=== PATIENT | female | born 1960 | race Caucasian/White ===

== ENCOUNTER → 2016-03-13 | Outpatient (CLI) | payer BC ==
--- NOTE | 2016-03-14 09:04 | MM ---
Reason for exam: screening (asymptomatic). Last mammogram was performed 1 year and 4 months ago. History: Patient is postmenopausal. Physical Findings: A clinical breast exam by your physician is recommended on an annual basis and results should be correlated with mammographic findings. MG Screening Mammo w CAD Bilateral CC and MLO view(s) were taken. Prior study comparison: November 19, 2014, bilateral MG screening mammo w CAD. There are scattered fibroglandular densities. No significant changes when compared with prior studies. ASSESSMENT: Negative, BI-RAD 1 RECOMMENDATION: Routine screening mammogram of both breasts in 1 year.
== END | disposition home or self-care (01) ==
LOC: RADMAMWWP 10:14
PROVIDERS: ATTEND Family Medicine
DX: Z12.31 Encounter for screening mammogram for malignant neoplasm of breast (principal)

== ENCOUNTER → 2016-09-05 | Outpatient (CLI) | payer BC ==
--- NOTE | 2016-09-05 15:21 | US ---
EXAMINATION TYPE: US thyroid st tissue head/neck DATE OF EXAM: 09/05/2016 COMPARISON: US CLINICAL HISTORY: Disorder of thyroid E07.9. Neck swelling GLAND SIZE: Right Lobe: 5.3 x 2.6 x 2.0 cm Overall Parenchyma: heterogenous Left Lobe: 5.5 x 2.0 x 1.9 cm Overall Parenchyma: heterogeneous Isthmus Thickness: 0.5 cm Previous right lobe thyroid measuring 5.5 x 2.7 x 2.0 cm. Previous left lobe thyroid measurement 5.0 x 2.2 x 1.7 cm. Bilateral neck scanned, no evidence of lymphadenopathy. Thyroid enlarged, heterogeneous with no defin ite nodules as seen on previous. IMPRESSION: Thyromegaly
== END | disposition home or self-care (01) ==
LOC: RADUSWWP 13:32
PROVIDERS: ATTEND Family Medicine
DX: E01.0 Iodine-deficiency related diffuse (endemic) goiter (principal)
CPT/HCPCS: 76536

== ENCOUNTER 2016-11-19 21:22 | Emergency (ER) | payer BC ==
[2016-11-19] MEDS ORDERED: IBUPROFEN 600 MG TAB PO STA (21:45)
--- NOTE | 2016-11-19 22:12 | XR ---
EXAMINATION TYPE: XR ankle complete RT DATE OF EXAM: 11/19/2016 CLINICAL HISTORY: Right ankle pain TECHNIQUE: Frontal, lateral and oblique images of the right ankle are obtained. COMPARISON: None. FINDINGS: There is no acute fracture/dislocation evident in the right ankle. The ankle mortise appe ars within normal limits. Soft tissue swelling is seen most pronounced over the lateral malleolus but surrounding the entirety of the ankle. Small inferior calcaneal heel spur is present. IMPRESSION: Mild ankle soft tissue swelling without acute fracture or dislocation in the right ankle.
--- NOTE | 2016-11-19 22:15 | ED ---
Lower Extremity Injury HPI - General Chief Complaint: Extremity Injury, Lower Stated Complaint: R foot injury Time Seen by Provider: 11/19/16 21:42 Source: patient Mode of arrival: ambulatory Limitations: no limitations - History of Present Illness Initial Comments: 56-year-old female patient presents to emergency department today for evaluation of right ankle pain. Patient states that she was up on a stool in curtains around noon today when the stool broke and she fell landing on her right foot, twisting her ankle. She states that since then she has had some swelling and pain to the area. States that she has a lot of pain with flexion of the foot. She states this makes an ambulation difficult. She denies any numbness or tingling to the foot. States that she has had ligament injury to the foot in the past. She denies falling when this happened, hitting her head, or losing consciousness. She denies any other injuries. Patient denies any headache, neck pain, back pain, chest pain, shortness of breath, dizziness, weakness, abdominal pain, nausea, vomiting, or difficulties with bowel movements or urination. - Related Data Home Medications Medication Instructions Recorded Confirmed Atorvastatin [Lipitor] 10 mg PO DAILY 11/19/16 11/19/16 Calcium Carbonate [Calcium] 600 mg PO DAILY 11/19/16 11/19/16 Cholecalciferol [Vitamin D3] 3,000 unit PO DAILY 11/19/16 11/19/16 Losartan [Cozaar] 50 mg PO DAILY 11/19/16 11/19/16 amLODIPine [Norvasc] 10 mg PO DAILY 11/19/16 11/19/16 metFORMIN HCL [Glucophage] 1,000 mg PO QAM 11/19/16 11/19/16 metFORMIN HCL [Glucophage] 500 mg PO HS 11/19/16 11/19/16 Previous Rx's Medication Instructions Recorded Ibuprofen [Motrin] 600 mg PO Q8HR PRN #30 tab 11/19/16 Allergies Allergy/AdvReac Type Severity Reaction Status Date / Time Penicillins Allergy Anaphylaxis Verified 11/19/16 21:42 Sulfa (Sulfonamide Allergy Anaphylaxis Verified 11/19/16 21:42 Antibiotics) Review of Systems ROS Statement: Those systems with pertinent positive or pertinent negative responses have been documented in the HPI. ROS Other: All systems not noted in ROS Statement are negative. Past Medical History Past Medical History: Hypertension History of Any Multi-Drug Resistant Organisms: None Reported Past Surgical History: Hysterectomy Past Psychological History: No Psychological Hx Reported Smoking Status: Current every day smoker Past Alcohol Use History: Rare Past Drug Use History: None Reported General Exam Limitations: no limitations General appearance: alert, in no apparent distress Head exam: Present: atraumatic, normocephalic, normal inspection Respiratory exam: Present: normal lung sounds bilaterally. Absent: respiratory distress, wheezes, rales, rhonchi, stridor Cardiovascular Exam: Present: regular rate, normal rhythm, normal heart sounds. Absent: systolic murmur, diastolic murmur, rubs, gallop, clicks Extremities exam: Present: tenderness (Tender in the medial and lateral aspects of the ankle.), normal capillary refill, joint swelling (Right ankle swelling, greatest over the right lateral malleolus.), other (Right ankle swelling noted. Skin is pink, warm, and dry. Cap refill less than 3 seconds.). Absent: full ROM (Increased pain with flexion, extension, eversion and inversion of the foot. ), pedal edema, calf tenderness Neurological exam: Present: alert, oriented X3, CN II-XII intact Psychiatric exam: Present: normal affect, normal mood Skin exam: Present: warm, dry, intact, normal color. Absent: rash Course Vital Signs 11/19/16 11/19/16 21:35 22:27 Temperature 98 F 97 F L Pulse Rate 104 H 90 Respiratory 20 18 Rate Blood Pressure 129/76 137/77 O2 Sat by Pulse 95 97 Oximetry Medical Decision Making - Medical Decision Making 56-year-old female patient presented for evaluation of right ankle injury after a fall around 12:00 this afternoon. X-ray was negative for any acute fracture or dislocation. Patient does exhibit soft tissue swelling and pain with range of motion of the ankle and foot. She will be placed in an ankle stirrup splint. Instructed her to perform activity as tolerated. She is instructed to rest, ice, and elevate the extremity. Instructed to take appropriate for pain control. Instructed to follow up for repeat x-ray in 7-10 days if her symptoms persist. She is instructed to return here immediately for any new, worsening, or concerning symptoms. She is to follow-up with her primary care physician one to 2 days for any other concerns. Patient verbalizes understanding and agrees with this plan. - Radiology Data Radiology results: report reviewed, image reviewed Frontal, lateral, and oblique images of the right ankle are obtained and showed no acute fracture or dislocation. The ankle mortise appears within normal limits. Soft tissue swelling is seen most pronounced over the lateral malleolus but surrounding the entirety of the ankle. Small inferior calcaneal heel spur is present. Impression by Dr. Andrews shows mild ankle soft tissue swelling without acute fracture or dislocation right ankle. Disposition Clinical Impression: Right ankle sprain Disposition: HOME SELF-CARE Condition: Good Instructions: Ankle Sprain (ED) Additional Instructions: Rest, elevate the extremity. Use splint for comfort. Pain persisting in 7-10 days to have repeat x-ray performed. Return here immediately for any new, worsening, or concerning symptoms. Prescriptions: Ibuprofen [Motrin] 600 mg PO Q8HR PRN #30 tab PRN Reason: Pain Referrals: Maco Reynolds DO [Primary Care Provider] - 1-2 days Time of Disposition: 22:15
[2016-11-19 22:28] VITALS: BP 137/77; PULSE 90; RESP 18; TEMP 97
== END 2016-11-19 22:28 | disposition home or self-care (01) ==
LOC: EC 21:22
DX: S93.401A Sprain of unspecified ligament of right ankle, initial encounter (principal); I10 Essential (primary) hypertension; F17.200 Nicotine dependence, unspecified, uncomplicated; Z79.84 Long term (current) use of oral hypoglycemic drugs; Z79.899 Other long term (current) drug therapy; Z88.0 Allergy status to penicillin; Z88.2 Allergy status to sulfonamides; W08.XXXA Fall from other furniture, initial encounter
CPT/HCPCS: 99283

== ENCOUNTER 2017-07-30 09:02 | Emergency (ER) | payer BC, OTHER ==
[2017-07-30 09:09] VITALS: BP 182/79; PULSE 104; RESP 20; TEMP 98.2
--- NOTE | 2017-07-30 10:20 | ED ---
General Adult HPI - General Chief complaint: ENT Stated complaint: Swollen Ear Time Seen by Provider: 07/30/17 10:04 Source: patient, RN notes reviewed Mode of arrival: ambulatory Limitations: no limitations - History of Present Illness Initial comments: Patient 57-year-old female presents to the emergency room today with a complaint of bilateral ear drainage at times on and off. She states she has chronic problems. She states she didn't at times notices is some drainage of years. She states specifically recent coming to the emergency room is that she' s noticed some swelling to the outer aspect of the right ear over the last few days. She states it is a little tender and painful. She states she notices it when she is eating because she feels the tugging pole of the skin. Patient denies any other complaints. Denies any injury. - Related Data Home Medications Medication Instructions Recorded Confirmed Atorvastatin [Lipitor] 10 mg PO DAILY 11/19/16 11/19/16 Calcium Carbonate [Calcium] 600 mg PO DAILY 11/19/16 11/19/16 Cholecalciferol [Vitamin D3] 3,000 unit PO DAILY 11/19/16 11/19/16 Losartan [Cozaar] 50 mg PO DAILY 11/19/16 11/19/16 amLODIPine [Norvasc] 10 mg PO DAILY 11/19/16 11/19/16 metFORMIN HCL [Glucophage] 1,000 mg PO QAM 11/19/16 11/19/16 metFORMIN HCL [Glucophage] 500 mg PO HS 11/19/16 11/19/16 Previous Rx's Medication Instructions Recorded Ibuprofen [Motrin] 600 mg PO Q8HR PRN #30 tab 11/19/16 Clindamycin HCl [Cleocin] 300 mg PO Q6HR #40 cap 07/30/17 Ofloxacin 0.3% Otic Soln [Floxin 10 drops BOTH EARS BID 7 Days ml 07/30/17 0.3% Otic Soln] Allergies Allergy/AdvReac Type Severity Reaction Status Date / Time Penicillins Allergy Anaphylaxis Verified 07/30/17 09:09 Sulfa (Sulfonamide Allergy Anaphylaxis Verified 07/30/17 09:09 Antibiotics) Review of Systems ROS Statement: Those systems with pertinent positive or pertinent negative responses have been documented in the HPI. ROS Other: All systems not noted in ROS Statement are negative. Past Medical History Past Medical History: Hypertension History of Any Multi-Drug Resistant Organisms: None Reported Past Surgical History: Hysterectomy Past Psychological History: No Psychological Hx Reported Smoking Status: Current every day smoker Past Alcohol Use History: Rare Past Drug Use History: None Reported General Exam - General Exam Comments Initial Comments: General: The patient is awake and alert, in no distress, and does not appear acutely ill. Eye: Pupils are equal, round and reactive to light, extra-ocular movements are intact. No nystagmus. There is normal conjunctiva bilaterally. No signs of icterus. Ears, nose, mouth and throat: There are moist mucous membranes and no oral lesions. Patient does have some mild drainage in the ear canal bilaterally that is white in nature. Patient does have swelling to the right ear on the outside that is red and tender on exam. Mild swelling to the base of the ear. Neck: The neck is supple, there is no tenderness or JVD. Musculoskeletal: Normal ROM, no tenderness. Strength 5/5. Sensation intact. Pulses equal bilaterally 2+. Neurological: A&O x 3. CN II-XII intact, There are no obvious motor or sensory deficits. Coordination appears grossly intact. Speech is normal. Skin: Skin is warm and dry and no rashes or lesions are noted. Psychiatric: Cooperative, appropriate mood & affect, normal judgment. Limitations: no limitations Course Vital Signs 07/30/17 09:07 Temperature 98.2 F Pulse Rate 104 H Respiratory 20 Rate Blood Pressure 182/79 O2 Sat by Pulse 96 Oximetry Medical Decision Making - Medical Decision Making Patient does admit to some chronic symptoms as drainage from the ears. She'll be placed on eardrops to cover for a otitis externa. Patient also has increased redness and inflammation to the outer aspect of the right year consistent with a cellulitis of the ear. Will be placed on oral antibiotics. She is advised follow-up with ENT over the next 2 days return if symptoms increase or worsen. Disposition Clinical Impression: Otitis externa of both ears, Cellulitis of external ear Disposition: HOME SELF-CARE Condition: Good Instructions: Cellulitis (ED) Additional Instructions: Please use medication as discussed. Please follow-up with ENT/family doctor in the next 2 days of symptoms have not improved. Please return to emergency room if the symptoms increase or worsen or for any other concerns. Prescriptions: Clindamycin HCl [Cleocin] 300 mg PO Q6HR #40 cap Ofloxacin 0.3% Otic Soln [Floxin 0.3% Otic Soln] 10 drops BOTH EARS BID 7 Days ml Is patient prescribed a controlled substance at d/c from ED?: No Referrals: Maco Reynolds DO [Primary Care Provider] - 1-2 days Waldo Guzmán MD [STAFF PHYSICIAN] - 1-2 days
== END 2017-07-30 10:26 | disposition home or self-care (01) ==
LOC: EC 09:02
DX: H60.93 Unspecified otitis externa, bilateral (principal); H60.11 Cellulitis of right external ear; I10 Essential (primary) hypertension; F17.200 Nicotine dependence, unspecified, uncomplicated; Z79.84 Long term (current) use of oral hypoglycemic drugs; Z79.899 Other long term (current) drug therapy; Z88.0 Allergy status to penicillin; Z88.2 Allergy status to sulfonamides
CPT/HCPCS: 99283

== ENCOUNTER 2019-03-09 23:41 | Emergency (ER) | payer BC ==
[2019-03-10 00:23] VITALS: BP 149/77; RESP 20; TEMP 98.1
[2019-03-10] MEDS ORDERED: cefTRIAXone 250 MG VIAL IM STA (01:06)
[2019-03-10] MEDS ORDERED: AZITHROMYCIN 500 MG TAB PO STA (01:06)
[2019-03-10] MEDS ORDERED: IPRATROPIUM-ALBUTEROL 3 ML NEB INHALATION STA (01:06)
[2019-03-10] MEDS ORDERED: BENZONATATE 100 MG CAP PO STA (01:06)
--- NOTE | 2019-03-10 01:07 | ED ---
URI HPI - General Chief Complaint: Upper Respiratory Infection Stated Complaint: URI Time Seen by Provider: 03/10/19 01:00 Source: patient, family, RN notes reviewed, old records reviewed Mode of arrival: ambulatory Limitations: no limitations - History of Present Illness Initial Comments: This is a 58-year-old female to the ED for evaluation. Patient presents today for evaluation of a cough congestion persisting cough and congestion states she has a smoker month admits to decreased appetite that she has been sick sick for about 2 months. Patient was is increased mainly increased cough and congestion. She has metastases immunizations being up-to-date but no recent travel history no country travel history and denies any pain. Patient did miss work today he work note for missing work today. Patient again has not smoked for the past month has no history of heart disease no significant medical history takes no medications for her heart she has are some mild diabetes. She has not any fevers MD Complaint: cough, sore throat, nasal congestion -: month(s) Severity: mild Severity scale (1-10): 3 Consistency: intermittent Improves With: nothing Worsens With: nothing Context: new medications (Patient just taking [id number] medications) Associated Symptoms: cough, weight loss Treatments Prior to Arrival: none - Related Data Home Medications Medication Instructions Recorded Confirmed Atorvastatin [Lipitor] 10 mg PO DAILY 11/19/16 07/30/17 Calcium Carbonate [Calcium] 600 mg PO DAILY 11/19/16 07/30/17 Cholecalciferol [Vitamin D3] 3,000 unit PO DAILY 11/19/16 07/30/17 Losartan [Cozaar] 50 mg PO DAILY 11/19/16 07/30/17 amLODIPine [Norvasc] 10 mg PO DAILY 11/19/16 07/30/17 metFORMIN HCL [Glucophage] 1,000 mg PO QAM 11/19/16 07/30/17 metFORMIN HCL [Glucophage] 500 mg PO HS 11/19/16 07/30/17 Loratadine [Claritin] 10 mg PO DAILY 07/30/17 07/30/17 Previous Rx's Medication Instructions Recorded Clindamycin HCl [Cleocin] 300 mg PO Q6HR #40 cap 07/30/17 Ofloxacin 0.3% Otic Soln [Floxin 10 drops BOTH EARS BID 7 Days ml 07/30/17 0.3% Otic Soln] Azithromycin [Zithromax Z-pack] 0 mg PO DIRECTED #1 pack 03/10/19 Benzonatate [Tessalon Perles] 100 mg PO TID #20 cap 03/10/19 Allergies Allergy/AdvReac Type Severity Reaction Status Date / Time Penicillins Allergy Anaphylaxis Verified 03/10/19 00:24 Sulfa (Sulfonamide Allergy Anaphylaxis Verified 03/10/19 00:24 Antibiotics) Review of Systems ROS Statement: Those systems with pertinent positive or pertinent negative responses have been documented in the HPI. ROS Other: All systems not noted in ROS Statement are negative. Past Medical History Past Medical History: Diabetes Mellitus, Hypertension History of Any Multi-Drug Resistant Organisms: None Reported Past Surgical History: Hysterectomy Past Psychological History: No Psychological Hx Reported Smoking Status: Former smoker Past Alcohol Use History: Rare Past Drug Use History: None Reported General Exam Limitations: no limitations General appearance: alert, in no apparent distress Head exam: Present: atraumatic, normocephalic, normal inspection Eye exam: Present: normal appearance, PERRL, EOMI. Absent: scleral icterus, conjunctival injection, periorbital swelling ENT exam: Present: normal exam, mucous membranes moist Neck exam: Present: normal inspection. Absent: tenderness, meningismus, lymphadenopathy Respiratory exam: Present: normal lung sounds bilaterally. Absent: respiratory distress, wheezes, rales, rhonchi, stridor Cardiovascular Exam: Present: regular rate, normal rhythm, normal heart sounds. Absent: systolic murmur, diastolic murmur, rubs, gallop, clicks GI/Abdominal exam: Present: soft, normal bowel sounds. Absent: distended, tenderness, guarding, rebound, rigid Extremities exam: Present: normal inspection, full ROM, normal capillary refill. Absent: tenderness, pedal edema, joint swelling, calf tenderness Back exam: Present: normal inspection Neurological exam: Present: alert, oriented X3, CN II-XII intact Psychiatric exam: Present: normal affect, normal mood Skin exam: Present: warm, dry, intact, normal color. Absent: rash Course Vital Signs 03/10/19 03/10/19 00:20 01:25 Temperature 98.1 F Pulse Rate 99 88 Respiratory 20 Rate Blood Pressure 149/77 O2 Sat by Pulse 97 Oximetry - Reevaluation(s) Reevaluation #1: 03/10/19 01:18 Medical records reviewed Reevaluation #2: 03/10/19 01:18 Patient is in no acute distress feeling improved Medical Decision Making - Medical Decision Making 58 female with nonspecific' of respiratory infectious type symptoms including cough and congestion. Patient be given antibiotics and cough medication can be discharged home - Radiology Data Radiology results: report reviewed (Chest x-ray is negative for acute disease), image reviewed Disposition Clinical Impression: Acute upper respiratory infection, Community acquired pneumonia Disposition: HOME SELF-CARE Condition: Good Instructions (If sedation given, give patient instructions): Upper Respiratory Infection (ED), Community Acquired Pneumonia (ED) Prescriptions: Benzonatate [Tessalon Perles] 100 mg PO TID #20 cap Azithromycin [Zithromax Z-pack] 0 mg PO DIRECTED #1 pack Is patient prescribed a controlled substance at d/c from ED?: No Referrals: None,Stated [Primary Care Provider] - 1-2 days
--- NOTE | 2019-03-10 01:22 | XR ---
EXAMINATION TYPE: XR chest 2V DATE OF EXAM: 03/10/2019 COMPARISON: 12/24/2015 HISTORY: Cough and congestion TECHNIQUE: 2 views FINDINGS: There is a mild poorly marginated infiltrate right lung base. The other lung means are clifford ar. Heart and mediastinum are normal. There is no pleural effusion. Bony thorax is intact. IMPRESSION: There is a new minimal right lower lobe pneumonia compared to old exam.
[2019-03-10 01:36] VITALS: PULSE 85
== END 2019-03-10 07:15 | disposition home or self-care (01) ==
LOC: EC 23:41
DX: J18.9 Pneumonia, unspecified organism (principal); J06.9 Acute upper respiratory infection, unspecified; E11.9 Type 2 diabetes mellitus without complications; I10 Essential (primary) hypertension; Z79.84 Long term (current) use of oral hypoglycemic drugs; Z79.899 Other long term (current) drug therapy; Z88.0 Allergy status to penicillin; Z88.2 Allergy status to sulfonamides; Z87.891 Personal history of nicotine dependence
CPT/HCPCS: 94640; 71046; 99284; 96372; J0696

== ENCOUNTER 2020-11-03 05:24 | Emergency (ER) | payer BC ==
[2020-11-03 05:31] VITALS: BP 152/67; PULSE 95; RESP 18; TEMP 97.9
--- NOTE | 2020-11-03 05:38 | ED ---
Trauma HPI - General Chief Complaint: Recheck/Abnormal Lab/Rx Stated Complaint: Rib Pain Time Seen by Provider: 11/03/20 05:29 Source: patient, RN notes reviewed, old records reviewed Mode of arrival: ambulatory Limitations: no limitations - History of Present Illness Initial Comments: This is a 60-year-old female to the emergency department tonight for evaluation of pain severe pain left-sided rib pain after fall. Fall was about a week ago she is a smoker with shortness of breath especially with deep breathing. Patient denies any specific chest pain no difficulty breathing able to amply without difficulty and exercise, patient states she has have severe pain to her left rib cage especially with palpation. No other injury from fall and no other complaints MD Complaint: fall, injury -: week(s) Loss of Consciousness: yes Location: chest Severity scale (1-10): 7 Consistency: intermittent Context: mechanical fall Associated Symptoms: chest pain Treatments Prior to Arrival: other (none) - Related Data Home Medications Medication Instructions Recorded Confirmed Atorvastatin [Lipitor] 10 mg PO DAILY 11/19/16 07/30/17 Calcium Carbonate [Calcium] 600 mg PO DAILY 11/19/16 07/30/17 Cholecalciferol [Vitamin D3] 3,000 unit PO DAILY 11/19/16 07/30/17 Losartan [Cozaar] 50 mg PO DAILY 11/19/16 07/30/17 amLODIPine [Norvasc] 10 mg PO DAILY 11/19/16 07/30/17 metFORMIN HCL [Glucophage] 1,000 mg PO QAM 11/19/16 07/30/17 metFORMIN HCL [Glucophage] 500 mg PO HS 11/19/16 07/30/17 Loratadine [Claritin] 10 mg PO DAILY 07/30/17 07/30/17 Previous Rx's Medication Instructions Recorded Ofloxacin 0.3% Otic Soln [Floxin 10 drops BOTH EARS BID 7 Days ml 07/30/17 0.3% Otic Soln] clindamycin HCL [Cleocin] 300 mg PO Q6HR #40 cap 07/30/17 Azithromycin [Zithromax Z-pack (6 0 mg PO DIRECTED #1 pack 03/10/19 tabs)] Benzonatate [Tessalon Perles] 100 mg PO TID #20 cap 03/10/19 Allergies Allergy/AdvReac Type Severity Reaction Status Date / Time Penicillins Allergy Anaphylaxis Verified 11/03/20 05:30 Sulfa (Sulfonamide Allergy Anaphylaxis Verified 11/03/20 05:30 Antibiotics) Review of Systems ROS Statement: Those systems with pertinent positive or pertinent negative responses have been documented in the HPI. ROS Other: All systems not noted in ROS Statement are negative. Past Medical History Past Medical History: Diabetes Mellitus, Hypertension History of Any Multi-Drug Resistant Organisms: None Reported Past Surgical History: Hysterectomy Past Psychological History: No Psychological Hx Reported Smoking Status: Current every day smoker Past Alcohol Use History: Rare Past Drug Use History: None Reported General Exam Limitations: no limitations General appearance: alert, in no apparent distress Head exam: Present: atraumatic, normocephalic, normal inspection Eye exam: Present: normal appearance, PERRL, EOMI. Absent: scleral icterus, conjunctival injection, periorbital swelling ENT exam: Present: normal exam, mucous membranes moist Neck exam: Present: normal inspection. Absent: tenderness, meningismus, lymphadenopathy Respiratory exam: Present: normal lung sounds bilaterally. Absent: respiratory distress, wheezes, rales, rhonchi, stridor Cardiovascular Exam: Present: regular rate, normal rhythm, normal heart sounds, other (Severe left-sided rib tenderness with). Absent: systolic murmur, d iastolic murmur, rubs, gallop, clicks GI/Abdominal exam: Present: soft, normal bowel sounds. Absent: distended, tenderness, guarding, rebound, rigid Extremities exam: Present: normal inspection, full ROM, normal capillary refill. Absent: tenderness, pedal edema, joint swelling, calf tenderness Back exam: Present: normal inspection Neurological exam: Present: alert, oriented X3, CN II-XII intact Psychiatric exam: Present: normal affect, normal mood Skin exam: Present: warm, dry, intact, normal color. Absent: rash Course Vital Signs 11/03/20 05:28 Temperature 97.9 F Pulse Rate 95 Respiratory 18 Rate Blood Pressure 152/67 O2 Sat by Pulse 98 Oximetry - Reevaluation(s) Reevaluation #1: 11/03/20 Medical record is reviewed Patient has adequate pain control Patient feels comfortable with discharge home Medical Decision Making - Medical Decision Making 60 female with chronic rib pain secondary to a fall. No fractures noted no pneumothorax a she is in no distress and pain control and can be discharged - Radiology Data Radiology results: report reviewed (Chest x-ray rib studies negative for acute disease), image reviewed Disposition Clinical Impression: Rib pain on left side Disposition: HOME SELF-CARE Condition: Good Instructions (If sedation given, give patient instructions): Rib Contusion (ED) Is patient prescribed a controlled substance at d/c from ED?: No Referrals: Tracy Mayer DO [Primary Care Provider] - 1-2 days
--- NOTE | 2020-11-03 06:12 | XR ---
EXAMINATION TYPE: XR ribs LT w pa chest xray DATE OF EXAM: 11/03/2020 COMPARISON: Chest x-ray 03/10/2019 HISTORY: Chest pain TECHNIQUE: 5 views FINDINGS: Heart is normal. Lungs are clear of infiltrate. There is no pleural effusion or pneumothora x. Left shoulder is intact. There is no evidence of rib fracture. IMPRESSION: No active cardiopulmonary disease. Normal left ribs. No change.
[2020-11-03] MEDS ORDERED: IBUPROFEN 600 MG TAB PO STA (06:17)
[2020-11-03] MEDS ORDERED: Acetaminophen-Codeine 300-30mg TAB PO STA (06:17)
[2020-11-03] MEDS ORDERED: ACET/COD 300 MG/30 MG STARTER PACK 6 TAB BTL PO STA (06:17)
[2020-11-03] MEDS ORDERED: IBUPROFEN 600 MG STARTER PACK 4 TAB BTL PO STA (06:17)
== END 2020-11-03 06:40 | disposition home or self-care (01) ==
LOC: EC 05:24
DX: R07.81 Pleurodynia (principal); E11.9 Type 2 diabetes mellitus without complications; I10 Essential (primary) hypertension; F17.200 Nicotine dependence, unspecified, uncomplicated; Z79.84 Long term (current) use of oral hypoglycemic drugs; Z88.0 Allergy status to penicillin; Z88.2 Allergy status to sulfonamides; Z90.710 Acquired absence of both cervix and uterus
CPT/HCPCS: 99284

== ENCOUNTER 2022-02-28 03:24 | Inpatient (IN) | payer BC ==
[2022-02-28 04:28] LABS: Basophils % (A) 0 %; Eosinophils % (A) 0 %; HCT 38.6 % (34.0-46.0); HGB 13.2 gm/dL (11.4-16.0); Lymphocytes # (A) 2.1 k/uL (1.0-4.8); Lymphocytes % (A) 13 %; MCH 31.6 pg (25.0-35.0); MCHC 34.2 g/dL (31.0-37.0); MCV 92.4 fL (80.0-100.0); Mean Platelet Volume 8.5; Monocytes # (A) 0.8 k/uL (0-1.0); Monocytes % (A) 5 %; Neutrophils # (A) 13.4 k/uL (1.3-7.7); Neutrophils % (A) 80 %; Platelet Count 189 k/uL (150-450); RBC 4.18 m/uL (3.80-5.40); RDW 11.7 % (11.5-15.5); WBC 16.7 k/uL (3.8-10.6)
[2022-02-28 04:43] LABS: ALT 16 U/L (4-34); AST 21 U/L (14-36); African American GFR (CKD) >90 (>60 ml/min/1.73 sqM); Alkaline Phosphatase 85 U/L (38-126); Anion Gap 7 mmol/L; Blood Urea Nitrogen 37 mg/dL (7-17); Calcium 8.5 mg/dL (8.4-10.2); Carbon Dioxide 24 mmol/L (22-30); Chloride 102 mmol/L (98-107); Glucose 151 mg/dL (74-99); Non-African American GFR(CKD) 87 (>60 ml/min/1.73 sqM); Potassium 4.1 mmol/L (3.5-5.1); Sodium 133 mmol/L (137-145); Total Bilirubin 0.5 mg/dL (0.2-1.3); Total Protein 6.6 g/dL (6.3-8.2)
--- NOTE | 2022-02-28 04:52 | XR ---
EXAMINATION TYPE: XR chest 2V DATE OF EXAM: 02/28/2022 COMPARISON: 11/03/2020 HISTORY: Short of breath TECHNIQUE: FINDINGS: Heart is normal. Lungs are clear of consolidation. There is some coarsening of the intersti tial markings. No pleural effusion. Bony thorax is intact. IMPRESSION: There is slight coarsening of interstitial markings consistent with mild fibrosis which i s new compared to old exam. Normal heart.
[2022-02-28] MEDS ORDERED: DEXAMETHASONE SOD PHOSPHATE 10 MG/ML 1 ML VIAL IVP STA (06:13)
[2022-02-28] MEDS ORDERED: IPRATROPIUM-ALBUTEROL 3 ML NEB INHALATION STA (06:17)
--- NOTE | 2022-02-28 06:30 | ED ---
SOB HPI - General Chief Complaint: Upper Respiratory Infection Stated Complaint: COLD,COUGH Time Seen by Provider: 02/28/22 05:57 Source: patient, RN notes reviewed Mode of arrival: ambulatory - History of Present Illness Initial Comments: This is a 61-year-old female who presents to the emergency department for coughing, congestion, and difficulty breathing. Symptoms started 6 days ago. She is a daily smoker. Denies any history of COPD or asthma. She is not on oxygen at home. Denies any sick contacts. Denies any fevers, chills, sore throat, chest pain, palpitations, abdominal pain, nausea, vomiting, diarrhea, back pain, or headaches. MD Complaint: shortness of breath, cough Onset/Timin -: days(s) - Related Data Home Oxygen Therapy: No Home Medications Medication Instructions Recorded Confirmed Atorvastatin [Lipitor] 20 mg PO DAILY 02/28/22 02/28/22 Insulin Degludec [Tresiba 12 units SQ DAILY 02/28/22 02/28/22 Flextouch U-200 Pen] lisinopriL [Prinivil] 10 mg PO DAILY 02/28/22 02/28/22 Previous Rx's Medication Instructions Recorded Oseltamivir [Tamiflu] 75 mg PO Q12HR #8 cap 03/02/22 predniSONE 0 mg PO DIRECTED #30 tab 03/02/22 Allergies Allergy/AdvReac Type Severity Reaction Status Date / Time Penicillins Allergy Anaphylaxis Verified 02/28/22 10:25 & Hives Sulfa (Sulfonamide Allergy Anaphylaxis Verified 02/28/22 10:25 Antibiotics) & Hives Review of Systems ROS Statement: Those systems with pertinent positive or pertinent negative responses have been documented in the HPI. ROS Other: All systems not noted in ROS Statement are negative. Past Medical History Past Medical History: Diabetes Mellitus, Hyperlipidemia, Hypertension History of Any Multi-Drug Resistant Organisms: None Reported Past Surgical History: Hysterectomy Past Psychological History: No Psychological Hx Reported Smoking Status: Current every day smoker Past Alcohol Use History: Rare Past Drug Use History: None Reported General Exam General appearance: alert, in no apparent distress Head exam: Present: atraumatic, normocephalic, normal inspection Respiratory exam: Present: normal lung sounds bilaterally. Absent: respiratory distress, wheezes, rales, rhonchi, stridor Cardiovascular Exam: Present: regular rate, normal rhythm, normal heart sounds. Absent: systolic murmur, diastolic murmur, rubs, gallop, clicks Neurological exam: Present: alert, oriented X3, CN II-XII intact Psychiatric exam: Present: normal affect, normal mood Skin exam: Present: warm, dry, intact, normal color. Absent: rash Course Vital Signs 02/28/22 02/28/22 02/28/22 03:30 04:14 05:00 Temperature 98.2 F Pulse Rate 117 H 86 Pulse Rate [ Tree Faller ] Respiratory 16 26 H 18 Rate Blood Pressure 106/70 108/57 Blood Pressure [Left Arm] O2 Sat by Pulse 90 L 96 Oximetry 02/28/22 02/28/22 02/28/22 06:00 06:47 07:32 Temperature Pulse Rate 84 72 Pulse Rate [ Tree Faller ] Respiratory 20 Rate Blood Pressure 100/60 Blood Pressure [Left Arm] O2 Sat by Pulse 95 86 L Oximetry 02/28/22 02/28/22 02/28/22 07:47 09:59 10:18 Temperature 97.9 F Pulse Rate 76 71 Pulse Rate [ 82 Tree Faller ] Respiratory 18 20 Rate Blood Pressure 99/56 Blood Pressure 93/60 [Left Arm] O2 Sat by Pulse 93 L 93 L Oximetry 02/28/22 11:22 Temperature 97.9 F Pulse Rate 71 Pulse Rate [ Tree Faller ] Respiratory 20 Rate Blood Pressure 99/56 Blood Pressure [Left Arm] O2 Sat by Pulse 93 L Oximetry Medical Decision Making - Medical Decision Making This is a 61-year-old female who presents to the emergency department for coughing, congestion, and difficulty breathing. Was pt. sent in by a medical professional or institution? @ -No Did you speak to anyone other than the patient for history? @ -No Did you review nursing and triage notes? @ -Agree, accurate with regards to the patient's symptoms. Were old charts reviewed? @ -No Differential Diagnosis? @ -Differential Dyspnea: Coronary syndrome, arrhythmia, tamponade, asthma, COPD, pulmonary embolism, pneumonia, pneumothorax, pulmonary effusion, anaphylaxis, diabetic ketoacidosis, flailed chest, pulmonary contusion, diaphragmatic rupture, anemia, neuromuscular, this is not meant to be an all-inclusive list. X-rays interpreted by me (1pt min.)? @ -Chest x-ray obtained, my interpretation identifies no localized consolidations or infiltrates. What testing was considered but not performed? (CT, X-rays, U/S, labs)? Why? @ None What meds were considered but not given? Why? @ -None Did you discuss the management of the patient with other professionals? @ -Dr. Shen, who accepts the patient for admission. He requests she be started on IV steroids and Tamiflu. Will proceed with IV steroids, patient is out of the timeframe where Tamiflu can be administered. Did you reconcile home meds? @ -Yes Was smoking cessation discussed for >3mins.? @ -I discussed smoking cessation for greater than 3 minutes. The risk of smoking were discussed with the patient including but not limited to risks of cancer, stroke, coronary artery disease and COPD. Also discussed with patient were multiple methods of quitting smoking. Lastly we discussed the financial cost of smoking. Was critical care preformed (if so, how long)? @ -No Were there social determinants of health that impacted care today? How? (Homelessness, low income, unemployed, alcoholism, drug addiction, transportation, low edu. Level, literacy, decrease access to med. care, long term, rehab)? @ -No Was there de-escalation of care discussed even if they declined? (Discuss DNR or withdrawal of care, Hospice)? @ -No What co-morbidities impacted this encounter? (DM, HTN, Smoking, COPD, CAD, Cancer, CVA, Hep., AIDS, mental health diagnosis, sleep apnea, morbid obesity)? @ -DM, HTN, smoking Was patient admitted / discharged? @ -When I went to evaluate the patient, she was on 3 L of oxygen via nasal cannula. We took off the nasal cannula to see how she would tolerate it. She subsequently dropped to 86 L/m. She was then restarted on the nasal cannula. DuoNeb breathing treatment and Decadron were both administered. After the DuoNeb breathing treatment, she was satting at approximately 90% on room air. Lab work reveals leukocytosis and the patient is positive for influenza A. Adrianna romeront admitted to medicine for hypoxemia secondary to influenza A. She is out of the timeframe for Tamiflu, as symptoms have been present for 6 days. Scheduled Solu-Medrol at 60 mg every 6 hours was initiated. Drug Therapy requiring intensive monitoring for toxicity (Heparin, Nitro, Insulin, Cardizem)? @ -None Were any procedures done? @ -No Diagnosis/symptom? @ -Influenza A Acute, or Chronic, or Acute on Chronic? @ -Acute Uncomplicated (without systemic symptoms) or Complicated (systemic symptoms)? @ -Complicated Side effects of treatment? @ -Adverse reactions to provided medications. Exacerbation, Progression, or Severe Exacerbation] @ -Not applicable Poses a threat to life or bodily function? @ -Yes, may pose a threat to her life if her oxygen saturation continues to decrease. Diagnosis/symptom? @ -Hypoxemia Acute, or Chronic, or Acute on Chronic? @ -Acute Uncomplicated (without systemic symptoms) or Complicated (systemic symptoms)? @ -Complicated Side effects of treatment? @ -Adverse reactions to provided medications. Exacerbation, Progression, or Severe Exacerbation] @ -Not applicable Poses a threat to life or bodily function? @ -This can become a life-threatening issue if it continues to persist or worsens. This case was discussed in detail with the attending ED physician. Presentation, findings, and treatment plan discussed in detail as well. - Lab Data Result diagrams: 02/28/22 04:14 02/28/22 04:14 Lab Results 02/28/22 02/28/22 02/28/22 Range/Units 04:14 04:14 04:14 WBC 16.7 H (3.8-10.6) k/uL RBC 4.18 (3.80-5.40) m/uL Hgb 13.2 (11.4-16.0) gm/dL Hct 38.6 (34.0-46.0) % MCV 92.4 (80.0-100.0) fL MCH 31.6 (25.0-35.0) pg MCHC 34.2 (31.0-37.0) g/dL RDW 11.7 (11.5-15.5) % Plt Count 189 (150-450) k/uL MPV 8.5 Neutrophils % 80 % Lymphocytes % 13 % Monocytes % 5 % Eosinophils % 0 % Basophils % 0 % Neutrophils # 13.4 H (1.3-7.7) k/uL Lymphocytes # 2.1 (1.0-4.8) k/uL Monocytes # 0.8 (0-1.0) k/uL Eosinophils # 0.0 (0-0.7) k/uL Basophils # 0.0 (0-0.2) k/uL Sodium 133 L (137-145) mmol/L Potassium 4.1 (3.5-5.1) mmol/L Chloride 102 (98-107) mmol/L Carbon Dioxide 24 (22-30) mmol/L Anion Gap 7 mmol/L BUN 37 H (7-17) mg/dL Creatinine 0.76 (0.52-1.04) mg/dL Est GFR (CKD-EPI)AfAm >90 (>60 ml/min/1.73 sqM) Est GFR (CKD-EPI)NonAf 87 (>60 ml/min/1.73 sqM) Glucose 151 H (74-99) mg/dL Plasma Lactic Acid Cheo 1.0 (0.7-2.0) mmol/L Calcium 8.5 (8.4-10.2) mg/dL Total Bilirubin 0.5 (0.2-1.3) mg/dL AST 21 (14-36) U/L ALT 16 (4-34) U/L Alkaline Phosphatase 85 (38-126) U/L Troponin I (0.000-0.034) ng/mL Total Protein 6.6 (6.3-8.2) g/dL Albumin 4.0 (3.5-5.0) g/dL Procalcitonin (0.02-0.09) ng/mL Influenza Type A (PCR) (Not Detectd) Influenza Type B (PCR) (Not Detectd) RSV (PCR) (Not Detectd) SARS-CoV-2 (PCR) (Not Detectd) 02/28/22 02/28/22 02/28/22 Range/Units 04:14 04:14 04:30 WBC (3.8-10.6) k/uL RBC (3.80-5.40) m/uL Hgb (11.4-16.0) gm/dL Hct (34.0-46.0) % MCV (80.0-100.0) fL MCH (25.0-35.0) pg MCHC (31.0-37.0) g/dL RDW (11.5-15.5) % Plt Count (150-450) k/uL MPV Neutrophils % % Lymphocytes % % Monocytes % % Eosinophils % % Basophils % % Neutrophils # (1.3-7.7) k/uL Lymphocytes # (1.0-4.8) k/uL Monocytes # (0-1.0) k/uL Eosinophils # (0-0.7) k/uL Basophils # (0-0.2) k/uL Sodium (137-145) mmol/L Potassium (3.5-5.1) mmol/L Chloride (98-107) mmol/L Carbon Dioxide (22-30) mmol/L Anion Gap mmol/L BUN (7-17) mg/dL Creatinine (0.52-1.04) mg/dL Est GFR (CKD-EPI)AfAm (>60 ml/min/1.73 sqM) Est GFR (CKD-EPI)NonAf (>60 ml/min/1.73 sqM) Glucose (74-99) mg/dL Plasma Lactic Acid Cheo (0.7-2.0) mmol/L Calcium (8.4-10.2) mg/dL Total Bilirubin (0.2-1.3) mg/dL AST (14-36) U/L ALT (4-34) U/L Alkaline Phosphatase (38-126) U/L Troponin I <0.012 (0.000-0.034) ng/mL Total Protein (6.3-8.2) g/dL Albumin (3.5-5.0) g/dL Procalcitonin 0.14 H (0.02-0.09) ng/mL Influenza Type A (PCR) Detected A (Not Detectd) Influenza Type B (PCR) Not Detected (Not Detectd) RSV (PCR) Not Detected (Not Detectd) SARS-CoV-2 (PCR) Not Detected (Not Detectd) - Radiology Data Radiology results: report reviewed, image reviewed Disposition Clinical Impression: Influenza A, Hypoxemia Disposition: ADMITTED IP TO THIS HOSP Condition: Stable
[2022-02-28] MEDS ORDERED: ONDANSETRON 4 MG/2 ML VIAL IVP PRN (08:48)
[2022-02-28] MEDS ORDERED: NALOXONE 0.4 MG/ML 1 ML VIAL IV PRN (08:48)
[2022-02-28] MEDS ORDERED: HYDROcodone/APAP 5-325MG 1 EACH TAB PO PRN (08:58)
[2022-02-28] MEDS ORDERED: IBUPROFEN 400 MG TAB PO PRN (08:58)
[2022-02-28] MEDS ORDERED: ACETAMINOPHEN TAB 325 MG TAB PO PRN (08:58)
[2022-02-28] MEDS: methylPREDNISolone SOD SUCCI 125 MG/2 ML VIAL IV SCH ×2 (10:04→17:57)
[2022-02-28] MEDS: PANTOPRAZOLE 40 MG/10 ML VIAL IV SCH (10:04)
[2022-02-28 17:16] LABS: Glucose,Whole Blood 401 mg/dL (70-110)
[2022-02-28] MEDS: INSULIN ASPART (NovoLOG) 100 UNIT/ML VIAL SQ SCH ×2 (17:58→20:56)
[2022-02-28 20:18] LABS: Glucose,Whole Blood 549 mg/dL (70-110)
[2022-02-28 20:18] LABS: Glucose,Whole Blood 532 mg/dL (70-110)
[2022-02-28] MEDS: INSULIN DETEMIR (LEVEMIR) 100 UNIT/ML SYR SQ SCH (22:25)
[2022-02-28 23:52] LABS: Glucose,Whole Blood 223 mg/dL (70-110)
[2022-03-01] MEDS: methylPREDNISolone SOD SUCCI 125 MG/2 ML VIAL IV SCH ×5 (00:32→23:54)
[2022-03-01 07:36] LABS: Glucose,Whole Blood 155 mg/dL (70-110)
[2022-03-01] MEDS: INSULIN ASPART (NovoLOG) 100 UNIT/ML VIAL SQ SCH ×4 (08:32→20:41)
[2022-03-01] MEDS: PANTOPRAZOLE 40 MG/10 ML VIAL IV SCH (08:33)
[2022-03-01] MEDS: lisinopriL 10 MG TAB PO SCH (08:33)
[2022-03-01] MEDS: ATORVASTATIN 20 MG TAB PO SCH (08:33)
[2022-03-01 12:40] LABS: Glucose,Whole Blood 353 mg/dL (70-110)
[2022-03-01 17:09] LABS: Glucose,Whole Blood 231 mg/dL (70-110)
[2022-03-01 19:52] VITALS: RESP 15
[2022-03-01 20:10] LABS: Glucose,Whole Blood 144 mg/dL (70-110)
[2022-03-01] MEDS: INSULIN DETEMIR (LEVEMIR) 100 UNIT/ML SYR SQ SCH (20:47)
--- NOTE | 2022-03-01 22:21 | P.HPIM ---
History of Present Illness H&P Date: 03/01/22 Chief Complaint: shortness of breath Marisol Woo is a 61 yo F with PMH of T2DM, HTN, HLD who presented to the ED with 3 day history of increasing shortness of breath, malaise. She states that over the weekend she began to feel sick and developed a productive cough, this p rogressed and she began to feel short of breath so came to the hospital. On presentation pt tachycardic and hypoxic, WBC 16.7k, procalcitonin 0.16, flu A positive. CXR with prominent interstitial markings. Review of Systems All systems: negative Constitutional: Reports fever, Reports malaise, Reports weakness, Denies chills Eyes: denies blurred vision, denies pain Ears, nose, mouth and throat: Denies headache, Denies sore throat Cardiovascular: Denies chest pain, Denies shortness of breath Respiratory: Reports cough, Reports dyspnea Gastrointestinal: Denies abdominal pain, Denies diarrhea, Denies nausea, Denies vomiting Genitourinary: Denies dysuria, Denies hematuria Musculoskeletal: Denies myalgias Integumentary: Denies pruritus, Denies rash Neurological: Denies numbness, Denies weakness Psychiatric: Denies anxiety, Denies depression Endocrine: Denies fatigue, Denies weight change Past Medical History Past Medical History: Diabetes Mellitus, Hyperlipidemia, Hypertension History of Any Multi-Drug Resistant Organisms: None Reported Past Surgical History: Hysterectomy Past Anesthesia/Blood Transfusion Reactions: No Reported Reaction Past Psychological History: No Psychological Hx Reported Smoking Status: Current every day smoker Past Alcohol Use History: Rare Past Drug Use History: None Reported Medications and Allergies Home Medications Medication Instructions Recorded Confirmed Type Atorvastatin [Lipitor] 20 mg PO DAILY 02/28/22 02/28/22 History Insulin Degludec [Tresiba 12 units SQ DAILY 02/28/22 02/28/22 History Flextouch U-200 Pen] lisinopriL [Prinivil] 10 mg PO DAILY 02/28/22 02/28/22 History Allergies Allergy/AdvReac Type Severity Reaction Status Date / Time Penicillins Allergy Anaphylaxis Verified 02/28/22 10:25 & Hives Sulfa (Sulfonamide Allergy Anaphylaxis Verified 02/28/22 10:25 Antibiotics) & Hives Physical Exam Vitals: Vital Signs Temp Pulse Pulse Pulse Pulse Pulse Resp 03/01/22 18:58 97.8 F 77 15 03/01/22 12:45 97.8 F 65 65 68 65 76 18 03/01/22 08:20 03/01/22 07:35 97.5 F L 64 18 03/01/22 01:34 98.0 F 81 14 BP Pulse Ox Pulse Ox Pulse Ox Pulse Ox Pulse Ox 03/01/22 18:58 112/56 91 L 03/01/22 12:45 93/47 91 L 92 L 91 L 86 L 85 L 03/01/22 08:20 90 L 03/01/22 07:35 100/60 90 L 03/01/22 01:34 105/59 94 L Intake and Output 03/01/22 03/01/22 03/01/22 06:59 14:59 22:59 Intake Total 1440 Balance 1440 Intake: Oral 1440 Other: Voiding Method Toilet # Voids 1 3 General: well nourished, well developed, NAD. Vitals reviewed Eyes: PERRL, EOMI, conjunctiva normal HENT: normocephalic, mucus membranes moist Neck: supple, no JVD Lungs: normal respiratory effort, no wheezes or rales CV: Regular rate and rhythm, no murmur. Peripheral pulses 2+ Abdomen: soft, nondistended, no organomegaly Lymph: no cervical or axillary LAD Skin: warm and dry. Neuro: A&Ox3, normal mood and affect Results CBC & Chem 7: 02/28/22 04:14 02/28/22 04:14 Labs: Abnormal Lab Results - Last 24 Hours (Table) 02/28/22 02/28/22 03/01/22 Range/Units 04:14 23:49 07:35 POC Glucose (mg/dL) 223 H 155 H (70-110) mg/dL Procalcitonin 0.14 H (0.02-0.09) ng/mL 03/01/22 03/01/22 03/01/22 Range/Units 12:38 17:08 20:08 POC Glucose (mg/dL) 353 H 231 H 144 H (70-110) mg/dL Procalcitonin (0.02-0.09) ng/mL Thrombosis Risk Factor Assmnt - Choose All That Apply Any of the Below Risk Factors Present?: Yes Each Factor Represents 1 point: Age 41-60 years Other Risk Factors: No Other congenital or acquired thrombophilia - If yes, enter type in comment: No Thrombosis Risk Factor Assessment Total Risk Factor Score: 1 Thrombosis Risk Factor Assessment Level: Low Risk Assessment and Plan Plan: Acute hypoxic respiratory failure. Admit, supplemental O2 as required. Start IV steroids, duonebs Influenza A. Start tamiflu T2DM. Accucheck and sliding scale HTN. Continue lisinopril
[2022-03-01] MEDS: OSELTAMIVIR 75 MG CAP PO SCH (23:54)
[2022-03-02] MEDS: methylPREDNISolone SOD SUCCI 125 MG/2 ML VIAL IV SCH ×2 (06:05→13:11)
[2022-03-02 07:32] LABS: Glucose,Whole Blood 116 mg/dL (70-110)
[2022-03-02 07:50] VITALS: BP 117/62; TEMP 97.5
--- NOTE | 2022-03-02 09:04 | P.DS ---
Providers Date of admission: 02/28/22 10:20 Expected date of discharge: 03/02/22 Attending physician: King Shen MD Primary care physician: Tracy Mayer [facility] Course: Marisol Woo is a 61 yo F with PMH of T2DM, HTN, HLD who presented to the ED with 3 day history of increasing shortness of breath, malaise. She states that over the weekend she began to feel sick and developed a productive cough, this progressed and she began to feel short of breath so came to the hospital. On presentation pt tachycardic and hypoxic, WBC 16.7k, procalcitonin 0.16, flu A positive. CXR with prominent interstitial markings. Pt admitted to medicine, started on tamiflu and IV steroids. She was given supplemental O2 for her hypoxia. Pt with good response to treatment and denies further chest tightness, shortness of breath, fever, chills. She is discharged in stable condition with a guarded prognosis and recommended to complete tamiflu and prednisone taper and follow up with her PCP in 1 week. Patient Condition at Discharge: Stable Plan - Discharge Summary Discharge Rx Participant: No New Discharge Prescriptions: New predniSONE 0 mg PO DIRECTED #30 tab Oseltamivir [Tamiflu] 75 mg PO Q12HR #8 cap Continue lisinopriL [Prinivil] 10 mg PO DAILY Insulin Degludec [Tresiba Flextouch U-200 Pen] 12 units SQ DAILY Atorvastatin [Lipitor] 20 mg PO DAILY Discharge Medication List Atorvastatin [Lipitor] 20 mg PO DAILY 02/28/22 [History] Insulin Degludec [Tresiba Flextouch U-200 Pen] 12 units SQ DAILY 02/28/22 [History] lisinopriL [Prinivil] 10 mg PO DAILY 02/28/22 [History] Oseltamivir [Tamiflu] 75 mg PO Q12HR #8 cap 03/02/22 [Rx] predniSONE 0 mg PO DIRECTED #30 tab 03/02/22 [Rx] Follow up Appointment(s)/Referral(s): Tracy Mayer DO [Primary Care Provider] - 1-2 days Discharge Disposition: HOME SELF-CARE
[2022-03-02] MEDS: INSULIN ASPART (NovoLOG) 100 UNIT/ML VIAL SQ SCH ×2 (09:32→13:10)
[2022-03-02] MEDS: OSELTAMIVIR 75 MG CAP PO SCH (09:37)
[2022-03-02] MEDS: PANTOPRAZOLE 40 MG/10 ML VIAL IV SCH (09:37)
[2022-03-02] MEDS: ATORVASTATIN 20 MG TAB PO SCH (09:37)
[2022-03-02] MEDS: lisinopriL 10 MG TAB PO SCH (09:37)
[2022-03-02 10:20] VITALS: PULSE 90
[2022-03-02 11:16] LABS: Glucose,Whole Blood 335 mg/dL (70-110)
[2022-03-03] MEDS ORDERED: PANTOPRAZOLE 40 MG TABLET PO SCH (07:30)
== END 2022-03-02 15:08 | disposition home or self-care (01) | DRG 193 ==
LOC: EC 03:24 → 5NMEDONC 10:20
PROVIDERS: ADMIT Family Medicine; ATTEND Family Medicine
DX: J10.00 Influenza due to other identified influenza virus with unspecified type of pneumonia (principal); J96.01 Acute respiratory failure with hypoxia; I10 Essential (primary) hypertension; E11.9 Type 2 diabetes mellitus without complications; F17.210 Nicotine dependence, cigarettes, uncomplicated; E78.5 Hyperlipidemia, unspecified; Z20.822 Contact with and (suspected) exposure to COVID-19; Z79.899 Other long term (current) drug therapy; Z79.4 Long term (current) use of insulin; Z88.0 Allergy status to penicillin; Z88.2 Allergy status to sulfonamides; Z28.310 Unvaccinated for COVID-19
CPT/HCPCS: 36415; 71046; 80053; 83605; 84145; 84484; 85025; 87636; 93005; 94640; 94760; 96374; 96375; 99285

== ENCOUNTER 2022-07-22 10:37 | Emergency (ER) | payer BC ==
[2022-07-22 10:50] VITALS: BP 103/62; PULSE 103; RESP 18; TEMP 98.4
[2022-07-22] MEDS ORDERED: AZITHROMYCIN 500 MG TAB PO STA (11:18)
--- NOTE | 2022-07-22 11:19 | ED ---
ENT HPI - General Chief complaint: ENT Stated complaint: R ear pain/swelling Time Seen by Provider: 07/22/22 10:58 Source: patient, RN notes reviewed Mode of arrival: ambulatory Limitations: no limitations - History of Present Illness Initial comments: 62-year-old female presents emergency Department chief complaint of right ear infection. Patient states she's been having pain last couple days. Patient states that she has recurrent issue years and she's been having infection. Patient states it just started but states has progressive cellulitis of bouts her urine the past she denies any drainage no reported fever. - Related Data Home Medications Medication Instructions Recorded Confirmed Atorvastatin [Lipitor] 20 mg PO DAILY 02/28/22 02/28/22 Insulin Degludec [Tresiba 12 units SQ DAILY 02/28/22 02/28/22 Flextouch U-200 Pen] lisinopriL [Prinivil] 10 mg PO DAILY 02/28/22 02/28/22 Previous Rx's Medication Instructions Recorded Oseltamivir [Tamiflu] 75 mg PO Q12HR #8 cap 03/02/22 predniSONE 0 mg PO DIRECTED #30 tab 03/02/22 Azithromycin [Zithromax Z Pack] 0 tab PO DIRECTED #6 tab 07/22/22 Allergies Allergy/AdvReac Type Severity Reaction Status Date / Time Penicillins Allergy Anaphylaxis Verified 07/22/22 10:49 & Hives Sulfa (Sulfonamide Allergy Anaphylaxis Verified 07/22/22 10:49 Antibiotics) & Hives Review of Systems ROS Statement: Those systems with pertinent positive or pertinent negative responses have been documented in the HPI. ROS Other: All systems not noted in ROS Statement are negative. Past Medical History Past Medical History: Diabetes Mellitus, Hyperlipidemia, Hypertension History of Any Multi-Drug Resistant Organisms: None Reported Past Surgical History: Hysterectomy Past Anesthesia/Blood Transfusion Reactions: No Reported Reaction Past Psychological History: No Psychological Hx Reported Smoking Status: Current every day smoker Past Alcohol Use History: Rare Past Drug Use History: None Reported General Exam Limitations: no limitations General appearance: alert, in no apparent distress Head exam: Present: atraumatic, normocephalic, normal inspection Eye exam: Present: normal appearance, PERRL, EOMI. Absent: scleral icterus, conjunctival injection, periorbital swelling ENT exam: Present: normal oropharynx, mucous membranes moist, normal external ear exam. Absent: TM's normal bilaterally (Right TM erythematous, mild fluid noted no canal changes or mastoid tenderness) Respiratory exam: Present: normal lung sounds bilaterally. Absent: respiratory distress, wheezes, rales, rhonchi, stridor Cardiovascular Exam: Present: regular rate, normal rhythm, normal heart sounds. Absent: systolic murmur, diastolic murmur, rubs, gallop, clicks Course Vital Signs 07/22/22 10:46 Temperature 98.4 F Pulse Rate 103 H Respiratory 18 Rate Blood Pressure 103/62 O2 Sat by Pulse 96 Oximetry Medical Decision Making - Medical Decision Making Was pt. sent in by a medical professional or institution ([facility], [facility], urgent care, hospital, or prison...) When possible be specific @ -No Did you speak to anyone other than the patient for history (EMS, parent, family, police, friend...)? What history was obtained from this source @ -No Did you review nursing and triage notes (agree or disagree)? Why? @ -I reviewed and agree with nursing and triage notes Were old charts reviewed (outside hosp., previous admission, EMS record, old EKG, old radiological studies, urgent care reports/EKG's, prison records)? Report findings @ -No old charts were reviewed Differential Diagnosis (chest pain, altered mental status, abdominal pain women, abdominal pain men, vaginal bleeding, weakness, fever, dyspnea, syncope, headac he, dizziness, GI bleed, back pain, seizure, CVA, palpatations, mental health, musculoskeletal)? @ -Otitis media, otitis externa, eustachian tube dysfunction, mastoiditis EKG interpreted by me (3pts min.). @ -None X-rays interpreted by me (1pt min.). @ -None done CT interpreted by me (1pt min.). @ -None done U/S interpreted by me (1pt. min.). @ -None done What testing was considered but not performed or refused? (CT, X-rays, U/S, labs)? Why? @ -None What meds were considered but not given or refused? Why? @ -None Did you discuss the management of the patient with other professionals (professionals i.e. [facility], [facility], lab, RT, psych nurse, social media community manager, drapery operator, teacher, data officer, hospice case manager)? Give summary @ -No Was smoking cessation discussed for >3mins.? @ -No Was critical care preformed (if so, how long)? @ -No Were there social determinants of health that impacted care today? How? (Homelessness, low income, unemployed, alcoholism, drug addiction, transportation, low edu. Level, literacy, decrease access to med. care, detention, rehab)? @ -No Was there de-escalation of care discussed even if they declined (Discuss DNR or withdrawal of care, Hospice)? DNR status @ -No What co-morbidities impacted this encounter? (DM, HTN, Smoking, COPD, CAD, Cancer, CVA, ARF, Chemo, Hep., AIDS, mental health diagnosis, sleep apnea, morb id obesity)? @ -None Was patient admitted / discharged? Hospital course, mention meds given and route, prescriptions, significant lab abnormalities, going to OR and other pertinent info. @ -Discharge patient has noted otitis media patient was started on azithromycin as she has penicillin ALLERGY. Patient discharged in stable condition with close follow-up return parameters were discussed. Undiagnosed new problem with uncertain prognosis? @ -No Drug Therapy requiring intensive monitoring for toxicity (Heparin, Nitro, Insulin, Cardizem)? @ -No Were any procedures done? @ -No Diagnosis/symptom? @ -Otitis media Acute, or Chronic, or Acute on Chronic? @ -Acute Uncomplicated (without systemic symptoms) or Complicated (systemic symptoms)? @ -Uncomplicated Side effects of treatment? @ -No Exacerbation, Progression, or Severe Exacerbation? @ -No Poses a threat to life or bodily function? How? (Chest pain, [place], [place], pneumonia, PE, COPD, DKA, ARF, appy, cholecystitis, CVA, Diverticulitis, Homicidal, Suicidal, threat to staff... and all critical care pts) @ -No Disposition Clinical Impression: Otitis media Disposition: HOME SELF-CARE Condition: Stable Instructions (If sedation given, give patient instructions): Earache (ED) Additional Instructions: Please return to the Emergency Department if symptoms worsen or any other concerns. Prescriptions: Azithromycin [Zithromax Z Pack] 0 tab PO DIRECTED #6 tab Is patient prescribed a controlled substance at d/c from ED?: No Referrals: King Shen MD [Primary Care Provider] - 1-2 days Time of Disposition: 11:19
== END 2022-07-22 11:29 | disposition home or self-care (01) ==
LOC: EC 10:37
DX: H66.91 Otitis media, unspecified, right ear (principal); E11.9 Type 2 diabetes mellitus without complications; I10 Essential (primary) hypertension; E78.5 Hyperlipidemia, unspecified; F17.200 Nicotine dependence, unspecified, uncomplicated; Z79.4 Long term (current) use of insulin; Z79.899 Other long term (current) drug therapy; Z88.0 Allergy status to penicillin; Z88.2 Allergy status to sulfonamides
CPT/HCPCS: 99282

== ENCOUNTER 2023-02-02 03:36 | Emergency (ER) | payer BC ==
[2023-02-02 04:57] VITALS: BP 135/71; PULSE 99; RESP 20; TEMP 97.9
--- NOTE | 2023-02-02 05:00 | ED ---
General Adult HPI - General Chief complaint: Recheck/Abnormal Lab/Rx Stated complaint: Constipation Time Seen by Provider: 02/02/23 04:26 Source: patient Mode of arrival: ambulatory Limitations: no limitations - History of Present Illness Initial comments: Dictation was produced using [employer] dictation software. please excuse any grammatical, word or spelling errors. Chief Complaint: 62-year-old female with anal pain History of Present Illness: Patient is a 62-year-old female she has past medical history diabetes dyslipidemia and hypertension. She's been battling a hemorrhoid for the last 10 days. States that she is having persistent pain when usually her hemorrhoid pain is resolved after only a few days. Patient had some constipation last week took some laxatives and all of a sudden developed a hemorrhoid. She's been doing [id number] measures and states that her symptoms are improving. She is here because her symptoms usually last this long. The ROS documented in this emergency department record has been reviewed and confirmed by me. Those systems with pertinent positive or negative responses have been documented in the HPI. All other systems are other negative and/or noncontributory. - Related Data Home Medications Medication Instructions Recorded Confirmed Atorvastatin [Lipitor] 20 mg PO DAILY 02/28/22 02/28/22 Insulin Degludec [Tresiba 12 units SQ DAILY 02/28/22 02/28/22 Flextouch U-200 Pen] lisinopriL [Prinivil] 10 mg PO DAILY 02/28/22 02/28/22 Previous Rx's Medication Instructions Recorded Oseltamivir [Tamiflu] 75 mg PO Q12HR #8 cap 03/02/22 predniSONE 0 mg PO DIRECTED #30 tab 03/02/22 Azithromycin [Zithromax Z Pack] 0 tab PO DIRECTED #6 tab 07/22/22 Lidocaine [Lidocaine Rectal Cream 1 applic TOPICAL BID PRN #30 gram 02/02/23 5%] Allergies Allergy/AdvReac Type Severity Reaction Status Date / Time Penicillins Allergy Anaphylaxis Verified 02/02/23 04:12 & Hives Sulfa (Sulfonamide Allergy Anaphylaxis Verified 02/02/23 04:12 Antibiotics) & Hives steroids Allergy Diarrhea Uncoded 02/02/23 04:12 Review of Systems ROS Statement: Those systems with pertinent positive or pertinent negative responses have been documented in the HPI. ROS Other: All systems not noted in ROS Statement are negative. Past Medical History Past Medical History: Diabetes Mellitus, Hyperlipidemia, Hypertension History of Any Multi-Drug Resistant Organisms: None Reported Past Surgical History: Hysterectomy Past Anesthesia/Blood Transfusion Reactions: No Reported Reaction Past Psychological History: No Psychological Hx Reported Smoking Status: Current every day smoker Past Alcohol Use History: Rare Past Drug Use History: None Reported General Exam - General Exam Comments Initial Comments: PHYSICAL EXAM: General Impression: Alert and oriented x3, not in acute distress HEENT: Normocephalic atraumatic, extra-ocular movements intact, pupils equal and reactive to light bilaterally, mucous membranes moist. Cardiovascular: Heart regular rate and rhythm Chest: Able to complete full sentences, no retractions, no tachypnea Abdomen: abdomen soft, non-tender, non-distended, no organomegaly Musculoskeletal: Pulses present and equal in all extremities, no peripheral edema Motor: no focal deficits noted Neurological: CN II-XII grossly intact, no focal motor or sensory deficits noted Skin: Intact with no visualized rashes Psych: Normal affect and mood Rectal exam: Hemorrhoid at the 4 o'clock position nonthrombosed Limitations: no limitations Course Vital Signs 02/02/23 04:09 Temperature 97.9 F Pulse Rate 99 Respiratory 20 Rate Blood Pressure 135/71 O2 Sat by Pulse 97 Oximetry Medical Decision Making - Medical Decision Making Was pt. sent in by a medical professional or institution (JEFF Cruz, FOOD SERVICE KITCHEN SUPERVISOR, urgent care, hospital, or [facility]...) When possible be specific @ -No Did you speak to anyone other than the patient for history (EMS, parent, family, police, friend...)? What history was obtained from this source @ -No Did you review nursing and triage notes (agree or disagree)? Why? @ -I reviewed and agree with nursing and triage notes Were old charts reviewed (outside hosp., previous admission, EMS record, old EKG, old radiological studies, urgent care reports/EKG's, [facility] records)? Report findings @ -No old charts were reviewed Differential Diagnosis (chest pain, altered mental status, abdominal pain women, abdominal pain men, vaginal bleeding, musculoskeletal, weakness, fever, dyspnea, syncope, headache, dizziness, GI bleed, back pain, seizure, CVA, palpatations, mental health)? @ -not applicable EKG interpreted by me (3pts min.). @ -None done X-rays interpreted by me (1pt min.). @ -None done CT interpreted by me (1pt min.). @ -None done U/S interpreted by me (1pt. min.). @ -None done What testing was considered but not performed or refused? (CT, X-rays, U/S, labs)? Why? @ -None What meds were considered but not given or refused? Why? @ -None Did you discuss the management of the patient with other professionals (professionals i.e. , PA, FOOD SERVICE KITCHEN SUPERVISOR, lab, RT, psych nurse, social work program coordinator, channel development manager, teacher, surveillance sensor officer, director of casework services)? Give summary @ -No Was smoking cessation discussed for >3mins.? @ -No Was critical care preformed (if so, how long)? @ -No Were there social determinants of health that impacted care today? How? (Homelessness, low income, unemployed, alcoholism, drug addiction, transportation, low edu. Level, literacy, decrease access to med. care, [facility], rehab)? @ -No Was there de-escalation of care discussed even if they declined (Discuss DNR or withdrawal of care, Hospice)? DNR status @ -No What co-morbidities impacted this encounter? (DM, HTN, Smoking, COPD, CAD, Cancer, CVA, ARF, Chemo, Hep., AIDS, mental health diagnosis, sleep apnea, morbid obesity)? @ -None Was patient admitted / discharged? Hospital course, mention meds given and route, prescriptions, significant lab abnormalities, going to OR and other pertinent info. @ -62-year-old female presents emergency Department with persistent anal pain. Patient has a nonthrombosed hemorrhoid. Patient counseled on qkzv-ihw-dhnrchs measures for hemorrhoid treatment. She is not a candidate for MRI iridectomy. Patient given prescription for Anusol for symptom control. Undiagnosed new problem with uncertain prognosis? @ -No Drug Therapy requiring intensive monitoring for toxicity (Heparin, Nitro, Insulin, Cardizem)? @ -No Were any procedures done? @ -No Diagnosis/symptom? Acute, or Chronic, or Acute on Chronic? Uncomplicated (without systemic symptoms) or Complicated (systemic symptoms)? @ -hemorrhoid Side effects of treatment? @ -No Exacerbation, Progression, or Severe Exacerbation? @ -No Poses a threat to life or bodily function? How? (Chest pain, USA, [place], pneumonia, PE, COPD, DKA, ARF, appy, cholecystitis, CVA, Diverticulitis, Homicidal, Suicidal, threat to staff... and all critical care pts) @ -No Disposition Clinical Impression: Hemorrhoid Disposition: HOME SELF-CARE Condition: Good Instructions (If sedation given, give patient instructions): Hemorrhoids (ED) Prescriptions: Lidocaine [Lidocaine Rectal Cream 5%] 1 applic TOPICAL BID PRN #30 gram PRN Reason: hemorrhoid pain Is patient prescribed a controlled substance at d/c from ED?: No Referrals: King Shen MD [Primary Care Provider] - 1-2 days Time of Disposition: 04:58
== END 2023-02-02 05:22 | disposition home or self-care (01) ==
LOC: EC 03:36
DX: K64.9 Unspecified hemorrhoids (principal); E11.9 Type 2 diabetes mellitus without complications; E78.5 Hyperlipidemia, unspecified; I10 Essential (primary) hypertension; F17.200 Nicotine dependence, unspecified, uncomplicated; Z79.84 Long term (current) use of oral hypoglycemic drugs; Z79.899 Other long term (current) drug therapy; Z79.4 Long term (current) use of insulin; Z88.0 Allergy status to penicillin; Z88.2 Allergy status to sulfonamides; Z88.8 Allergy status to other drugs, medicaments and biological substances
CPT/HCPCS: 99283

== ENCOUNTER 2023-02-06 11:50 | Inpatient (IN) | payer BC ==
[2023-02-06] MEDS ORDERED: SODIUM CHLORIDE 0.9% 1,000 ML IV STA (13:04)
[2023-02-06] MEDS ORDERED: ONDANSETRON 4 MG/2 ML VIAL IVP STA (13:04)
--- NOTE | 2023-02-06 13:07 | ED ---
General Adult HPI - General Chief complaint: Abdominal Pain Stated complaint: Hemorrhoids Time Seen by Provider: 02/06/23 12:15 Source: patient Mode of arrival: ambulatory Limitations: no limitations - History of Present Illness Initial comments: Dictation was produced using [employer] dictation software. please excuse any grammatical, word or spelling errors. Chief Complaint: 62-year-old female seen in the emergency department 4 days ago presents to the ER for persistent symptoms History of Present Illness: She is a 62-year-old female presents emergency department for persistent abdominal and rectal symptoms. Was seen in the [facility] 4 days ago for chief complaint of symptomatic hemorrhoid. She was evaluated by myself. States that she's been doing the symptomatic treatment at home but does not feel like she is getting any better. States that she feels like the pain is now moving into her upper abdomen. She states she feels really weak and having difficulties perform her activities of daily living. Denies any fevers. He said her bowel movements have been slimy and yellow. The ROS documented in this emergency department record has been reviewed and confirmed by me. Those systems with pertinent positive or negative responses have been documented in the HPI. All other systems are other negative and/or noncontributory. - Related Data Home Medications Medication Instructions Recorded Confirmed Atorvastatin [Lipitor] 20 mg PO DAILY 02/28/22 02/06/23 Insulin Degludec [Tresiba 12 units SQ DAILY 02/28/22 02/06/23 Flextouch U-200 Pen] lisinopriL [Prinivil] 10 mg PO DAILY 02/28/22 02/06/23 Albuterol Sulfate [Albuterol 1 - 2 puff PO RT-Q6H PRN 02/06/23 02/06/23 Sulfate Hfa] Previous Rx's Medication Instructions Recorded HYDROcodone/APAP 7.5-325MG [[place] 1 each PO Q6HR PRN 3 Days #12 tab 02/10/23 7.5-325] fentaNYL 25MCG/HR PATCH [Duragesic 1 patch TRANSDERM Q72H 3 Days #1 02/10/23 25MCG/HR] patch Allergies Allergy/AdvReac Type Severity Reaction Status Date / Time Penicillins Allergy Anaphylaxis Verified 02/06/23 14:20 & Hives Sulfa (Sulfonamide Allergy Anaphylaxis Verified 02/06/23 14:20 Antibiotics) & Hives steroids Allergy Diarrhea Uncoded 02/06/23 14:20 Review of Systems ROS Statement: Those systems with pertinent positive or pertinent negative responses have been documented in the HPI. ROS Other: All systems not noted in ROS Statement are negative. Past Medical History Past Medical History: Diabetes Mellitus, Hyperlipidemia, Hypertension History of Any Multi-Drug Resistant Organisms: None Reported Past Surgical History: Hysterectomy Past Anesthesia/Blood Transfusion Reactions: No Reported Reaction Past Psychological History: No Psychological Hx Reported Smoking Status: Current every day smoker Past Alcohol Use History: None Reported Past Drug Use History: None Reported - Past Family History Mother Family Medical History: CVA/TIA Father Family Medical History: Cancer General Exam - General Exam Comments Initial Comments: PHYSICAL EXAM: General Impression: Alert and oriented x3, not in acute distress HEENT: Normocephalic atraumatic, extra-ocular movements intact, pupils equal and reactive to light bilaterally, dry mucous membranes Cardiovascular: Heart regular rate and rhythm Chest: Able to complete full sentences, no retractions, no tachypnea Abdomen: abdomen soft, non-tender, non-distended, no organomegaly Musculoskeletal: Pulses present and equal in all extremities, no peripheral edema Motor: no focal deficits noted Neurological: CN II-XII grossly intact, no focal motor or sensory deficits noted Skin: Intact with no visualized rashes Psych: Normal affect and mood Limitations: no limitations Course Vital Signs 02/06/23 02/06/23 02/06/23 11:59 13:00 13:30 Temperature 98.1 F Pulse Rate 113 H 94 81 Respiratory 18 22 16 Rate Blood Pressure 119/74 128/72 114/65 O2 Sat by Pulse 98 95 95 Oximetry 02/06/23 02/06/23 02/06/23 14:00 14:30 15:00 Temperature Pulse Rate 79 78 71 Respiratory 20 20 16 Rate Blood Pressure 134/67 127/85 117/66 O2 Sat by Pulse 96 96 96 Oximetry 02/06/23 02/06/23 02/06/23 15:30 16:00 16:30 Temperature Pulse Rate 70 72 70 Respiratory 20 22 16 Rate Blood Pressure 113/60 102/50 126/64 O2 Sat by Pulse 99 96 96 Oximetry EKG Findings - EKG Comments: EKG Findings:: My EKG interpretation: Ventricular rate 89, sinus rhythm,. 157, QRS 90, QTC 387. No NV prolongation, no QTC prolongation, no ST or T-wave changes noted. . Overall, this EKG is unremarkable Medical Decision Making - Medical Decision Making Was pt. sent in by a medical professional or institution (JEFF Cruz, COM WRITER, urgent care, hospital, or jail...) When possible be specific @ -No Did you speak to anyone other than the patient for history (EMS, parent, family, police, friend...)? What history was obtained from this source @ -No Did you review nursing and triage notes (agree or disagree)? Why? @ -I reviewed and agree with nursing and triage notes Were old charts reviewed (outside hosp., previous admission, EMS record, old EKG, old radiological studies, urgent care reports/EKG's, jail records)? Report findings @ -No old charts were reviewed Differential Diagnosis (chest pain, altered mental status, abdominal pain women, abdominal pain men, vaginal bleeding, musculoskeletal, weakness, fever, dyspnea, syncope, headache, dizziness, GI bleed, back pain, seizure, CVA, palpatations, mental health)? @ -Differential Abdominal Pain Women: Appendicitis, Cholecystitis, diverticulosis, ischemic bowel, pancreatitis, hepatitis, UTI, gastroenteritis, AAA, incarcerated hernia, bowel obstruction, constipation, inflammatory bowel, hepatitis, peptic ulcer disease, splenic i nfarction, perforated viscus, vulvitis, ovarian torsion, PID, kidney stone, placenta abruption, this is not meant to be an all-inclusive list EKG interpreted by me (3pts min.). @ -See above X-rays interpreted by me (1pt min.). @ -None done CT interpreted by me (1pt min.). @ -CT Scan of the abdomen and pelvis shows multiple lesions to the liver U/S interpreted by me (1pt. min.). @ -None done What testing was considered but not performed or refused? (CT, X-rays, U/S, labs)? Why? @ -None What meds were considered but not given or refused? Why? @ -None Did you discuss the management of the patient with other professionals (professionals i.e. JEFF Cruz, COM WRITER, lab, RT, psych nurse, drug abuse social worker, senior medical director, teacher, ammunition officer, showcase maker)? Give summary @ -Case discussed with hospitalist for admission Was smoking cessation discussed for >3mins.? @ -No Was critical care preformed (if so, how long)? @ -No Were there social determinants of health that impacted care today? How? (Homelessness, low income, unemployed, alcoholism, drug addiction, transportation, low edu. Level, literacy, decrease access to med. care, half-way, rehab)? @ -No Was there de-escalation of care discussed even if they declined (Discuss DNR or withdrawal of care, Hospice)? DNR status @ -No What co-morbidities impacted this encounter? (DM, HTN, Smoking, COPD, CAD, Cancer, CVA, ARF, Chemo, Hep., AIDS, mental health diagnosis, sleep apnea, morbid obesity)? @ -None Was patient admitted / discharged? Hospital course, mention meds given and route, prescriptions, significant lab abnormalities, going to OR and other pertinent info. @ -62 Year-old female presents emergency department for persistent rectal pain. Vital signs upon arrival are within acceptable limits. Laboratory evaluation obtained. Leukocytosis of 13.5. Metabolic panel within acceptable limits. Patient does have elevated liver enzymes. CT imaging study shows multiple lesions to the liver. Final radiology read shows liver metastatic disease with abnormal thickening at the rectum. Patient be admitted for new suspicious neoplastic process Undiagnosed new problem with uncertain prognosis? @ -No Drug Therapy requiring intensive monitoring for toxicity (Heparin, Nitro, Insulin, Cardizem)? @ -No Were any procedures done? @ -No Diagnosis/symptom? Acute, or Chronic, or Acute on Chronic? Uncomplicated (without systemic symptoms) or Complicated (systemic symptoms)? @ -Rectal pain, failed outpatient treatment Side effects of treatment? @ -No Exacerbation, Progression, or Severe Exacerbation? @ -No Poses a threat to life or bodily function? How? (Chest pain, [place], [place], pneumonia, PE, COPD, DKA, ARF, appy, cholecystitis, CVA, Diverticulitis, Homicidal, Suicidal, threat to staff... and all critical care pts) @ -yes - Lab Data Result diagrams: 02/07/23 11:56 02/07/23 11:56 Lab Results 02/06/23 02/06/23 02/06/23 Range/Units 12:37 12:37 13:44 WBC 17.5 H (3.8-10.6) k/uL RBC 4.93 (3.80-5.40) m/uL Hgb 15.7 (11.4-16.0) gm/dL Hct 46.5 H (34.0-46.0) % MCV 94.4 (80.0-100.0) fL MCH 31.8 (25.0-35.0) pg MCHC 33.7 (31.0-37.0) g/dL RDW 12.4 (11.5-15.5) % Plt Count 219 (150-450) k/uL MPV 9.1 Absolute Nucleated RBC % Neutrophils % 81 % Lymphocytes % 12 % Monocytes % 5 % Eosinophils % 1 % Basophils % 0 % Neutrophils # 14.2 H (1.3-7.7) k/uL Lymphocytes # 2.1 (1.0-4.8) k/uL Monocytes # 0.8 (0-1.0) k/uL Eosinophils # 0.1 (0-0.7) k/uL Basophils # 0.1 (0-0.2) k/uL NRBC/100 WBC Diff (0.00-0.01) X 10*3/uL Sodium 136 L (137-145) mmol/L Potassium 4.6 (3.5-5.1) mmol/L Chloride 102 (98-107) mmol/L Carbon Dioxide 26 (22-30) mmol/L Anion Gap 8 mmol/L BUN 19 H (7-17) mg/dL Creatinine 0.59 (0.52-1.04) mg/dL Est GFR (CKD-EPI) (>=60) Est GFR (CKD-EPI)AfAm >90 (>60 ml/min/1.73 sqM) Est GFR (CKD-EPI)NonAf >90 (>60 ml/min/1.73 sqM) BUN/Creatinine Ratio (12.00-20.00) Ratio Glucose 135 H (74-99) mg/dL POC Glucose (mg/dL) (70-110) mg/dL POC Glu Gas Line Servicer ID Estimated Ave Glu mg/dL 163 mg/dL Hemoglobin A1c 7.3 H (<=6.0) % Calcium 8.9 (8.4-10.2) mg/dL Total Bilirubin 0.7 (0.2-1.3) mg/dL AST 88 H (14-36) U/L ALT 103 H (4-34) U/L Alkaline Phosphatase 289 H (38-126) U/L Total Protein 6.2 L (6.3-8.2) g/dL Albumin 3.7 (3.5-5.0) g/dL Globulin (1.6-3.3) g/dL Albumin/Globulin Ratio (1.60-3.17) Ratio Lipase 68 (23-300) U/L Tumor Marker AFP (0.00-7.90) ng/mL Carcinoembryonic Ag (0.0-4.9) ng/mL Hepatitis A IgM Ab Hep Bs Antigen Hep B Core IgM Ab Hep C IgG Ab 02/06/23 02/07/23 02/07/23 Range/Units 20:46 07:12 11:36 WBC (3.8-10.6) k/uL RBC (3.80-5.40) m/uL Hgb (11.4-16.0) gm/dL Hct (34.0-46.0) % MCV (80.0-100.0) fL MCH (25.0-35.0) pg MCHC (31.0-37.0) g/dL RDW (11.5-15.5) % Plt Count (150-450) k/uL MPV Absolute Nucleated RBC % Neutrophils % % Lymphocytes % % Monocytes % % Eosinophils % % Basophils % % Neutrophils # (1.3-7.7) k/uL Lymphocytes # (1.0-4.8) k/uL Monocytes # (0-1.0) k/uL Eosinophils # (0-0.7) k/uL Basophils # (0-0.2) k/uL NRBC/100 WBC Diff (0.00-0.01) X 10*3/uL Sodium (137-145) mmol/L Potassium (3.5-5.1) mmol/L Chloride (98-107) mmol/L Carbon Dioxide (22-30) mmol/L Anion Gap mmol/L BUN (7-17) mg/dL Creatinine (0.52-1.04) mg/dL Est GFR (CKD-EPI) (>=60) Est GFR (CKD-EPI)AfAm (>60 ml/min/1.73 sqM) Est GFR (CKD-EPI)NonAf (>60 ml/min/1.73 sqM) BUN/Creatinine Ratio (12.00-20.00) Ratio Glucose (74-99) mg/dL POC Glucose (mg/dL) 192 H 117 H (70-110) mg/dL POC Glu Gas Line Servicer Darlin Cedillo [address] Glu mg/dL mg/dL Hemoglobin A1c (<=6.0) % Calcium (8.4-10.2) mg/dL Total Bilirubin (0.2-1.3) mg/dL AST (14-36) U/L ALT (4-34) U/L Alkaline Phosphatase (38-126) U/L Total Protein (6.3-8.2) g/dL Albumin (3.5-5.0) g/dL Globulin (1.6-3.3) g/dL Albumin/Globulin Ratio (1.60-3.17) Ratio Lipase (23-300) U/L Tumor Marker AFP (0.00-7.90) ng/mL Carcinoembryonic Ag 8.8 H (0.0-4.9) ng/mL Hepatitis A IgM Ab Hep Bs Antigen Hep B Core IgM Ab Hep C IgG Ab 02/07/23 02/07/23 02/07/23 Range/Units 11:44 11:56 11:56 WBC 14.47 H (3.8-10.6) k/uL RBC 3.92 L (3.80-5.40) m/uL Hgb 12.0 (11.4-16.0) gm/dL Hct 37.4 (34.0-46.0) % MCV 95.4 (80.0-100.0) fL MCH 30.6 (25.0-35.0) pg MCHC 32.1 (31.0-37.0) g/dL RDW 12.7 (11.5-15.5) % Plt Count 233 (150-450) k/uL MPV 10.8 Absolute Nucleated RBC 0 % Neutrophils % % Lymphocytes % % Monocytes % % Eosinophils % % Basophils % % Neutrophils # (1.3-7.7) k/uL Lymphocytes # (1.0-4.8) k/uL Monocytes # (0-1.0) k/uL Eosinophils # (0-0.7) k/uL Basophils # (0-0.2) k/uL NRBC/100 WBC Diff 0 (0.00-0.01) X 10*3/uL Sodium 137 (137-145) mmol/L Potassium 4.5 (3.5-5.1) mmol/L Chloride 101 (98-107) mmol/L Carbon Dioxide 25.1 (22-30) mmol/L Anion Gap 10.90 mmol/L BUN 19.5 (7-17) mg/dL Creatinine 0.7 (0.52-1.04) mg/dL Est GFR (CKD-EPI) 99 (>=60) Est GFR (CKD-EPI)AfAm (>60 ml/min/1.73 sqM) Est GFR (CKD-EPI)NonAf (>60 ml/min/1.73 sqM) BUN/Creatinine Ratio 27.86 H (12.00-20.00) Ratio Glucose 143 H (74-99) mg/dL POC Glucose (mg/dL) 142 H (70-110) mg/dL POC Glu Gas Line Servicer ID Emmanuelle Santamaria [address] Glu mg/dL mg/dL Hemoglobin A1c (<=6.0) % Calcium 9.3 (8.4-10.2) mg/dL Total Bilirubin 0.4 (0.2-1.3) mg/dL AST 67 H (14-36) U/L ALT 87 H (4-34) U/L Alkaline Phosphatase 318 H (38-126) U/L Total Protein 5.8 L (6.3-8.2) g/dL Albumin 3.8 (3.5-5.0) g/dL Globulin 2.0 (1.6-3.3) g/dL Albumin/Globulin Ratio 1.90 (1.60-3.17) Ratio Lipase (23-300) U/L Tumor Marker AFP (0.00-7.90) ng/mL Carcinoembryonic Ag (0.0-4.9) ng/mL Hepatitis A IgM Ab Hep Bs Antigen Hep B Core IgM Ab Hep C IgG Ab 02/07/23 02/07/23 02/07/23 Range/Units 11:56 17:16 20:45 WBC (3.8-10.6) k/uL RBC (3.80-5.40) m/uL Hgb (11.4-16.0) gm/dL Hct (34.0-46.0) % MCV (80.0-100.0) fL MCH (25.0-35.0) pg MCHC (31.0-37.0) g/dL RDW (11.5-15.5) % Plt Count (150-450) k/uL MPV Absolute Nucleated RBC % Neutrophils % % Lymphocytes % % Monocytes % % Eosinophils % % Basophils % % Neutrophils # (1.3-7.7) k/uL Lymphocytes # (1.0-4.8) k/uL Monocytes # (0-1.0) k/uL Eosinophils # (0-0.7) k/uL Basophils # (0-0.2) k/uL NRBC/100 WBC Diff (0.00-0.01) X 10*3/uL Sodium (137-145) mmol/L Potassium (3.5-5.1) mmol/L Chloride (98-107) mmol/L Carbon Dioxide (22-30) mmol/L Anion Gap mmol/L BUN (7-17) mg/dL Creatinine (0.52-1.04) mg/dL Est GFR (CKD-EPI) (>=60) Est GFR (CKD-EPI)AfAm (>60 ml/min/1.73 sqM) Est GFR (CKD-EPI)NonAf (>60 ml/min/1.73 sqM) BUN/Creatinine Ratio (12.00-20.00) Ratio Glucose (74-99) mg/dL POC Glucose (mg/dL) 116 H 125 H (70-110) mg/dL POC Glu Gas Line Servicer ID Emmanuelle Santamaria Bonnie [address] Glu mg/dL mg/dL Hemoglobin A1c (<=6.0) % Calcium (8.4-10.2) mg/dL Total Bilirubin (0.2-1.3) mg/dL AST (14-36) U/L ALT (4-34) U/L Alkaline Phosphatase (38-126) U/L Total Protein (6.3-8.2) g/dL Albumin (3.5-5.0) g/dL Globulin (1.6-3.3) g/dL Albumin/Globulin Ratio (1.60-3.17) Ratio Lipase (23-300) U/L Tumor Marker AFP <3.00 (0.00-7.90) ng/mL Carcinoembryonic Ag 9.2 H (0.0-4.9) ng/mL Hepatitis A IgM Ab Nonreactive Hep Bs Antigen Nonreactive Hep B Core IgM Ab Nonreactive Hep C IgG Ab Nonreactive 02/08/23 02/08/23 02/08/23 Range/Units 00:17 05:51 11:51 WBC (3.8-10.6) k/uL RBC (3.80-5.40) m/uL Hgb (11.4-16.0) gm/dL Hct (34.0-46.0) % MCV (80.0-100.0) fL MCH (25.0-35.0) pg MCHC (31.0-37.0) g/dL RDW (11.5-15.5) % Plt Count (150-450) k/uL MPV Absolute Nucleated RBC % Neutrophils % % Lymphocytes % % Monocytes % % Eosinophils % % Basophils % % Neutrophils # (1.3-7.7) k/uL Lymphocytes # (1.0-4.8) k/uL Monocytes # (0-1.0) k/uL Eosinophils # (0-0.7) k/uL Basophils # (0-0.2) k/uL NRBC/100 WBC Diff (0.00-0.01) X 10*3/uL Sodium (137-145) mmol/L Potassium (3.5-5.1) mmol/L Chloride (98-107) mmol/L Carbon Dioxide (22-30) mmol/L Anion Gap mmol/L BUN (7-17) mg/dL Creatinine (0.52-1.04) mg/dL Est GFR (CKD-EPI) (>=60) Est GFR (CKD-EPI)AfAm (>60 ml/min/1.73 sqM) Est GFR (CKD-EPI)NonAf (>60 ml/min/1.73 sqM) BUN/Creatinine Ratio (12.00-20.00) Ratio Glucose (74-99) mg/dL POC Glucose (mg/dL) 125 H 129 H 102 (70-110) mg/dL POC Glu Gas Line Servicer Layne Mcneal Bonnie [place], [address] Glu mg/dL mg/dL Hemoglobin A1c (<=6.0) % Calcium (8.4-10.2) mg/dL Total Bilirubin (0.2-1.3) mg/dL AST (14-36) U/L ALT (4-34) U/L Alkaline Phosphatase (38-126) U/L Total Protein (6.3-8.2) g/dL Albumin (3.5-5.0) g/dL Globulin (1.6-3.3) g/dL Albumin/Globulin Ratio (1.60-3.17) Ratio Lipase (23-300) U/L Tumor Marker AFP (0.00-7.90) ng/mL Carcinoembryonic Ag (0.0-4.9) ng/mL Hepatitis A IgM Ab Hep Bs Antigen Hep B Core IgM Ab Hep C IgG Ab Disposition Clinical Impression: Rectal pain Disposition: ADMITTED IP TO THIS HOSP Condition: Fair Decision Time: 14:58
[2023-02-06 13:09] LABS: Basophils # (A) 0.1 k/uL (0-0.2); Basophils % (A) 0 %; Eosinophils # (A) 0.1 k/uL (0-0.7); Eosinophils % (A) 1 %; HCT 46.5 % (34.0-46.0); HGB 15.7 gm/dL (11.4-16.0); Lymphocytes # (A) 2.1 k/uL (1.0-4.8); Lymphocytes % (A) 12 %; MCH 31.8 pg (25.0-35.0); MCHC 33.7 g/dL (31.0-37.0); MCV 94.4 fL (80.0-100.0); Mean Platelet Volume 9.1; Monocytes # (A) 0.8 k/uL (0-1.0); Monocytes % (A) 5 %; Neutrophils # (A) 14.2 k/uL (1.3-7.7); Neutrophils % (A) 81 %; Platelet Count 219 k/uL (150-450); RBC 4.93 m/uL (3.80-5.40); RDW 12.4 % (11.5-15.5); WBC 17.5 k/uL (3.8-10.6)
[2023-02-06] MEDS ORDERED: KETOROLAC 15 MG/ML 1 ML VIAL IVP STA (13:12)
[2023-02-06 14:27] LABS: ALT 103 U/L (4-34); AST 88 U/L (14-36); African American GFR (CKD) >90 (>60 ml/min/1.73 sqM); Albumin 3.7 g/dL (3.5-5.0); Alkaline Phosphatase 289 U/L (38-126); Anion Gap 8 mmol/L; Blood Urea Nitrogen 19 mg/dL (7-17); Calcium 8.9 mg/dL (8.4-10.2); Carbon Dioxide 26 mmol/L (22-30); Chloride 102 mmol/L (98-107); Glucose 135 mg/dL (74-99); Lipase 68 U/L (23-300); Non-African American GFR(CKD) >90 (>60 ml/min/1.73 sqM); Potassium 4.6 mmol/L (3.5-5.1); Sodium 136 mmol/L (137-145); Total Bilirubin 0.7 mg/dL (0.2-1.3); Total Protein 6.2 g/dL (6.3-8.2)
[2023-02-06] MEDS ORDERED: NALOXONE 0.4 MG/ML 1 ML VIAL IV PRN (14:58)
--- NOTE | 2023-02-06 15:19 | CT ---
EXAMINATION TYPE: CT abdomen pelvis w con DATE OF EXAM: 02/06/2023 HISTORY: persistent epigastric pain CT DLP: 609.3mGycm Automated Exposure Control for Dose Reduction was Utilized. CONTRAST: CT scan of the abdomen and pelvis is performed with IV Contrast, patient injected with 100 mL of Isov ue 300. COMPARISON: None. FINDINGS: LUNG BASES: No significant abnormality is appreciated. LIVER/GB: Multiple round heterogeneous hypodense masses throughout the liver consistent with metastat ic disease. PANCREAS: No significant abnormality is seen. SPLEEN: No significant abnormality is seen. ADRENALS: Nonspecific 8 mm mass in the left adrenal gland posteriorly and image 24.. KIDNEYS: No significant abnormality is seen. BOWEL: [id number] diffuse colonic fecal prominence. Suggestion of right eccentric wall thickeni ng or possible mass in the rectum axial image 78. No significant small or large bowel dilatation. UTERUS/ADNEXA: Retroflexed uterus. LYMPH NODES: No greater than 1cm abdominal or pelvic lymph nodes are appreciated. OSSEOUS STRUCTURES: Osseous structures somewhat demineralized.. OTHER: Mild/moderate calcified plaque of the aorta extends into branch vessels. IMPRESSION: Suspicious eccentric right rectal mass worrisome for neoplasm especially given hepatic me tastatic disease identified. There is moderate diffuse colonic fecal stasis or constipation. There is no bowel obstruction.
[2023-02-06] MEDS: SODIUM CHLORIDE 0.9% 1,000 ML IV SCH (17:02)
[2023-02-06] MEDS: MORPHINE SULFATE 4 MG/ML SYRINGE IV PRN (19:03)
[2023-02-06 20:51] LABS: Glucose,Whole Blood 192 mg/dL (70-110)
[2023-02-07] MEDS: MORPHINE SULFATE 4 MG/ML SYRINGE IV PRN ×5 (03:26→22:58)
[2023-02-07 07:14] LABS: Glucose,Whole Blood 117 mg/dL (70-110)
[2023-02-07 08:37] VITALS: BMI 24.8
[2023-02-07] MEDS ORDERED: DEXTROSE 50% SYRINGE 50 ML IVP PRN ×2 (08:54)
[2023-02-07] MEDS: INSULIN ASPART (NovoLOG) 100 UNIT/ML VIAL SQ SCH ×3 (09:05→17:39)
[2023-02-07] MEDS: PANTOPRAZOLE 40 MG/10 ML VIAL IVP SCH (09:07)
[2023-02-07] MEDS ORDERED: ALBUTEROL NEBULIZED 2.5 MG/3 ML INHALATION PRN (10:26)
--- NOTE | 2023-02-07 10:46 | P.CONS ---
History of Present Illness - Reason for Consult Consult date: 02/07/23 Liver lesions Requesting physician: King Shen - Chief Complaint Rectal pressure, abdominal pain - History of Present Illness This is a pleasant 62-year-old female with a history of diabetes mellitus, hyperlipidemia and hypertension that is a 3 day smoker since the age of 20 who presented to the emergency department for complaints of rectal pain, pressure and abdominal pain. Patient was seen here last Saturday for which she thought was hemorrhoidal pain. She was sent home with instructions for sitz bath, hemorrhoidal cream and instructed not to strain. She states that she had felt constipated last week Owen she took laxative and had a large bowel movement. Since that time then she started having rectal pain and pressure. She came back to the emergency department yesterday as that pain and pressure continued she is only able to have small hard bowel movements. Denies any rectal bleeding. States that she's been having some cramping and pressure in the lower abdomen and also has had some nausea and vomiting. She states that about 2 years ago she had a significant weight loss and went from 200 pounds to 130 pounds but she states that this related to her diabetes. She states though she has not noticed any significant weight loss recently however she states her has made comments. She has had no previous colonoscopy or EGD. No history of liver disease alcoholism or hepatitis. She had a CT of the abdomen and pelvis that showed hepatic lesion and rectal mass concerning for metastatic liver disease. Gastroenterology was consulted for liver lesions. Admitting Labs WBC 17.5 hemoglobin 15.7 hematocrit 46 platelet count 219,000 sodium 136 potassium 4.6 BUN 19 creatinine 0.59 glucose 135 total bilirubin 0.7 AST 88 ALT 103 alkaline phosphatase 289 lipase 68 Review of Systems REVIEW OF SYSTEMS: CARDIOPULMONARY: No chest pain or shortness of breath. Gastrointestinal: Lower abdominal pain, rectal pressure and pain. Nausea with vomiting. No hematemesis, coffee-ground emesis. No rectal bleeding, or melena. GENITOURINARY: No dysuria or hematuria. MUSCULOSKELETAL: Reports normal range of motion. SKIN: No rashes. No jaundice. ENDOCRINE: No chills, fevers. No excessive weight gain or loss. No polydipsia or polyuria. PSYCHIATRIC: Unremarkable. NEUROLOGY: No change in mental status. Denies dizziness, headache. ENT: Vision unremarkable. CONSTITUTIONAL: Patient states that she does not believe she had recent weight loss. No fever, chills, night sweats. Past Medical History Past Medical History: Diabetes Mellitus, Hyperlipidemia, Hypertension History of Any Multi-Drug Resistant Organisms: None Reported Past Surgical History: Hysterectomy Past Anesthesia/Blood Transfusion Reactions: No Reported Reaction Past Psychological History: No Psychological Hx Reported Smoking Status: Current every day smoker Past Alcohol Use History: None Reported Additional Past Alcohol Use History / Comment(s): has not had any alcohol since 2011 Past Drug Use History: None Reported - Past Family History Mother Family Medical History: CVA/TIA Father Family Medical History: Cancer Medications and Allergies Home Medications Medication Instructions Recorded Confirmed Type Atorvastatin [Lipitor] 20 mg PO DAILY 02/28/22 02/06/23 History Insulin Degludec [Tresiba 12 units SQ DAILY 02/28/22 02/06/23 History Flextouch U-200 Pen] lisinopriL [Prinivil] 10 mg PO DAILY 02/28/22 02/06/23 History Albuterol Sulfate [Albuterol 1 - 2 puff PO RT-Q6H PRN 02/06/23 02/06/23 History Sulfate Hfa] Allergies Allergy/AdvReac Type Severity Reaction Status Date / Time Penicillins Allergy Anaphylaxis Verified 02/06/23 14:20 & Hives Sulfa (Sulfonamide Allergy Anaphylaxis Verified 02/06/23 14:20 Antibiotics) & Hives steroids Allergy Diarrhea Uncoded 02/06/23 14:20 Physical Exam Vitals: Vital Signs Temp Pulse Pulse Resp BP BP Pulse Ox 02/07/23 07:10 98.1 F 70 16 99/66 93 L 02/07/23 02:48 98.5 F 73 17 111/58 93 L 02/06/23 20:00 78 16 02/06/23 19:32 98.2 F 78 16 95/59 95 02/06/23 19:09 99.9 F H 02/06/23 17:20 98.4 F 76 16 144/72 97 02/06/23 16:30 70 16 126/64 96 02/06/23 16:00 72 22 102/50 96 02/06/23 15:30 70 20 113/60 99 02/06/23 15:00 71 16 117/66 96 02/06/23 14:30 78 20 127/85 96 02/06/23 14:00 79 20 134/67 96 02/06/23 13:30 81 16 114/65 95 02/06/23 13:00 94 22 128/72 95 02/06/23 11:59 98.1 F 113 H 18 119/74 98 Intake and Output 02/06/23 02/07/23 02/07/23 22:59 06:59 14:59 Other: Voiding Method Toilet # Voids 1 2 Weight 61.689 kg 61.689 kg General appearance: The patient is alert, oriented, appears in no acute distress. HET: Head is normocephalic and atraumatic. Conjunctiva pink. Sclera anicteric. Neck: Supple without lymphadenopathy. Trachea midline. Heart: Regular. Lungs: Equal expansion, normal respiratory effort. Abdomen: Soft, diffuse tenderness, nondistended. No guarding or rigidity. Skin: No rashes. No jaundice. Extremities: Normal skin color and turgor. No pedal edema. Neurological: No focal deficits. Alert and oriented x3. Results CBC & Chem 7: 02/06/23 12:37 02/06/23 13:44 Labs: Abnormal Lab Results - Last 24 Hours (Table) 02/06/23 02/06/23 02/06/23 Range/Units 12:37 13:44 20:46 WBC 17.5 H (3.8-10.6) k/uL Hct 46.5 H (34.0-46.0) % Neutrophils # 14.2 H (1.3-7.7) k/uL Sodium 136 L (137-145) mmol/L BUN 19 H (7-17) mg/dL Glucose 135 H (74-99) mg/dL POC Glucose (mg/dL) 192 H (70-110) mg/dL AST 88 H (14-36) U/L ALT 103 H (4-34) U/L Alkaline Phosphatase 289 H (38-126) U/L Total Protein 6.2 L (6.3-8.2) g/dL 02/07/23 Range/Units 07:12 WBC (3.8-10.6) k/uL Hct (34.0-46.0) % Neutrophils # (1.3-7.7) k/uL Sodium (137-145) mmol/L BUN (7-17) mg/dL Glucose (74-99) mg/dL POC Glucose (mg/dL) 117 H (70-110) mg/dL AST (14-36) U/L ALT (4-34) U/L Alkaline Phosphatase (38-126) U/L Total Protein (6.3-8.2) g/dL Comments: CT abdomen and pelvis with contrast reports multiple round heterogeneous hypodense masses throughout the liver consistent with metastatic disease. Mild to moderate diffuse colonic fecal prominence. A suggestion of right eccentric wall thickening or possible mass in the rectum. No significant small or large bowel dilation. Specialist eccentric right rectal mass worrisome for neoplasm especially given hepatic metastatic disease identified. There is moderate diffuse colonic fecal stasis or constipation. There is no bowel obstruction. Assessment and Plan (1) Abdominal pain Narrative/Plan: 62-year-old female presented for abdominal pain and rectal pressure with difficulty having bowel movements. No previous history of colonoscopy and no cold guard completed as of. She was noted to have elevated liver enzymes. CT abdomen and pelvis concerning for multiple liver lesions as well as rectal mass concerning for metastatic disease. Tentatively plan for colonoscopy tomorrow. Labs ordered and oncology on consult. Await their further recommendations. Current Visit: Yes Status: Acute Code(s): R10.9 - UNSPECIFIED ABDOMINAL PAIN SNOMED Code(s): 58598686 (2) Hepatic lesion Current Visit: Yes Status: Acute Code(s): K76.9 - LIVER DISEASE, UNSPECIFIED SNOMED Code(s): 309928543 (3) Rectal mass Current Visit: Yes Status: Acute Code(s): K62.89 - OTHER SPECIFIED DISEASES OF ANUS AND RECTUM SNOMED Code(s): 581971477 Plan: 1. Continue symptomatic and supportive care 2. Clear liquid diet 3. Nothing by mouth after midnight 4. Bowel prep this evening 5. Tentative plan to schedule for colonoscopy tomorrow 6. CEA, AFP, INR, hepatitis panel ordered 7. Await further recommendations from oncology Thank you for this consultation, we will continue to follow. Dr. Roxy Lomeli I agree with the dictator's note, documented as a scribe by Luisa Rios.
[2023-02-07] MEDS ORDERED: RX INFO: IV CONTRAST WAS GIVEN 1 EACH MISC MISCELLANE PRN (11:31)
[2023-02-07 11:45] LABS: Glucose,Whole Blood 142 mg/dL (70-110)
--- NOTE | 2023-02-07 14:06 | P.HPIM ---
History of Present Illness H&P Date: 02/07/23 Chief Complaint: Dyspnea This is a 62-year-old female past medical history significant for T2DM, HTN, HLD, nicotine dependence- who presented to the ED with persistent rectal pain that progressed into her upper abdomen. Patient had presented to the ER 4 days prior with rectal pain and discharged home. [place] constipated at work, went home, took some laxatives, and had a near syncopal spell. Developed increased pressure with a couple tiny BMs, pressure resolved. Developed nausea and vomiting. Pain further progressing from mid epigastric/bilateral upper abdomen into her right shoulder. Patient has now had a prior colonoscopy. She picked up her Corgard kit last week, but was unable to proceed with that as she reports rectal bleeding. Denies alcohol use .Reports she has cutback her cigarette smoking to 5 cigarettes per day. Denies weight loss. WBC 17.5, hemoglobin 15.7, platelet count 219, sodium 136, potassium 4.6 BUN 19 creatinine 0.59, glucose 135, total bili 0.7 AST 88 ALT 103 alkaline phosphatase 289, lipase 68. CT abdomen and pelvis with contrast reported multiple round heterogeneous hypodense masses throughout the liver consistent with metastatic disease. Mild to moderate diffuse colonic fecal prominence. Suggestion of right eccentric wall thickening or possible mass in the rectum. No significant small or large bowel dilation. Suspicious eccentric right rectal mass worrisome for neoplasm especially given hepatic metastatic disease identified. There is moderate diffuse colonic fecal stasis or constipation. There is no bowel obstruction. Review of Systems ROS Statement: Those systems with pertinent positive or pertinent negative responses have been documented in the HPI. ROS Other: All systems not noted in ROS Statement are negative. Past Medical History Past Medical History: Diabetes Mellitus, Hyperlipidemia, Hypertension History of Any Multi-Drug Resistant Organisms: None Reported Past Surgical History: Hysterectomy Past Anesthesia/Blood Transfusion Reactions: No Reported Reaction Past Psychological History: No Psychological Hx Reported Smoking Status: Current every day smoker Past Alcohol Use History: None Reported Additional Past Alcohol Use History / Comment(s): has not had any alcohol since 2011 Past Drug Use History: None Reported - Past Family History Mother Family Medical History: CVA/TIA Father Family Medical History: Cancer Medications and Allergies Home Medications Medication Instructions Recorded Confirmed Type Atorvastatin [Lipitor] 20 mg PO DAILY 02/28/22 02/06/23 History Insulin Degludec [Tresiba 12 units SQ DAILY 02/28/22 02/06/23 History Flextouch U-200 Pen] lisinopriL [Prinivil] 10 mg PO DAILY 02/28/22 02/06/23 History Albuterol Sulfate [Albuterol 1 - 2 puff PO RT-Q6H PRN 02/06/23 02/06/23 History Sulfate Hfa] Allergies Allergy/AdvReac Type Severity Reaction Status Date / Time Penicillins Allergy Anaphylaxis Verified 02/06/23 14:20 & Hives Sulfa (Sulfonamide Allergy Anaphylaxis Verified 02/06/23 14:20 Antibiotics) & Hives steroids Allergy Diarrhea Uncoded 02/06/23 14:20 Physical Exam Vitals: Vital Signs Temp Pulse Pulse Resp BP BP Pulse Ox 02/07/23 07:10 98.1 F 70 16 99/66 93 L 02/07/23 02:48 98.5 F 73 17 111/58 93 L 02/06/23 20:00 78 16 02/06/23 19:32 98.2 F 78 16 95/59 95 02/06/23 19:09 99.9 F H 02/06/23 17:20 98.4 F 76 16 144/72 97 02/06/23 16:30 70 16 126/64 96 02/06/23 16:00 72 22 102/50 96 02/06/23 15:30 70 20 113/60 99 02/06/23 15:00 71 16 117/66 96 02/06/23 14:30 78 20 127/85 96 02/06/23 14:00 79 20 134/67 96 02/06/23 13:30 81 16 114/65 95 02/06/23 13:00 94 22 128/72 95 02/06/23 11:59 98.1 F 113 H 18 119/74 98 Intake and Output 02/06/23 02/07/23 02/07/23 22:59 06:59 14:59 Other: Voiding Method Toilet # Voids 1 2 Weight 61.689 kg 61.689 kg General: well nourished, well developed, NAD. Vitals reviewed Eyes: PERRL, EOMI, conjunctiva normal HENT: normocephalic Neck: supple, no JVD Lungs: normal respiratory effort, no wheezes or rales CV: Regular rate and rhythm, no murmur. Peripheral pulses 2+ Abdomen: soft, nondistended, diffuse tenderness , no guarding, no rigidity positive bowel sounds Skin: warm and dry. Neuro: A&Ox3, normal mood and affect Results CBC & Chem 7: 02/06/23 12:37 02/06/23 13:44 Labs: Abnormal Lab Results - Last 24 Hours (Table) 02/06/23 02/06/23 02/06/23 Range/Units 12:37 13:44 20:46 WBC 17.5 H (3.8-10.6) k/uL Hct 46.5 H (34.0-46.0) % Neutrophils # 14.2 H (1.3-7.7) k/uL Sodium 136 L (137-145) mmol/L BUN 19 H (7-17) mg/dL Glucose 135 H (74-99) mg/dL POC Glucose (mg/dL) 192 H (70-110) mg/dL AST 88 H (14-36) U/L ALT 103 H (4-34) U/L Alkaline Phosphatase 289 H (38-126) U/L Total Protein 6.2 L (6.3-8.2) g/dL 02/07/23 Range/Units 07:12 WBC (3.8-10.6) k/uL Hct (34.0-46.0) % Neutrophils # (1.3-7.7) k/uL Sodium (137-145) mmol/L BUN (7-17) mg/dL Glucose (74-99) mg/dL POC Glucose (mg/dL) 117 H (70-110) mg/dL AST (14-36) U/L ALT (4-34) U/L Alkaline Phosphatase (38-126) U/L Total Protein (6.3-8.2) g/dL Thrombosis Risk Factor Assmnt - Choose All That Apply Any of the Below Risk Factors Present?: Yes Each Factor Represents 1 point: Age 41-60 years Other Risk Factors: No Other congenital or acquired thrombophilia - If yes, enter type in comment: No Thrombosis Risk Factor Assessment Total Risk Factor Score: 1 Thrombosis Risk Factor Assessment Level: Low Risk Assessment and Plan Assessment: Rectal and abdominal pain, CT reporting liver masses, consistent for metastatic disease, rectal mass suspicious for malignancy Moderate constipation T2DM HTN Plan: Continue on current medication regime ,monitoring and symptomatic treatment. Gentle IV fluid hydration. Close monitoring of coags, LFTs with rep eat labs ordered for a.m. Evaluated by GI, scheduled for colonoscopy tomorrow. Oncology consult in place, tumor markers ordered. Prognosis guarded given multiple complex medical issues. The impression and plan of care has been dictated as directed. : I performed a history and examination of this patient, discussed the same with the dictator. I agree with the dictator's note ,documented as a scribe. Any additional findings or plans will be noted.
[2023-02-07 15:43] LABS: HCT 37.4 % (37.2-46.3); MCH 30.6 pg (27.0-32.0); MCHC 32.1 g/dL (32.0-37.0); MCV 95.4 FL (80.0-97.0); Mean Platelet Volume 10.8 FL (9.5-12.2); NRBC Per 100 WBC 0 X 10*3/uL (0.00-0.01); Platelet Count 233 X 10*3/uL (140-440); RBC 3.92 X 10*6/uL (4.10-5.20); RDW 12.7 % (11.5-14.5); WBC 14.47 X 10*3/uL (4.50-10.00)
[2023-02-07] MEDS ORDERED: PEG 3350 (236 GM/BTL) + LYTES 4,000 ML BOTTLE PO ONE (16:00)
[2023-02-07 16:15] LABS: Carcinoembryonic Antigen 9.2 ng/mL (0.0-4.9)
[2023-02-07 16:37] LABS: Hepatitis A Antibody IgM Nonreactive; Hepatitis B Core IgM Nonreactive; Hepatitis B Surface Antigen Nonreactive; Hepatitis C IgG Antibody Nonreactive
[2023-02-07 16:42] LABS: ALT 87 U/L (8-44); AST 67 U/L (13-35); Albumin 3.8 g/dL (3.8-4.9); Alkaline Phosphatase 318 U/L (41-126); BUN/Creat Ratio 27.86 Ratio (12.00-20.00); Blood Urea Nitrogen 19.5 mg/dL (9.0-27.0); Calcium 9.3 mg/dL (8.7-10.3); Carbon Dioxide 25.1 mmol/L (21.6-31.8); Chloride 101 mmol/L (96-109); Glucose 143 mg/dL (70-110); Potassium 4.5 mmol/L (3.5-5.5); Sodium 137 mmol/L (135-145); Total Bilirubin 0.4 mg/dL (0.3-1.2); Total Protein 5.8 g/dL (6.2-8.2)
[2023-02-07 16:44] LABS: Alpha Fetoprotein, Tumor Mkr <3.00 ng/mL (0.00-7.90)
[2023-02-07 17:17] LABS: Glucose,Whole Blood 116 mg/dL (70-110)
[2023-02-07] MEDS: SODIUM CHLORIDE 0.9% 1,000 ML IV SCH (17:39)
--- NOTE | 2023-02-07 20:17 | P.CONS ---
History of Present Illness - Reason for Consult Consult date: 02/07/23 liver lesions Requesting physician: Lacho Carreon - Chief Complaint abominal pain - History of Present Illness Patient is a 62-year-old female with a history of type 2 diabetes. Consult was placed for CT scan revealing liver lesions. Patient reports symptoms began 5 days ago after she began experiencing constipation and took a laxative which she reports exacerbated her hemorrhoids which caused her to present to the ER for further evaluation. Patient was treated for constipation and was discharged. Patient reports since discharge she has been experiencing increasing abdominal pressure with associated nausea vomiting and lightheadedness. Patient also reports pain in the upper abdomen and right lower chest began worsening. Patient states her appetite has overall been unchanged prior to admission but has had an approximate 70 pound unintentional weight loss over the last 2 years, but attributed this to her diabetes. She also reports recent increasing fatigue. Denies abdominal bloating. Patient states she has declined previous colonoscopy by her PCP but a Cologuard was ordered but has not yet been sent in. Upon admission CT abdomen and pelvis revealed suspicious eccentric right rectal mass with multiple round heterogeneous hypodense masses throughout the liver consistent with metastatic disease. No evidence of bowel obstruction. Upon review of labs, transaminitis noted. Bilirubin normal. CEA elevated at 9.2. Acute hepatitis panel negative. Review of Systems 10 point ROS is negative except as stated in the HPI Past Medical History Past Medical History: Diabetes Mellitus, Hyperlipidemia, Hypertension History of Any Multi-Drug Resistant Organisms: None Reported Past Surgical History: Hysterectomy Past Anesthesia/Blood Transfusion Reactions: No Reported Reaction Past Psychological History: No Psychological Hx Reported Smoking Status: Current every day smoker Past Alcohol Use History: None Reported Additional Past Alcohol Use History / Comment(s): has not had any alcohol since 2011 Past Drug Use History: None Reported - Past Family History Mother Family Medical History: CVA/TIA Father Family Medical History: Cancer Medications and Allergies Home Medications Medication Instructions Recorded Confirmed Type Atorvastatin [Lipitor] 20 mg PO DAILY 02/28/22 02/06/23 History Insulin Degludec [Tresiba 12 units SQ DAILY 02/28/22 02/06/23 History Flextouch U-200 Pen] lisinopriL [Prinivil] 10 mg PO DAILY 02/28/22 02/06/23 History Albuterol Sulfate [Albuterol 1 - 2 puff PO RT-Q6H PRN 02/06/23 02/06/23 History Sulfate Hfa] Allergies Allergy/AdvReac Type Severity Reaction Status Date / Time Penicillins Allergy Anaphylaxis Verified 02/06/23 14:20 & Hives Sulfa (Sulfonamide Allergy Anaphylaxis Verified 02/06/23 14:20 Antibiotics) & Hives steroids Allergy Diarrhea Uncoded 02/06/23 14:20 Physical Exam Vitals: Vital Signs Temp Pulse Resp BP Pulse Ox 02/07/23 19:22 98.1 F 68 16 106/52 94 L 02/07/23 14:26 98.7 F 77 16 122/69 95 02/07/23 07:10 98.1 F 70 16 99/66 93 L 02/07/23 02:48 98.5 F 73 17 111/58 93 L 02/06/23 20:00 78 16 Intake and Output 02/07/23 02/07/23 02/07/23 06:59 14:59 22:59 Other: Voiding Method Toilet # Voids 2 Weight 61.689 kg - Constitutional General appearance: average body habitus, no acute distress - EENT Eyes: anicteric sclerae, EOMI ENT: hearing grossly normal - Neck Neck: no lymphadenopathy - Respiratory Respiratory: bilateral: CTA - Cardiovascular Rhythm: regular Heart sounds: normal: S1, S2 - Gastrointestinal General gastrointestinal: hepatomegaly, tenderness Localized gastrointestinal: tender: RUQ, epigastric periumbilical - Integumentary Integumentary: no cyanotic, no jaundiced - Neurologic grossly intact - Musculoskeletal tenderness to inferior medial right chest wall Musculoskeletal: strength equal bilaterally - Psychiatric Psychiatric: A&O x's 3 Results CBC & Chem 7: 02/07/23 11:56 02/07/23 11:56 Labs: Abnormal Lab Results - Last 24 Hours (Table) 02/06/23 02/07/23 02/07/23 Range/Units 20:46 07:12 11:36 WBC (4.50-10.00) X 10*3/uL RBC (4.10-5.20) X 10*6/uL BUN/Creatinine Ratio (12.00-20.00) Ratio Glucose (70-110) mg/dL POC Glucose (mg/dL) 192 H 117 H (70-110) mg/dL AST (13-35) U/L ALT (8-44) U/L Alkaline Phosphatase (41-126) U/L Total Protein (6.2-8.2) g/dL Carcinoembryonic Ag 8.8 H (0.0-4.9) ng/mL 02/07/23 02/07/23 02/07/23 Range/Units 11:44 11:56 11:56 WBC 14.47 H (4.50-10.00) X 10*3/uL RBC 3.92 L (4.10-5.20) X 10*6/uL BUN/Creatinine Ratio 27.86 H (12.00-20.00) Ratio Glucose 143 H (70-110) mg/dL POC Glucose (mg/dL) 142 H (70-110) mg/dL AST 67 H (13-35) U/L ALT 87 H (8-44) U/L Alkaline Phosphatase 318 H (41-126) U/L Total Protein 5.8 L (6.2-8.2) g/dL Carcinoembryonic Ag (0.0-4.9) ng/mL 02/07/23 02/07/23 Range/Units 11:56 17:16 WBC (4.50-10.00) X 10*3/uL RBC (4.10-5.20) X 10*6/uL BUN/Creatinine Ratio (12.00-20.00) Ratio Glucose (70-110) mg/dL POC Glucose (mg/dL) 116 H (70-110) mg/dL AST (13-35) U/L ALT (8-44) U/L Alkaline Phosphatase (41-126) U/L Total Protein (6.2-8.2) g/dL Carcinoembryonic Ag 9.2 H (0.0-4.9) ng/mL CT scan - abdomen: report reviewed CT scan - pelvis: report reviewed Assessment and Plan (1) Hepatic lesion Current Visit: Yes Status: Acute Priority: High Code(s): K76.9 - LIVER DISEASE, UNSPECIFIED SNOMED Code(s): 277506650 (2) Rectal mass Current Visit: Yes Status: Acute Priority: High Code(s): K62.89 - OTHER SPECIFIED DISEASES OF ANUS AND RECTUM SNOMED Code(s): 990285543 Plan: Rectal mass, liver lesions: -Presented with progressing abdominal pressure/pain with associated nausea vomiting and lightheadedness over the last 5 days. Reports approximate 70 pound unintentional weight loss over the last 2 years, but attributed this to her diabetes. Denies night sweats. Has declined previous colonoscopy by her PCP but a Cologuard was ordered but has not yet been sent in. -Upon admission CT abdomen and pelvis revealed suspicious eccentric right rectal mass with multiple round heterogeneous hypodense masses throughout the liver consistent with metastatic disease. No evidence of bowel obstruction. -Transaminitis noted. Bilirubin normal. CEA elevated at 9.2. Acute hepatitis panel negative -Findings and concerns for malignancy were discussed with patient in detail -Will obtain CT chest for staging -GI consulted, plan for colonoscopy with biopsy tomorrow. -Will plan to send NGS and PDL 1 on specimen -Will establish care outpt upon discharge to further discuss pathology, treatment options and goals of care attests: I seen and examined patient, Performed H&P, developed impression and plan of care. Discussed with dictator. Agree with documentation, dictated as a scribe
[2023-02-07 20:47] LABS: Glucose,Whole Blood 125 mg/dL (70-110)
[2023-02-08 00:19] LABS: Glucose,Whole Blood 125 mg/dL (70-110)
[2023-02-08] MEDS: INSULIN ASPART (NovoLOG) 100 UNIT/ML VIAL SQ SCH ×4 (00:27→18:05)
[2023-02-08] MEDS: MORPHINE SULFATE 4 MG/ML SYRINGE IV PRN ×4 (03:15→23:34)
[2023-02-08 05:53] LABS: Glucose,Whole Blood 129 mg/dL (70-110)
[2023-02-08] MEDS: PANTOPRAZOLE 40 MG/10 ML VIAL IVP SCH (07:57)
--- NOTE | 2023-02-08 10:37 | CT ---
EXAMINATION TYPE: CT chest w con CT DLP: 181.6 mGycm, Automated exposure control for dose reduction was used. DATE OF EXAM: 02/07/2023 10:36 PM COMPARISON: CT abdomen and pelvis 02/06/2023 CLINICAL INDICATION:Female, 62 years old with history of rectal mass, liver mets, staging; PHH, Liver and rectal mets, staging Ca. TECHNIQUE: Multiple axial images were obtained through the chest. Sagittal and coronal reformats were created for review. Contrast used:100 cc mL of Isovue 300 with IV Contrast (None if empty) Oral contrast used: (None if empty) FINDINGS: LUNGS/ PLEURA: Mild/moderate emphysematous changes bilaterally. No mass or consolidation. Mild bibasi lar atelectasis. Subpleural nodular density posteriorly in the right lower lobe image 41 series 5 jaelyn sures 5 mm. Additional 3 mm nodule posteriorly image 46. AIRWAY: Central airways are patent. There is a small amount of mucus secretion noted along the right mid to distal trachea. HEART: Size within normal limits. Moderate calcification of the mitral valve. Mild/moderate atheroscl erotic calcifications of the coronary arteries. No pericardial effusion. MEDIASTINUM: No gross evidence of adenopathy. VASCULATURE: Mild/moderate atherosclerotic calcifications of the aorta, mostly along the arch. Some irregular soft plaque is also seen in the descending thoracic and upper abdominal aorta. No evidence of aortic aneurysm or dissection. Mild narrowing of the proximal branch vessels from the arch. MUSCULOSKELETAL: No acute abnormality or evidence for lytic/blastic lesion. Mild degenerative changes of the thoracic spine. SOFT TISSUES/LYMPH NODES: Unremarkable. LOWER NECK: Limited evaluation with no significant findings seen.. UPPER ABDOMEN: Please refer to recent CT abdomen for description of findings, including hepatic metas tases. IMPRESSION: 1. No clear evidence of metastatic disease to the chest. 2. A couple of subcentimeter right lung nodules, nonspecific. Recommend follow-up to exclude any leandro nce of pulmonary metastatic disease. 3. Mild/moderate pulmonary emphysema.
[2023-02-08 11:52] LABS: Glucose,Whole Blood 102 mg/dL (70-110)
[2023-02-08] MEDS ORDERED: HYDROmorphone 0.5 MG/0.5 ML SYRINGE IVP PRN (13:50)
--- NOTE | 2023-02-08 14:07 | P.PN ---
Subjective Progress Note Date: 02/08/23 H&P Date: 02/07/23 Chief Complaint: Dyspnea This is a 62-year-old female past medical history significant for T2DM, HTN, HLD, nicotine dependence- who presented to the ED with persistent rectal pain that progressed into her upper abdomen. Patient had presented to the ER 4 days prior with rectal pain and discharged home. [place] constipated at work, went ho me, took some laxatives, and had a near syncopal spell. Developed increased pressure with a couple tiny BMs, pressure resolved. Developed nausea and vomiting. Pain further progressing from mid epigastric/bilateral upper abdomen into her right shoulder. Patient has now had a prior colonoscopy. She picked up her Corgard kit last week, but was unable to proceed with that as she reports rectal bleeding. Denies alcohol use .Reports she has cutback her cigarette smoking to 5 cigarettes per day. Denies weight loss. WBC 17.5, hemoglobin 15.7, platelet count 219, sodium 136, potassium 4.6 BUN 19 creatinine 0.59, glucose 135, total bili 0.7 AST 88 ALT 103 alkaline phosphatase 289, lipase 68. CT abdomen and pelvis with contrast reported multiple round heterogeneous hypodense masses throughout the liver consistent with metastatic disease. Mild to moderate diffuse colonic fecal prominence. Suggestion of right eccentric wall thickening or possible mass in the rectum. No significant small or large bowel dilation. Suspicious eccentric right rectal mass worrisome for neoplasm especially given hepatic metastatic disease identified. There is moderate diffuse colonic fecal stasis or constipation. There is no bowel obstruction. 02/08/23 finshed prep around 10 this morning, staff reports still not clear. Further prep per GI.Colonscopy pending for later today.Reports positive abdom inal-mid epigastric along Xyphoid border pain.Droggy from pain medication. Hepatitis panel nonreactive. CEA elevated, 9.2. Evaluated by oncology with recommendations noted. Objective - Vital Signs Vital signs: Vital Signs Temp 98 F 02/08/23 07:41 Pulse 79 02/08/23 07:41 Resp 17 02/08/23 07:41 BP 131/68 02/08/23 07:41 Pulse Ox 95 02/08/23 07:41 FiO2 Intake & Output 02/07/23 02/08/23 02/08/23 18:59 06:59 18:59 Weight 61.689 kg Other: Voiding Method Toilet Toilet # Voids 2 - Exam General: well nourished, well developed, NAD. Vitals reviewed Eyes: PERRL, EOMI, conjunctiva normal HENT: normocephalic Neck: supple, no JVD Lungs: normal respiratory effort, minimal expiratory wheeze CV: Regular rate and rhythm, no murmur. Peripheral pulses 2+ Abdomen: soft, nondistended, mid epigastric tenderness , no guarding, no rigidity positive bowel sounds Skin: warm and dry. Neuro: A&Ox3, normal mood and affect - Labs CBC & Chem 7: 02/07/23 11:56 02/07/23 11:56 Labs: Abnormal Lab Results - Last 24 Hours (Table) 02/06/23 02/07/23 02/07/23 Range/Units 12:37 11:36 11:44 WBC (4.50-10.00) X 10*3/uL RBC (4.10-5.20) X 10*6/uL BUN/Creatinine Ratio (12.00-20.00) Ratio Glucose (70-110) mg/dL POC Glucose (mg/dL) 142 H (70-110) mg/dL Hemoglobin A1c 7.3 H (<=6.0) % AST (13-35) U/L ALT (8-44) U/L Alkaline Phosphatase (41-126) U/L Total Protein (6.2-8.2) g/dL Carcinoembryonic Ag 8.8 H (0.0-4.9) ng/mL 02/07/23 02/07/23 02/07/23 Range/Units 11:56 11:56 11:56 WBC 14.47 H (4.50-10.00) X 10*3/uL RBC 3.92 L (4.10-5.20) X 10*6/uL BUN/Creatinine Ratio 27.86 H (12.00-20.00) Ratio Glucose 143 H (70-110) mg/dL POC Glucose (mg/dL) (70-110) mg/dL Hemoglobin A1c (<=6.0) % AST 67 H (13-35) U/L ALT 87 H (8-44) U/L Alkaline Phosphatase 318 H (41-126) U/L Total Protein 5.8 L (6.2-8.2) g/dL Carcinoembryonic Ag 9.2 H (0.0-4.9) ng/mL 02/07/23 02/07/23 02/08/23 Range/Units 17:16 20:45 00:17 WBC (4.50-10.00) X 10*3/uL RBC (4.10-5.20) X 10*6/uL BUN/Creatinine Ratio (12.00-20.00) Ratio Glucose (70-110) mg/dL POC Glucose (mg/dL) 116 H 125 H 125 H (70-110) mg/dL Hemoglobin A1c (<=6.0) % AST (13-35) U/L ALT (8-44) U/L Alkaline Phosphatase (41-126) U/L Total Protein (6.2-8.2) g/dL Carcinoembryonic Ag (0.0-4.9) ng/mL 02/08/23 Range/Units 05:51 WBC (4.50-10.00) X 10*3/uL RBC (4.10-5.20) X 10*6/uL BUN/Creatinine Ratio (.00-20.00) Ratio Glucose (70-110) mg/dL POC Glucose (mg/dL) 129 H (70-110) mg/dL Hemoglobin A1c (<=6.0) % AST (13-35) U/L ALT (8-44) U/L Alkaline Phosphatase (41-126) U/L Total Protein (6.2-8.2) g/dL Carcinoembryonic Ag (0.0-4.9) ng/mL Assessment and Plan Assessment: Rectal and abdominal pain, CT reporting liver masses, consistent for metastatic disease, rectal mass suspicious for malignancy Moderate constipation T2DM HTN Plan: Continue on current medication regime ,monitoring and symptomatic treatment. Gentle IV fluid hydration. Colonoscopy pending. Prognosis guarded given multiple complex medical issues. The impression and plan of care has been dictated as directed. : I performed a history and examination of this patient, discussed the same with the dictator. I agree with the dictator's note ,documented as a scribe. Any additional findings or plans will be noted.
--- NOTE | 2023-02-08 15:10 | P.PN ---
Subjective Progress Note Date: 02/08/23 No acute events Reporting persisting upper abdominal pain, pain meds do help but only lasting approx 2 hours. Denies n/v Scheduled for colonoscopy today Objective - Vital Signs Vital signs: Vital Signs Temp 98.6 F 02/08/23 11:51 Pulse 80 02/08/23 11:51 Resp 17 02/08/23 11:51 BP 142/76 02/08/23 11:51 Pulse Ox 92 L 02/08/23 11:51 FiO2 Intake & Output 02/07/23 02/08/23 02/08/23 18:59 06:59 18:59 Weight 61.689 kg Other: Voiding Method Toilet Toilet Toilet # Voids 2 2 # Bowel Movements 2 - Constitutional General appearance: Present: average body habitus, no acute distress - EENT ENT: Present: hearing grossly normal - Respiratory Details: breathing is even and unlabored - Cardiovascular Details: skin warm and dry - Gastrointestinal General gastrointestinal: Present: tenderness Localized gastrointestinal: tender: RUQ, epigastric periumbilical, guarding: RUQ, epigastric periumbilical - Integumentary Integumentary: Absent: cyanotic, jaundiced - Neurologic Neurologic Comment(s): grossly intact - Musculoskeletal Musculoskeletal: Present: strength equal bilaterally - Psychiatric Psychiatric: Present: A&O x's 3 - Labs CBC & Chem 7: 02/07/23 11:56 02/07/23 11:56 Labs: Abnormal Lab Results - Last 24 Hours (Table) 02/06/23 02/07/23 02/07/23 Range/Units 12:37 11:36 11:56 WBC 14.47 H (4.50-10.00) X 10*3/uL RBC 3.92 L (4.10-5.20) X 10*6/uL BUN/Creatinine Ratio (12.00-20.00) Ratio Glucose (70-110) mg/dL POC Glucose (mg/dL) (70-110) mg/dL Hemoglobin A1c 7.3 H (<=6.0) % AST (13-35) U/L ALT (8-44) U/L Alkaline Phosphatase (41-126) U/L Total Protein (6.2-8.2) g/dL Carcinoembryonic Ag 8.8 H (0.0-4.9) ng/mL 12/07/23 12/07/23 12/07/23 Range/Units 11:56 11:56 17:16 WBC (4.50-10.00) X 10*3/uL RBC (4.10-5.20) X 10*6/uL BUN/Creatinine Ratio 27.86 H (12.00-20.00) Ratio Glucose 143 H (70-110) mg/dL POC Glucose (mg/dL) 116 H (70-110) mg/dL Hemoglobin A1c (<=6.0) % AST 67 H (13-35) U/L ALT 87 H (8-44) U/L Alkaline Phosphatase 318 H (41-126) U/L Total Protein 5.8 L (6.2-8.2) g/dL Carcinoembryonic Ag 9.2 H (0.0-4.9) ng/mL 02/07/23 02/08/23 02/08/23 Range/Units 20:45 00:17 05:51 WBC (4.50-10.00) X 10*3/uL RBC (4.10-5.20) X 10*6/uL BUN/Creatinine Ratio (12.00-20.00) Ratio Glucose (70-110) mg/dL POC Glucose (mg/dL) 125 H 125 H 129 H (70-110) mg/dL Hemoglobin A1c (<=6.0) % AST (13-35) U/L ALT (8-44) U/L Alkaline Phosphatase (41-126) U/L Total Protein (6.2-8.2) g/dL Carcinoembryonic Ag (0.0-4.9) ng/mL Assessment and Plan (1) Hepatic lesion Current Visit: Yes Status: Acute Priority: High Code(s): K76.9 - LIVER DI SEASE, UNSPECIFIED SNOMED Code(s): 570510192 (2) Rectal mass Current Visit: Yes Status: Acute Priority: High Code(s): K62.89 - OTHER SPECIFIED DISEASES OF ANUS AND RECTUM SNOMED Code(s): 900945417 Plan: Rectal mass, liver lesions: -Presented with progressing abdominal pressure/pain with associated nausea vomiting and lightheadedness over the last 5 days. Reports approximate 70 pound unintentional weight loss over the last 2 years, but attributed this to her diabetes. Denies night sweats. Has declined previous colonoscopy by her PCP but a Cologuard was ordered but has not yet been sent in. -Upon admission CT abdomen and pelvis revealed suspicious eccentric right rectal mass with multiple round heterogeneous hypodense masses throughout the liver consistent with metastatic disease. No evidence of bowel obstruction. -Transaminitis noted. Bilirubin normal. CEA elevated at 9.2. Acute hepatitis panel negative -Findings and concerns for malignancy were discussed with patient in detail -CT chest ordered for staging. Scan revealed no evidence of metastatic disease to the chest. A couple of subcentimeter right lung nodules were noted but are nonspecific. -GI consulted, plan for colonoscopy with biopsy today. -Will plan to send NGS and PDL 1 on specimen -Will establish care outpt upon discharge to further discuss pathology, treatment options and goals of care Intractable abdominal pain - 2/2 of metastatic disease to liver -Pain is somewhat controlled on morphine but only providing 2 hours of pain relief, will add dilaudid IVP for breakthrough pain -Will continue to monitor and make adjustments as needed
[2023-02-08] MEDS ORDERED: PROPOFOL 10 MG/ML 20 ML VIAL IV ONE (16:12)
[2023-02-08] MEDS ORDERED: IV FLUID CONTINUATION 1,000 ML IV ONE ×2 (16:13)
--- NOTE | 2023-02-08 16:41 | P.PCN ---
Date of Procedure: 02/08/23 Procedure(s) Performed: BRIEF HISTORY: Patient is a 62-year-old pleasant white female admitted hospital with severe epigastric pain for the last few days duration. She lost 70 pounds in 6 months.. She had a CT of the abdomen and pelvis done that showed lesion in the rectum suspicious for neoplasm and multiple lesions in the liver suspicious for metastasis. She is hence scheduled for colonoscopy to evaluate further. PROCEDURE PERFORMED: Colonoscopy with with biopsy and snare polypectomy PREOPERATIVE DIAGNOSIS: Abnormal CAT scan showing rectal lesion and multiple lesions in the liver suspicious for metastasis. IV sedation per Anesthesia. PROCEDURE: After informed consent was obtained, the patient, was brought into the endoscopy unit. IV sedation was administered by Anesthesia under continuous monitoring. Digital rectal examination was normal. Initially the Olympus CF-160 flexible video colonoscope was then inserted in the rectum, gradually advanced into the cecum without any difficulty. Careful examination was performed as the scope was gradually being withdrawn. Ileocecal valve and the appendiceal orifice were visualized and appeared normal. Prep was excellent. Mucosa of the cecum, ascending colon, transverse colon, descending colon, sigmoid colon, and appeared normal. In the rectosigmoid colon at 80 cm from anal was there was a 2.5 cm this polyp removed bysnare polypectomy. In the mid rectum there was a 1 cm polyp removed by snare polypectomy. In the distal rectum there was a 3-4 cm ulcerated mass identified extending up to the the dentate line and multiple biopsies were done from this area. Retroflexion was performed in the rectum and no lesions were seen. The patient tolerated the procedure well. IMPRESSION: 3-4 cm ulcerated lesion in the distal rectum extending up to dentate line consistent with neoplasm status post multiple biopsies 1 cm mid rectal polyp status post polypectomy 2.5 cm rectosigmoid polyp status post polypectomy RECOMMENDATIONS: Findings of this examination were discussed with the patient . Await biopsy results. Advance to regular diet.
[2023-02-08] MEDS: SODIUM CHLORIDE 0.9% 1,000 ML IV SCH (16:54)
[2023-02-08 17:28] LABS: Glucose,Whole Blood 86 mg/dL (70-110)
[2023-02-08 23:56] LABS: Glucose,Whole Blood 125 mg/dL (70-110)
[2023-02-09] MEDS: INSULIN ASPART (NovoLOG) 100 UNIT/ML VIAL SQ SCH ×4 (00:12→17:47)
[2023-02-09 05:57] LABS: Glucose,Whole Blood 101 mg/dL (70-110)
[2023-02-09] MEDS: PANTOPRAZOLE 40 MG/10 ML VIAL IVP SCH (07:35)
[2023-02-09] MEDS: MORPHINE SULFATE 4 MG/ML SYRINGE IV PRN ×3 (07:35→17:01)
[2023-02-09 12:27] LABS: Glucose,Whole Blood 167 mg/dL (70-110)
[2023-02-09 12:49] VITALS: RESP 16
[2023-02-09] MEDS: SODIUM CHLORIDE 0.9% 1,000 ML IV SCH (16:50)
[2023-02-09 17:43] LABS: Glucose,Whole Blood 124 mg/dL (70-110)
--- NOTE | 2023-02-09 19:57 | P.PN ---
Subjective Progress Note Date: 02/09/23 62-year-old female past medical history significant for T2DM, HTN, HLD, nicotine dependence- who presented to the ED with persistent rectal pain that progressed into her upper abdomen. Patient had presented to the ER 4 days prior with rectal pain and discharged home. [place] constipated at work, went home, took some laxatives, and had a near syncopal spell. Developed increased pressure with a couple tiny BMs, pressure resolved. Developed nausea and vomiting. Pain further progressing from mid epigastric/bilateral upper abdomen into her right shoulder. Patient has now had a prior colonoscopy. She picked up her [employer] kit last week, but was unable to proceed with that as she reports rectal bleed ing. Denies alcohol use .Reports she has cutback her cigarette smoking to 5 cigarettes per day. Denies weight loss. WBC 17.5, hemoglobin 15.7, platelet count 219, sodium 136, potassium 4.6 BUN 19 creatinine 0.59, glucose 135, total bili 0.7 AST 88 ALT 103 alkaline phosphatase 289, lipase 68. Patient is status post colonoscopy with biopsy and snare polypectomy 3-4 cm ulcerated lesion in the distal rectum extending up to dentate line consistent with neoplasm status post multiple biopsies 1 cm mid rectal polyp status post polypectomy 2.5 cm rectosigmoid polyp status post polypectomy Patient continues to report uncontrolled pain; we will start patient on [place] 10 mg by mouth 4 times a day when necessary; patient can be discharged home with outpatient follow-up with medical oncology and GI once pain control is optimal Objective - Vital Signs Vital signs: Vital Signs Temp 98.5 F 02/09/23 08:05 Pulse 76 02/09/23 08:05 Resp 18 02/09/23 08:05 BP 117/67 02/09/23 08:05 Pulse Ox 93 L 02/09/23 08:05 FiO2 Intake & Output 02/08/23 02/09/23 02/09/23 18:59 06:59 18:59 Intake Total 200 Balance 200 Intake: IV 200 Other: Voiding Method Toilet Toilet Toilet # Voids 2 # Bowel Movements 2 - Exam General: well nourished, well developed, NAD. Vitals reviewed Eyes: PERRL, EOMI, conjunctiva normal HENT: normocephalic Neck: supple, no JVD Lungs: normal respiratory effort, minimal expiratory wheeze CV: Regular rate and rhythm, no murmur. Peripheral pulses 2+ Abdomen: soft, nondistended, mid epigastric tenderness , no guarding, no rigidity positive bowel sounds Skin: warm and dry. Neuro: A&Ox3, normal mood and affect - Labs CBC & Chem 7: 02/07/23 11:56 02/07/23 11:56 Labs: Abnormal Lab Results - Last 24 Hours (Table) 02/08/23 Range/Units 23:53 POC Glucose (mg/dL) 125 H (70-110) mg/dL Assessment and Plan Assessment: Rectal and abdominal pain, CT reporting liver masses, consistent for metastatic disease, rectal mass suspicious for malignancy Moderate constipation T2DM HTN Plan: Continue on current medication regime ,monitoring and symptomatic treatment. Gentle IV fluid hydration. Colonoscopy pending. Prognosis guarded given multiple complex medical issues.
[2023-02-10 00:14] LABS: Glucose,Whole Blood 179 mg/dL (70-110)
[2023-02-10] MEDS: MORPHINE SULFATE 4 MG/ML SYRINGE IV PRN (00:24)
[2023-02-10] MEDS: INSULIN ASPART (NovoLOG) 100 UNIT/ML VIAL SQ SCH ×3 (00:24→12:23)
[2023-02-10] MEDS: SODIUM CHLORIDE 0.9% 1,000 ML IV SCH (00:28)
[2023-02-10 06:04] LABS: Glucose,Whole Blood 137 mg/dL (70-110)
[2023-02-10] MEDS: HYDROcodone/APAP 7.5-325MG 1 EACH TAB PO PRN ×2 (08:11→13:59)
[2023-02-10] MEDS: PANTOPRAZOLE 40 MG/10 ML VIAL IVP SCH (08:11)
[2023-02-10 08:15] VITALS: BP 147/69; PULSE 84; TEMP 98.4
[2023-02-10 12:21] LABS: Glucose,Whole Blood 128 mg/dL (70-110)
== END 2023-02-10 14:48 | disposition home or self-care (01) | DRG 375 ==
LOC: EC 11:50 → 5NMEDONC 15:21 → OBSVTOIN 02-08 15:02
PROVIDERS: ADMIT Family Medicine; ATTEND Family Medicine
PROC: 0DBN8ZX Excision of Sigmoid Colon, Via Natural or Artificial Opening Endoscopic, Diagnostic (ICD-10-PCS; principal; 2023-02-08 15:30)
PROC: 0DBP8ZX Excision of Rectum, Via Natural or Artificial Opening Endoscopic, Diagnostic (ICD-10-PCS; principal; 2023-02-08 15:30)
DX: C20 Malignant neoplasm of rectum (principal); B17.9 Acute viral hepatitis, unspecified; C78.7 Secondary malignant neoplasm of liver and intrahepatic bile duct; Z28.310 Unvaccinated for COVID-19; Z28.21 Immunization not carried out because of patient refusal; D37.5 Neoplasm of uncertain behavior of rectum; D12.5 Benign neoplasm of sigmoid colon; F17.210 Nicotine dependence, cigarettes, uncomplicated; I10 Essential (primary) hypertension; E78.5 Hyperlipidemia, unspecified; Z79.4 Long term (current) use of insulin; Z79.899 Other long term (current) drug therapy; Z90.710 Acquired absence of both cervix and uterus; K59.00 Constipation, unspecified; Z88.0 Allergy status to penicillin; Z88.2 Allergy status to sulfonamides; Z88.8 Allergy status to other drugs, medicaments and biological substances
CPT/HCPCS: 36415; 45380; 45385; 71260; 74177; 80053; 80074; 82105; 82378; 83036; 83690; 85025; 85027; 88305; 88341; 88342; 93005; 96361; 96374; 96375; 99285

== ENCOUNTER 2023-04-18 09:53 | Day surgery (SDC) | payer BC ==
[2023-04-18 10:23] VITALS: BP 133/63; PULSE 91; RESP 18; TEMP 98.2
[2023-04-18 10:27] LABS: Glucose,Whole Blood 259 mg/dL (70-110)
[2023-04-18] MEDS: LIDOCAINE 2% (PF) 20 MG/ML 5 ML VIAL SQ ONE (11:00)
--- NOTE | 2023-04-18 11:17 | P.OP ---
Date of Procedure: 04/18/23 Description of Procedure: Preoperative Diagnosis: Need for long-term IV access, chemotherapy, rectal cancer Postoperative Diagnosis: Same. Procedure(s) Performed: Ultrasound-guided cannulation left basilic vein. Insertion of peripherally inserted central catheter under fluoroscopic guidance. Anesthesia: local 1% lidocaine plain Surgeon: Octavia Estimated Blood Loss (ml): 5 IV fluids (ml): 0 Urine output (ml): 0 Pathology: none sent Condition: stable Disposition: no change Indications for Procedure: Patient requires long-term IV chemotherapy as an outpatient patient is offered a PICC line to allow for intravenous administration. Description of Procedure: Patient was brought to the special procedure suite. The left upper extremity sterilely prepped and draped in usual manner. Ultrasound was utilized to identify the basilic vein which was normally compressible free of visible thrombus. Permenant image was stored. 1% Xylocaine was utilized for local anesthesia tissues overlying the vein. Through this anesthetized area and with the aid of ultrasound a micropuncture needle was utilized to cannulate the vein. Once cannulated, Softip guidewire was advanced into the vein. The needle was withdrawn and a micropuncture sheath and dilator advanced over the guidewire. The guidewire was withdrawn and exchanged for the PICC guidewire and measured 35 cm to the cavoatrial junction. The catheter was cut to size and advanced into the cavoatrial junction without resistance. The sheath was peeled away. Blood was easily withdrawn through the catheter and the catheter was then flushed with heparinized saline solution and secured to the skin. Patient tolerated procedure well and was returned to their room in satisfactory and stable condition.
[2023-04-18 11:47] LABS: African American GFR (CKD) >90 (>60 ml/min/1.73 sqM); Anion Gap 3 mmol/L; Blood Urea Nitrogen 19 mg/dL (7-17); Carbon Dioxide 27 mmol/L (22-30); Chloride 105 mmol/L (98-107); Non-African American GFR(CKD) >90 (>60 ml/min/1.73 sqM); Potassium 4.2 mmol/L (3.5-5.1); Sodium 135 mmol/L (137-145)
== END 2023-04-18 11:40 | disposition home or self-care (01) ==
LOC: CATHCVL 09:53
PROVIDERS: ATTEND Surgery
DX: Z45.2 Encounter for adjustment and management of vascular access device (principal); C20 Malignant neoplasm of rectum; Z88.0 Allergy status to penicillin; Z88.2 Allergy status to sulfonamides; Z88.8 Allergy status to other drugs, medicaments and biological substances; Z87.891 Personal history of nicotine dependence; Z79.899 Other long term (current) drug therapy; Z79.4 Long term (current) use of insulin; Z80.9 Family history of malignant neoplasm, unspecified
CPT/HCPCS: 80051; 82565; 84520; 36573; C1751; C1769; J2001

== ENCOUNTER 2023-05-07 16:55 | Observation (INO) | payer BC ==
[2023-05-07 17:12] VITALS: TEMP 98
--- NOTE | 2023-05-07 17:14 | ED ---
General Adult HPI - General Chief complaint: Altered Mental Status Stated complaint: AMS,Vomiting-CA Liver PT Time Seen by Provider: 05/07/23 17:00 Source: patient, EMS, RN notes reviewed Mode of arrival: EMS Limitations: no limitations, altered mental status - History of Present Illness Initial comments: Patient is a pleasant 62-year-old female presenting to the emergency department for weakness. Patient reportedly was found on the ground. Patient denies any injury. Patient admits to feeling terrible and weak. Patient feels weak all over. Patient has been vomiting. Patient has stage IV cancer. Patient states she is on chemotherapy for this. Patient states this is on her rectum and sacral area. Patient also believes she has liver disease. - Related Data Home Medications Medication Instructions Recorded Confirmed Atorvastatin [Lipitor] 20 mg PO DAILY 02/28/22 05/02/23 Insulin Degludec [Tresiba 12 units SQ HS 02/28/22 05/02/23 Flextouch U-200 Pen] lisinopriL [Prinivil] 10 mg PO DAILY 02/28/22 05/02/23 Albuterol Sulfate [Albuterol 1 - 2 puff PO RT-Q6H PRN 02/06/23 05/02/23 Sulfate Hfa] Previous Rx's Medication Instructions Recorded HYDROcodone/APAP 7.5-325MG [Braxton 1 each PO Q6HR PRN 3 Days #12 tab 02/10/23 7.5-325] Allergies Allergy/AdvReac Type Severity Reaction Status Date / Time Penicillins Allergy Anaphylaxis Verified 05/02/23 08:00 & Hives Sulfa (Sulfonamide Allergy Anaphylaxis Verified 05/02/23 08:00 Antibiotics) & Hives steroids Allergy Diarrhea Uncoded 05/02/23 08:00 Review of Systems ROS Statement: Those systems with pertinent positive or pertinent negative responses have been documented in the HPI. ROS Other: All systems not noted in ROS Statement are negative. Constitutional: Denies: fever Eyes: Denies: eye pain Respiratory: Denies: dyspnea Cardiovascular: Denies: chest pain Endocrine: Reports: fatigue Gastrointestinal: Reports: nausea, vomiting. Denies: abdominal pain Past Medical History Past Medical History: Cancer, Diabetes Mellitus, Hyperlipidemia, Hypertension Additional Past Medical History / Comment(s): liver ca History of Any Multi-Drug Resistant Organisms: None Reported Past Surgical History: Hysterectomy Past Anesthesia/Blood Transfusion Reactions: No Reported Reaction Past Psychological History: No Psychological Hx Reported Smoking Status: Current every day smoker - Past Family History Mother Family Medical History: CVA/TIA Father Family Medical History: Cancer General Exam Limitations: no limitations, altered mental status General appearance: alert Head exam: Present: normocephalic Eye exam: Present: normal appearance ENT exam: Present: normal oropharynx Neck exam: Present: normal inspection Respiratory exam: Present: rales Cardiovascular Exam: Present: regular rate, normal rhythm GI/Abdominal exam: Present: soft. Absent: distended, tenderness Extremities exam: Present: normal inspection Neurological exam: Present: alert Psychiatric exam: Present: flat affect Skin exam: Present: normal color Course Vital Signs 05/07/23 05/07/23 05/07/23 16:59 17:11 17:26 Temperature 98 F 98 F Pulse Rate 101 H 97 Respiratory 26 H 26 H 24 Rate Blood Pressure 87/47 98/58 O2 Sat by Pulse 92 L 96 Oximetry 05/07/23 05/07/23 17:42 18:46 Temperature Pulse Rate 102 H 93 Respiratory 100 H 20 Rate Blood Pressure 102/51 93/49 O2 Sat by Pulse 100 100 Oximetry EKG Findings - EKG Results: EKG: interpreted by ERMD (Right axis. Nonspecific ST-T. Incomplete right bundle branch block.), sinus rhythm EKG shows: tachycardia Medical Decision Making - Medical Decision Making Was pt. sent in by a medical professional or institution (JEFF Cruz, [employer], urgent care, hospital, or group home...) When possible be specific @ -No Did you speak to anyone other than the patient for history (EMS, parent, family, police, friend...)? What history was obtained from this source @ - Did you review nursing and triage notes (agree or disagree)? Why? @ -I reviewed and agree with nursing and triage notes Were old charts reviewed (outside hosp., previous admission, EMS record, old EKG, old radiological studies, urgent care reports/EKG's, group home records)? Report findings @ -Previous labs reviewed Differential Diagnosis (chest pain, altered mental status, abdominal pain women, abdominal pain men, vaginal bleeding, weakness, fever, dyspnea, syncope, headache, dizziness, GI bleed, back pain, seizure, CVA, palpatations, mental health, musculoskeletal)? @ -Differential Weakness: Hypoglycemia, shock, sepsis, hyponatremia, anemia, infection, NH, ETOH, adverse medicine reaction, overdose, stroke, this is not meant to be an all-inclusive list. EKG interpreted by me (3pts min.). @ -As above X-rays interpreted by me (1pt min.). @ -Chest and abdominal x-ray shows no acute process CT interpreted by me (1pt min.). @ -None done U/S interpreted by me (1pt. min.). @ -None done What testing was considered but not performed or refused? (CT, X-rays, U/S, labs)? Why? @ -None What meds were considered but not given or refused? Why? @ -Consider pressors however blood pressure has improved. Did you discuss the management of the patient with other professionals (virginia montez i.e. , PA, [employer], lab, RT, psych nurse, 7th grade social studies teacher, beater lead, teacher, police patrol officer, patient case manager)? Give summary @ -Case was discussed with Dr. Shen, who will admit his patient. Was smoking cessation discussed for >3mins.? @ -No Was critical care preformed (if so, how long)? @ -No Were there social determinants of health that impacted care today? How? (Homelessness, low income, unemployed, alcoholism, drug addiction, transportation, low edu. Level, literacy, decrease access to med. care, nursing home, rehab)? @ -No Was there de-escalation of care discussed even if they declined (Discuss DNR or withdrawal of care, Hospice)? DNR status @ -No What co-morbidities impacted this encounter? (DM, HTN, Smoking, COPD, CAD, Cancer, CVA, ARF, Chemo, Hep., AIDS, mental health diagnosis, sleep apnea, morbid obesity)? @ -Stage IV rectal cancer Was patient admitted / discharged? Hospital course, mention meds given and route, prescriptions, significant lab abnormalities, going to OR and other pertinent info. @ - Patient reevaluated. Patient and family updated on results and plan. Ella ent presents with dehydration feeling much better with systolic blood pressure of 93 after fluids. Patient will be admitted with continued IV fluids and oncology consult Undiagnosed new problem with uncertain prognosis? @ -No Drug Therapy requiring intensive monitoring for toxicity (Heparin, Nitro, Insulin, Cardizem)? @ -No Were any procedures done? @ -No Diagnosis/symptom? @ -Hypotension Acute, or Chronic, or Acute on Chronic? @ -Acute Uncomplicated (without systemic symptoms) or Complicated (systemic symptoms)? @ -Default Side effects of treatment? @ -No Exacerbation, Progression, or Severe Exacerbation? @ -No Poses a threat to life or bodily function? How? (Chest pain, USA, NH, pneumonia, PE, COPD, DKA, ARF, appy, cholecystitis, CVA, Diverticulitis, Homicidal, Suicidal, threat to staff... and all critical care pts) @ -Potential threat to organ function - Lab Data Result diagrams: 05/07/23 17:10 05/07/23 17:10 Lab Results 05/07/23 05/07/23 05/07/23 Range/Units 17:10 17:10 17:10 WBC 5.5 (3.8-10.6) k/uL RBC 3.28 L (3.80-5.40) m/uL Hgb 10.8 L (11.4-16.0) gm/dL Hct 31.4 L (34.0-46.0) % MCV 96.0 (80.0-100.0) fL MCH 33.0 (25.0-35.0) pg MCHC 34.4 (31.0-37.0) g/dL RDW 16.0 H (11.5-15.5) % Plt Count 155 (150-450) k/uL MPV 7.8 Neutrophils % 68 % Lymphocytes % 28 % Monocytes % 1 % Eosinophils % 0 % Basophils % 0 % Neutrophils # 3.8 (1.3-7.7) k/uL Lymphocytes # 1.6 (1.0-4.8) k/uL Monocytes # 0.1 (0-1.0) k/uL Eosinophils # 0.0 (0-0.7) k/uL Basophils # 0.0 (0-0.2) k/uL PT 11.2 (10.0-12.5) sec INR 1.0 (<1.2) APTT 20.0 L (22.0-30.0) sec Sodium 136 L (137-145) mmol/L Potassium 3.9 (3.5-5.1) mmol/L Chloride 107 (98-107) mmol/L Carbon Dioxide 20 L (22-30) mmol/L Anion Gap 9 mmol/L BUN 39 H (7-17) mg/dL Creatinine 1.25 H (0.52-1.04) mg/dL Est GFR (CKD-EPI)AfAm 54 (>60 ml/min/1.73 sqM) Est GFR (CKD-EPI)NonAf 47 (>60 ml/min/1.73 sqM) Glucose 192 H (74-99) mg/dL Plasma Lactic Acid Cheo (0.7-2.0) mmol/L Calcium 8.4 (8.4-10.2) mg/dL Magnesium 1.7 (1.6-2.3) mg/dL Total Bilirubin 0.5 (0.2-1.3) mg/dL AST 25 (14-36) U/L ALT 28 (4-34) U/L Alkaline Phosphatase 236 H (38-126) U/L Total Protein 5.5 L (6.3-8.2) g/dL Albumin 3.3 L (3.5-5.0) g/dL TSH 10.100 H (0.465-4.680) mIU/L 05/07/23 Range/Units 17:10 WBC (3.8-10.6) k/uL RBC (3.80-5.40) m/uL Hgb (11.4-16.0) gm/dL Hct (34.0-46.0) % MCV (80.0-100.0) fL MCH (25.0-35.0) pg MCHC (31.0-37.0) g/dL RDW (11.5-15.5) % Plt Count (150-450) k/uL MPV Neutrophils % % Lymphocytes % % Monocytes % % Eosinophils % % Basophils % % Neutrophils # (1.3-7.7) k/uL Lymphocytes # (1.0-4.8) k/uL Monocytes # (0-1.0) k/uL Eosinophils # (0-0.7) k/uL Basophils # (0-0.2) k/uL PT (10.0-12.5) sec INR (<1.2) APTT (22.0-30.0) sec Sodium (137-145) mmol/L Potassium (3.5-5.1) mmol/L Chloride (98-107) mmol/L Carbon Dioxide (22-30) mmol/L Anion Gap mmol/L BUN (7-17) mg/dL Creatinine (0.52-1.04) mg/dL Est GFR (CKD-EPI)AfAm (>60 ml/min/1.73 sqM) Est GFR (CKD-EPI)NonAf (>60 ml/min/1.73 sqM) Glucose (74-99) mg/dL Plasma Lactic Acid Cheo 3.2 H* (0.7-2.0) mmol/L Calcium (8.4-10.2) mg/dL Magnesium (1.6-2.3) mg/dL Total Bilirubin (0.2-1.3) mg/dL AST (14-36) U/L ALT (4-34) U/L Alkaline Phosphatase (38-126) U/L Total Protein (6.3-8.2) g/dL Albumin (3.5-5.0) g/dL TSH (0.465-4.680) mIU/L Disposition Clinical Impression: Dehydration, Hypotensive episode Disposition: ADMITTED IP TO THIS HOSP Is patient prescribed a controlled substance at d/c from ED?: No Referrals: King Shen MD [Primary Care Provider] - 1-2 days Time of Disposition: 19:22
[2023-05-07] MEDS: SODIUM CHLORIDE 0.9% 1,000 ML IV STA (17:28)
[2023-05-07 17:41] LABS: Basophils % (A) 0 %; Eosinophils % (A) 0 %; HCT 31.4 % (34.0-46.0); HGB 10.8 gm/dL (11.4-16.0); Lymphocytes # (A) 1.6 k/uL (1.0-4.8); Lymphocytes % (A) 28 %; MCHC 34.4 g/dL (31.0-37.0); Mean Platelet Volume 7.8; Monocytes # (A) 0.1 k/uL (0-1.0); Monocytes % (A) 1 %; Neutrophils # (A) 3.8 k/uL (1.3-7.7); Neutrophils % (A) 68 %; Platelet Count 155 k/uL (150-450); RBC 3.28 m/uL (3.80-5.40); WBC 5.5 k/uL (3.8-10.6)
[2023-05-07 18:02] LABS: Prothrombin Time 11.2 sec (10.0-12.5)
--- NOTE | 2023-05-07 18:03 | XR ---
EXAMINATION TYPE: XR chest 1V portable DATE OF EXAM: 05/07/2023 5:37 PM CLINICAL INDICATION:Female, 62 years old with history of cough; PH[facility] COMPARISON: Chest radiographs from 02/28/2022 TECHNIQUE: XR chest 1V portable Frontal view of the chest. FINDINGS: Lungs/Pleura: There is no evidence of pleural effusion, focal consolidation, or pneumothorax. Pulmonary vascularity: Unremarkable. Heart/mediastinum: Cardiomediastinal silhouette is unremarkable. Musculoskeletal: No acute osseous pathology. Other findings: None Lines/Tubes: Left-sided PICC with distal tip at the superior vena cava/brachiocephalic confluence. IMPRESSION: No acute cardiopulmonary disease/process.
--- NOTE | 2023-05-07 18:08 | XR ---
EXAMINATION TYPE: XR abdomen 1V DATE OF EXAM: 05/07/2023 5:37 PM CLINICAL INDICATION:Female, 62 years old with history of abp; PH[facility] COMPARISON: None. TECHNIQUE: One radiographic view of the abdomen was obtained. FINDINGS: The bowel gas pattern is nonspecific without dilated loops of small or large bowel. There i s no evidence for organomegaly or pneumoperitoneum. The osseous structures are intact. No abnormal calcifications are present. Fecal material and gas are demonstrated throughout the colon and rectum. IMPRESSION: Nonspecific bowel gas pattern without radiographic evidence for acute process.
[2023-05-07 18:09] LABS: ALT 28 U/L (4-34); AST 25 U/L (14-36); African American GFR (CKD) 54 (>60 ml/min/1.73 sqM); Albumin 3.3 g/dL (3.5-5.0); Alkaline Phosphatase 236 U/L (38-126); Anion Gap 9 mmol/L; Blood Urea Nitrogen 39 mg/dL (7-17); Calcium 8.4 mg/dL (8.4-10.2); Carbon Dioxide 20 mmol/L (22-30); Chloride 107 mmol/L (98-107); Glucose 192 mg/dL (74-99); Magnesium 1.7 mg/dL (1.6-2.3); Non-African American GFR(CKD) 47 (>60 ml/min/1.73 sqM); Potassium 3.9 mmol/L (3.5-5.1); Sodium 136 mmol/L (137-145); Total Bilirubin 0.5 mg/dL (0.2-1.3); Total Protein 5.5 g/dL (6.3-8.2)
[2023-05-07] MEDS ORDERED: ONDANSETRON 4 MG/2 ML VIAL IVP PRN (19:22)
[2023-05-07] MEDS ORDERED: ACETAMINOPHEN TAB 325 MG TAB PO PRN (19:22)
[2023-05-07] MEDS ORDERED: NALOXONE 0.4 MG/ML 1 ML VIAL IV PRN (19:22)
[2023-05-07] MEDS ORDERED: SODIUM CHLORIDE 0.9% 1,000 ML IV SCH (19:30)
[2023-05-07 19:37] VITALS: BP 95/53; PULSE 89; RESP 16
[2023-05-07] MEDS: SODIUM CHLORIDE 0.9% 500 ML IV SCH (19:37)
[2023-05-07] MEDS: PANTOPRAZOLE 40 MG/10 ML VIAL IV SCH (19:40)
== END 2023-05-07 20:55 | disposition left against medical advice (07) ==
LOC: EC 16:55 → 5NMEDONC 19:25
PROVIDERS: ADMIT Family Medicine; ATTEND Family Medicine
DX: E86.0 Dehydration (principal); I95.9 Hypotension, unspecified; C20 Malignant neoplasm of rectum; C22.9 Malignant neoplasm of liver, not specified as primary or secondary; I10 Essential (primary) hypertension; R41.82 Altered mental status, unspecified; R11.10 Vomiting, unspecified; F17.200 Nicotine dependence, unspecified, uncomplicated; Z53.29 Procedure and treatment not carried out because of patient's decision for other reasons; Z79.4 Long term (current) use of insulin; Z79.899 Other long term (current) drug therapy; Z88.0 Allergy status to penicillin; Z88.2 Allergy status to sulfonamides; Z88.8 Allergy status to other drugs, medicaments and biological substances
CPT/HCPCS: 96361; 96374; 99285; 36415; 93005; 80053; 83605; 83735; 84443; 85025; 85610; 85730; 71045; 74018; G0378; C9113

== ENCOUNTER → 2023-05-24 | Outpatient (CLI) | payer BC ==
[2023-05-24 13:50] LABS: African American GFR (CKD) 86 (>60 ml/min/1.73 sqM); Blood Urea Nitrogen 15 mg/dL (7-17); Non-African American GFR(CKD) 74 (>60 ml/min/1.73 sqM)
--- NOTE | 2023-05-25 15:03 | CT ---
EXAMINATION TYPE: CT ChestAbdPelvis w con CT DLP: 668.6 mGycm, Automated exposure control for dose reduction was used. DATE OF EXAM: 05/25/2023 6:18 AM COMPARISON: CT chest 02/07/2023, CT abdomen and pelvis 02/06/2023 CLINICAL INDICATION:Female, 62 years old with history of C20 MALIGNANT NEOPLASM OF RECTUM; PHH, Recta l Cancer TECHNIQUE: Multiple axial images of the chest, abdomen, and pelvis were obtained. Two-dimensional cor onal and sagittal reconstructions were obtained. Contrast used:100 mL of Isovue 300 with IV Contrast, Oral contrast used: with Oral Contrast FINDINGS: CHEST: LUNGS/ PLEURA: In the right lower lobe image 44 there is a stable 5 mm subpleural groundglass nodular focus, stable. Another tiny nodule seen before in this lobe posteriorly is not identified on the cur rent scan. Left lung is stable with no clinically significant nodules. Mild/moderate emphysematous ch anges bilaterally upper lobe predominant. No lung consolidation, pleural effusion, or pneumothorax. S cattered linear and reticular opacities in the mid to lower lungs bilaterally, likely scarring and moss bsegmental atelectasis. AIRWAY: Central airways are patent. LOWER NECK: No significant findings. Visualized thyroid is unremarkable. MEDIASTINUM: No enlarged mediastinal or hilar nodes.. HEART: Normal heart size. Mild coronary artery calcification. Moderate calcification mitral valve.. N o appreciable pericardial effusion. VASCULATURE: Mild to moderate atherosclerotic calcifications of the aorta, mostly along the arch. So me irregular mixed plaque of the descending aorta is again noted.. No evidence of aneurysm or dissect ion. Pulmonary trunk measures 2.6 CM. Pulmonary trunk is normal in size. Grossly preserved enhancemen t of the pulmonary arteries, in the limits of non-CTA exam. SOFT TISSUES/LYMPH NODES: No evidence of chest wall mass or enlarged axillary nodes. MUSCULOSKELETAL: No acute osseous abnormalities. No evidence of lytic/blastic lesion. Mild degenerati ve changes of the thoracic spine. OTHER: No other significant finding. ABDOMEN PELVIS: ABDOMEN LIVER: Overall decrease in size number and conspicuity of the diffuse hepatic metastatic lesions. For example a subcapsular lesion in the right lobe is now 1 cm and was 1.6 cm, image 65 series 4. Anothe r lesion in the left lobe image 50 is now 1.1 cm and was 1.8 cm. Other examples are possible. No new or enlarging hepatic lesions. GALLBLADDER AND BILE DUCTS: Gallbladder appears at least partially contracted. There could be small n early isodense gallstones. No pericholecystic inflammatory changes. No suggestion of biliary dilatati on. PANCREAS: Unremarkable. SPLEEN: Unremarkable. ADRENAL GLANDS: Stable. Unchanged 8 mm left adrenal nodule. KIDNEYS AND URETERS: Kidneys enhance symmetrically. No evidence of mass or hydronephrosis. No visible calculi. PELVIS BLADDER: Unremarkable REPRODUCTIVE: Uterus is present, not well assessed by CT. Ovaries are not readily identified. No pelv ic mass is suggested. ABDOMEN & PELVIS STOMACH AND BOWEL: Stomach and duodenum are fairly distended with contrast material and show no signi ficant abnormality. A gas and contrast-containing structure projecting anterior to the right kidney i s again noted, likely duodenal diverticulum. Contrast traverses more distal small bowel loops without evidence of obstruction. Contrast is reaching the right colon. Fatty infiltration of the ileocecal v alve. The appendix appears normal. There is moderate stool throughout the colon, greatest proximally. The more distal colon is nondistended and not well assessed. The appearance of some irregular thicke linda of the upper to mid rectal wall has not changed significantly, likely represents primary neoplas m. Some haziness of the perirectal fat again noted without discrete nodule evident. PERITONEUM/RETROPERITONEUM: No evidence of pneumoperitoneum or free fluid. No visible intraperitoneal metastatic deposits. VASCULATURE: Overall moderate mixed atherosclerotic plaque throughout the aorta and branches without significant narrowing of the branch vessels within the abdomen. There is no AAA. Bifurcation is paten t with mild to moderate narrowing of the iliac arteries. IVC is of normal caliber. Renal veins are pa tent. Portal vein and splenic vein are enhancing. MUSCULOSKELETAL: No acute bony normality. Mild/moderate degenerative changes of the lumbar spine with trace anterolisthesis L5 on S1, posterior disc bulging at this level causes moderate to severe left and severe right neural foraminal stenosis. Mild canal stenosis at this and multiple levels. Mild meena ateral hip arthropathy. Small sclerotic foci in the right femoral head unchanged, likely bone islands . LYMPH NODES: No enlarged nodes by CT criteria. SOFT TISSUES/ABDOMINAL WALL: Stable. OTHER: No other significant finding. IMPRESSION: 1. No evidence of metastatic disease to the chest. 2. Similar appearance of irregular rectal wall thickening, likely corresponding to primary neoplasm. 3. Interval decrease in size, number, and conspicuity of the diffuse hepatic metastases. No new lesi on evident. 4. Otherwise stable exam, without evidence of new or progressive metastatic disease.
== END | disposition home or self-care (01) ==
LOC: RADCTMAIN 13:10
PROVIDERS: ATTEND Internal Medicine
DX: C78.7 Secondary malignant neoplasm of liver and intrahepatic bile duct (principal); C20 Malignant neoplasm of rectum; K62.89 Other specified diseases of anus and rectum; E11.9 Type 2 diabetes mellitus without complications; M12.9 Arthropathy, unspecified; G40.909 Epilepsy, unspecified, not intractable, without status epilepticus
CPT/HCPCS: 82565; 84520; 71260; 74177; 36415; Q9967

== ENCOUNTER → 2023-08-13 | Outpatient (CLI) | payer BC ==
[2023-08-13 10:36] LABS: African American GFR (CKD) >90 (>60 ml/min/1.73 sqM); Blood Urea Nitrogen 18 mg/dL (7-17); Non-African American GFR(CKD) >90 (>60 ml/min/1.73 sqM)
--- NOTE | 2023-08-13 15:21 | CT ---
EXAMINATION TYPE: CT ChestAbdPelvis w con CT DLP: 1399 mGycm, Automated exposure control for dose reduction was used. DATE OF EXAM: 08/13/2023 1:43 PM COMPARISON: CT chest abdomen and pelvis 05/25/2023, CT chest 02/07/2023, CT abdomen and pelvis CLINICAL INDICATION:Female, 63 years old with history of C20 rectal ca; PHH, rectal ca Technique: Multiple axial images of the chest, abdomen, and pelvis were obtained following the intrav enous administration of 100 mL Isovue-300. Oral contrast was administered. Two-dimensional coronal an d sagittal reconstructions were obtained. Findings: CHEST: LUNGS/ PLEURA: Mild centrilobular emphysematous changes. No pleural effusion, pneumothorax, focal con solidation. Stable right lower lobe subpleural 5 mm groundglass nodular focus. No new suspicious pul monary nodules. AIRWAY: Patent and unremarkable.. HEART: Size within normal limits. No pericardial effusion. Mild coronary artery calcifications. Moder ate mitral valve calcification. MEDIASTINUM: No gross evidence of adenopathy. VASCULATURE: No aortic aneurysm. Atherosclerotic calcification of the aorta and its branches. MUSCULOSKELETAL: No acute osseous abnormalities. No aggressive osseous lesion. SOFT TISSUES/LYMPH NODES: Unremarkable. LOWER NECK: No significant findings. ABDOMEN: ABDOMEN LIVER: Overall decrease in size and number and conspicuity of diffuse hypodense hepatic metastatic le sions. Example includes a right hepatic lobe subcapsular lesion measuring 8 mm, previously 10 mm (ser ies 3, image 64). No new or obviously enlarging lesions identified. GALLBLADDER AND BILE DUCTS: Unremarkable. PANCREAS: Unremarkable. SPLEEN: Unremarkable. ADRENAL GLANDS: Right adrenal gland is unremarkable. Stable left adrenal gland 9 mm nodule. Too small to accurately characterize. KIDNEYS AND URETERS: No evidence of hydronephrosis or renal calculus. The kidneys enhance symmetrical ly. PELVIS BLADDER: Unremarkable REPRODUCTIVE: Unremarkable. ABDOMEN & PELVIS STOMACH AND BOWEL: Stomach is unremarkable. Periampullary duodenal diverticulum redemonstrated. Enter ic contrast reaches the splenic flexure. Similar appearance of irregular thickening in the upper to m id rectal wall. Haziness in the perirectal fat again noted. No evidence of bowel obstruction. PERITONEUM/RETROPERITONEUM: No evidence of pneumoperitoneum or free fluid. No metastatic deposits jonh ntified. VASCULATURE: Moderate atherosclerotic calcifications are present throughout the abdominal aorta and i ts branches. No abdominal aortic aneurysm. MUSCULOSKELETAL: No acute osseous abnormalities. No aggressive osseous lesion. LYMPH NODES: No gross evidence for lymphadenopathy. SOFT TISSUE/ABDOMINAL WALL: Unremarkable IMPRESSION: 1. Overall similar appearance of irregular rectal wall thickening corresponding to reported primary n eoplasm. Interval decreased size, number, and conspicuity of diffuse hepatic metastasis. Overall no e vidence of new or progressive metastatic disease. 2. No evidence of metastatic disease within the chest.
== END | disposition home or self-care (01) ==
LOC: RADCTMAIN 10:03
PROVIDERS: ATTEND Internal Medicine
DX: C78.7 Secondary malignant neoplasm of liver and intrahepatic bile duct (principal); C20 Malignant neoplasm of rectum; M12.9 Arthropathy, unspecified; G40.909 Epilepsy, unspecified, not intractable, without status epilepticus; E11.9 Type 2 diabetes mellitus without complications
CPT/HCPCS: 82565; 84520; 71260; 74177; 36415; Q9967

== ENCOUNTER 2023-09-08 13:20 | Inpatient (IN) | payer BC ==
--- NOTE | 2023-09-08 14:02 | ED ---
Nausea/Vomiting/Diarrhea HPI - General Source: patient, RN notes reviewed Mode of arrival: ambulatory Limitations: no limitations - History of Present Illness MD complaint: nausea, vomiting <Orly Guadarrama - Last Filed: 09/08/23 14:01> <Lacho Carreon - Last Filed: 09/08/23 15:52> - General Source: RN notes reviewed, old records reviewed Mode of arrival: ambulatory Limitations: no limitations - History of Present Illness MD complaint: nausea, vomiting, abdominal pain -: days(s) Location: diffuse Radiation: none Severity: severe Severity scale (1-10): 8 <Carrillo Anders - Last Filed: 09/08/23 18:53> - General Chief complaint: Nausea/Vomiting/Diarrhea Stated complaint: back pain,vomiting Time Seen by Provider: 09/08/23 14:01 - History of Present Illness Initial comments: Quick Note: This is a 63-year-old female who presents to the emergency department for nausea and vomiting. Symptoms started 1 week ago. Reports upper abdominal pain from all of the vomiting. Currently has stage IV rectal cancer and follows with Dr. Pathak. She has completed chemotherapy and radiation and is waiting for a follow-up appointment to discuss the plan moving forward. She does take nausea medication at home, however she cannot recall what this is and states that it has not been effective. (Orly Guadarrama) Dictation was produced using [employer] dictation software. please excuse any grammatical, word or spelling errors. 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 Patient states that she is having progressive abdominal pain for the last several weeks. She is told that she had some spots on her liver. Patient Nuys any fever chills or night sweats. States that she has significant pain whenever she tries to take anything orally. Her oncologist is Dr. Pathak. The ROS documented in this emergency department record has been reviewed and confirmed by me. Those systems with pertinent positive or negative responses have been documented in the HPI. All other systems are other negative and/or noncontributory. (Lacho Carreon) This is a 63-year-old female with history of anal anal rectal cancer for significant abdominal pain here in the ER (Carrillo Anders) - Related Data Home Medications Medication Instructions Recorded Confirmed Atorvastatin [Lipitor] 20 mg PO DAILY 02/28/22 09/08/23 Insulin Degludec [Tresiba 12 units SQ DAILY 02/28/22 09/08/23 Flextouch U-200 Pen] lisinopriL [Prinivil] 10 mg PO DAILY 02/28/22 09/08/23 Albuterol Sulfate [Albuterol 1 - 2 puff PO RT-Q6H PRN 02/06/23 09/08/23 Sulfate Hfa] Allergies Allergy/AdvReac Type Severity Reaction Status Date / Time Penicillins Allergy Anaphylaxis Verified 09/08/23 15:44 & Hives Sulfa (Sulfonamide Allergy Anaphylaxis Verified 09/08/23 15:44 Antibiotics) & Hives steroids Allergy Diarrhea Uncoded 09/08/23 15:44 Review of Systems ROS Other: All systems not noted in ROS Statement are negative. <Orly Guadarrama - Last Filed: 09/08/23 14:01> ROS Other: All systems not noted in ROS Statement are negative. <Lacho Carreon - Last Filed: 09/08/23 15:52> ROS Other: All systems not noted in ROS Statement are negative. <Carrillo Anders - Last Filed: 09/08/23 18:53> ROS Statement: Those systems with pertinent positive or pertinent negative responses have been documented in the HPI. Past Medical History Past Medical History: Cancer, Diabetes Mellitus, Hyperlipidemia, Hypertension Additional Past Medical History / Comment(s): rectal ca History of Any Multi-Drug Resistant Organisms: None Reported Past Surgical History: Hysterectomy Past Anesthesia/Blood Transfusion Reactions: No Reported Reaction Past Psychological History: No Psychological Hx Reported Smoking Status: Current every day smoker - Past Family History Mother Family Medical History: CVA/TIA Father Family Medical History: Cancer <Orly Guadarrama - Last Filed: 09/08/23 14:01> General Exam Limitations: no limitations <Orly Guadarrama - Last Filed: 09/08/23 14:01> <Lacho Carreon - Last Filed: 09/08/23 15:52> General appearance: alert, in no apparent distress Head exam: Present: atraumatic, normocephalic, normal inspection Eye exam: Present: normal appearance, PERRL, EOMI. Absent: scleral icterus, conjunctival injection, periorbital swelling ENT exam: Present: normal exam, mucous membranes moist Neck exam: Present: normal inspection. Absent: tenderness, meningismus, lymphadenopathy Respiratory exam: Present: normal lung sounds bilaterally. Absent: respiratory distress, wheezes, rales, rhonchi, stridor Cardiovascular Exam: Present: regular rate, normal rhythm, normal heart sounds. Absent: systolic murmur, diastolic murmur, rubs, gallop, clicks GI/Abdominal exam: Present: soft, normal bowel sounds. Absent: distended, tenderness, guarding, rebound, rigid Extremities exam: Present: normal inspection, full ROM, normal capillary refill. Absent: tenderness, pedal edema, joint swelling, calf tenderness Back exam: Present: normal inspection Neurological exam: Present: alert, oriented X3, CN II-XII intact Psychiatric exam: Present: normal affect, normal mood Skin exam: Present: warm, dry, intact, normal color. Absent: rash <Carrillo Anders B - Last Filed: 09/08/23 18:53> - General Exam Comments Initial Comments: Visual Physical Exam Vital signs reviewed General: Well-appearing, nontoxic, no acute distress. Head: Normocephalic, atraumatic Eyes: PERRLA, EOMI ENT: Airway patent Chest: Nonlabored breathing Skin: No visual rash, normal skin tone Neuro: Alert and oriented 3 Musculoskeletal: No gross abnormalities (Vogley,Orly) PHYSICAL EXAM: General Impression: Alert and oriented x3, mild distress secondary to pain HEENT: Normocephalic atraumatic, extra-ocular movements intact, pupils equal and reactive to light bilaterally, mucous membranes moist. Cardiovascular: Heart regular rate and rhythm Chest: Able to complete full sentences, no retractions, no tachypnea Abdomen: Palpatory abdominal tenderness to the right upper quadrant Musculoskeletal: Pulses present and equal in all extremities, no peripheral edema Motor: no focal deficits noted Neurological: CN II-XII grossly intact, no focal motor or sensory deficits noted Skin: Intact with no visualized rashes Psych: Normal affect and mood (Lacho Carreon) Course <Carrillo Anders - Last Filed: 09/08/23 18:53> Vital Signs 09/08/23 09/08/23 09/08/23 13:39 15:18 15:33 Temperature 98.2 F Pulse Rate 113 H 101 H 92 Respiratory 20 18 16 Rate Blood Pressure 86/45 109/71 101/61 O2 Sat by Pulse 98 97 96 Oximetry 09/08/23 09/08/23 16:48 17:01 Temperature Pulse Rate 82 85 Respiratory 16 16 Rate Blood Pressure 83/51 116/63 O2 Sat by Pulse 97 97 Oximetry - Reevaluation(s) Reevaluation #1: 09/08/23 17:06 Medical records reviewed (Carrillo Anders) Reevaluation #2: 09/08/23 17:06 Patient symptoms improving (Carrillo Anders) Reevaluation #3: 09/08/23 17:06 Patient informed of results questions answered (Carrillo Anders) Medical Decision Making <Orly Guadarrama - Last Filed: 09/08/23 14:01> - Lab Data Result diagrams: 09/08/23 13:43 09/08/23 13:43 <Lacho Carreon - Last Filed: 09/08/23 15:52> - Lab Data Result diagrams: 09/08/23 13:43 09/08/23 13:43 - EKG Data -: EKG Interpreted by Me (EKG is sinus tachycardia 112 OH 132 QRS 89 QTc 379) - Radiology Data Radiology results: report reviewed (CT abdomen pelvis shows cancer progression with severe constipation), image reviewed <Carrillo Anders - Last Filed: 09/08/23 18:53> - Medical Decision Making I performed the QuickNote portion of this chart. Signed Orly Guadarrama PA-C. (Orly Guadarrama) Was pt. sent in by a medical professional or institution ([facility], [facility], urgent care, hospital, or half-way...) When possible be specific @ -No Did you speak to anyone other than the patient for history (EMS, parent, family, police, friend...)? What history was obtained from this source @ -No Did you review nursing and triage notes (agree or disagree)? Why? @ -I reviewed and agree with nursing and triage notes Were old charts reviewed (outside hosp., previous admission, EMS record, old EKG, old radiological studies, urgent care reports/EKG's, half-way records)? Report findings @ -No old charts were reviewed Differential Diagnosis (chest pain, altered mental status, abdominal pain women, abdominal pain men, vaginal bleeding, musculoskeletal, weakness, fever, dyspnea, syncope, headache, dizziness, GI bleed, back pain, seizure, CVA, palpatations, mental health)? @ -Differential Abdominal Pain Women: Appendicitis, Cholecystitis, diverticulosis, ischemic bowel, pancreatitis, hepatitis, UTI, gastroenteritis, AAA, incarcerated hernia, bowel obstruction, constipation, inflammatory bowel, hepatitis, peptic ulcer disease, splenic infarction, perforated viscus, vulvitis, ovarian torsion, PID, kidney stone, placenta abruption, this is not meant to be an all-inclusive list EKG interpreted by me (3pts min.). @ -None done X-rays interpreted by me (1pt min.). @ -None done CT interpreted by me (1pt min.). @ -None done U/S interpreted by me (1pt. min.). @ -None done What testing was considered but not performed or refused? (CT, X-rays, U/S, labs)? Why? @ -None What meds were considered but not given or refused? Why? @ -None Was smoking cessation discussed for >3mins.? @ -No Were there social determinants of health that impacted care today? How? (Homelessness, low income, unemployed, alcoholism, drug addiction, transportation, low edu. Level, literacy, decrease access to med. care, halfway, rehab)? @ -No Was there de-escalation of care discussed even if they declined (Discuss DNR or withdrawal of care, Hospice)? DNR status @ -No What co-morbidities impacted this encounter? (DM, HTN, Smoking, COPD, CAD, Cancer, CVA, ARF, Chemo, Hep., AIDS, mental health diagnosis, sleep apnea, morbid obesity)? @ -None Was patient admitted / discharged? Hospital course, mention meds given and route, prescriptions, significant lab abnormalities, going to OR and other pertinent info. @ -63-year-old cancer patient presents to the ER for acute on chronic worsening abdominal pain. Patient has allegedly a aggressive anal cancer with known spread to the liver and bone. Vital signs upon arrival shows tachycardia 113, blood pressure 86/45. Repeat vitals shows blood pressure 109/71 with a heart rate of 101. Laboratory evaluation obtained. Leukocytosis of 15.1. hemoglobin of 11.2 which is around her baseline. Metabolic panel is unremarkable. CT scan of the abdomen pelvis ordered. Patient care signed out to Dr. Hassan At 4:00 PM Did you discuss the management of the patient with other professionals (professionals i.e. , PA, [facility], lab, RT, psych nurse, social services counselor, finishing inspector, teacher, customs patrol officer, geriatric case manager)? Give summary @ -No Was critical care preformed (if so, how long)? @ -No Undiagnosed new problem with uncertain prognosis? @ -No Drug Therapy requiring intensive monitoring for toxicity (Heparin, Nitro, Insulin, Cardizem)? @ -No Were any procedures done? @ -No Diagnosis/symptom? Acute, or Chronic, or Acute on Chronic? Uncomplicated (without systemic symptoms) or Complicated (systemic symptoms)? @ -Default Side effects of treatment? @ -No Exacerbation, Progression, or Severe Exacerbation? @ -No Poses a threat to life or bodily function? How? (Chest pain, [place], [place], pneumonia, PE, COPD, DKA, ARF, appy, cholecystitis, CVA, Diverticulitis, Homicidal, Suicidal, threat to staff... and all critical care pts) @ -No (Lacho Carreon) 3 female with severe abdominal pain worsening abdominal pain and severe constipation. Patient will admit for bowel regimen and rehydration (Carrillo Anders) - Lab Data Lab Results 09/08/23 09/08/23 09/08/23 Range/Units 13:43 13:43 13:44 WBC 15.1 H (3.8-10.6) k/uL RBC 3.34 L (3.80-5.40) m/uL Hgb 11.2 L (11.4-16.0) gm/dL Hct 33.5 L (34.0-46.0) % MCV 100.5 H D (80.0-100.0) fL MCH 33.4 (25.0-35.0) pg MCHC 33.3 (31.0-37.0) g/dL RDW 13.5 (11.5-15.5) % Plt Count 340 (150-450) k/uL MPV 8.2 Neutrophils % 84 % Lymphocytes % 8 % Monocytes % 5 % Eosinophils % 2 % Basophils % 0 % Neutrophils # 12.6 H (1.3-7.7) k/uL Lymphocytes # 1.2 (1.0-4.8) k/uL Monocytes # 0.7 (0-1.0) k/uL Eosinophils # 0.3 (0-0.7) k/uL Basophils # 0.0 (0-0.2) k/uL Sodium 139 (137-145) mmol/L Potassium 4.6 (3.5-5.1) mmol/L Chloride 106 (98-107) mmol/L Carbon Dioxide 27 (22-30) mmol/L Anion Gap 6 mmol/L BUN 32 H (7-17) mg/dL Creatinine 0.86 (0.52-1.04) mg/dL Est GFR (CKD-EPI)AfAm 85 (>60 ml/min/1.73 sqM) Est GFR (CKD-EPI)NonAf 74 (>60 ml/min/1.73 sqM) Glucose 173 H (74-99) mg/dL Plasma Lactic Acid Cheo 1.4 (0.7-2.0) mmol/L Calcium 9.7 (8.4-10.2) mg/dL Total Bilirubin 0.5 (0.2-1.3) mg/dL AST 70 H (14-36) U/L ALT 53 H (4-34) U/L Alkaline Phosphatase 615 H (38-126) U/L Total Protein 6.4 (6.3-8.2) g/dL Albumin 3.7 (3.5-5.0) g/dL Amylase 47 (30-110) U/L Lipase 89 (23-300) U/L Disposition <Orly Guadarrama - Last Filed: 09/08/23 14:01> <Lacho Carreon - Last Filed: 09/08/23 15:52> Is patient prescribed a controlled substance at d/c from ED?: No Time of Disposition: 17:00 <Carrillo Anders - Last Filed: 09/08/23 18:53> Clinical Impression: Rectal mass, Abdominal pain, Rectal pain, Dehydration, Constipation Disposition: ADMITTED IP TO THIS HOSP Condition: Fair
[2023-09-08 14:09] LABS: Basophils % (A) 0 %; Eosinophils # (A) 0.3 k/uL (0-0.7); Eosinophils % (A) 2 %; HCT 33.5 % (34.0-46.0); HGB 11.2 gm/dL (11.4-16.0); Lymphocytes # (A) 1.2 k/uL (1.0-4.8); Lymphocytes % (A) 8 %; MCH 33.4 pg (25.0-35.0); MCHC 33.3 g/dL (31.0-37.0); Mean Platelet Volume 8.2; Monocytes # (A) 0.7 k/uL (0-1.0); Monocytes % (A) 5 %; Neutrophils # (A) 12.6 k/uL (1.3-7.7); Neutrophils % (A) 84 %; Platelet Count 340 k/uL (150-450); RBC 3.34 m/uL (3.80-5.40); RDW 13.5 % (11.5-15.5); WBC 15.1 k/uL (3.8-10.6)
[2023-09-08 14:14] LABS: MCV 100.5 fL (80.0-100.0)
[2023-09-08 14:17] LABS: ALT 53 U/L (4-34); AST 70 U/L (14-36); African American GFR (CKD) 85 (>60 ml/min/1.73 sqM); Albumin 3.7 g/dL (3.5-5.0); Alkaline Phosphatase 615 U/L (38-126); Amylase 47 U/L (30-110); Anion Gap 6 mmol/L; Blood Urea Nitrogen 32 mg/dL (7-17); Calcium 9.7 mg/dL (8.4-10.2); Carbon Dioxide 27 mmol/L (22-30); Chloride 106 mmol/L (98-107); Glucose 173 mg/dL (74-99); Lipase 89 U/L (23-300); Non-African American GFR(CKD) 74 (>60 ml/min/1.73 sqM); Potassium 4.6 mmol/L (3.5-5.1); Sodium 139 mmol/L (137-145); Total Bilirubin 0.5 mg/dL (0.2-1.3); Total Protein 6.4 g/dL (6.3-8.2)
[2023-09-08] MEDS: HYDROmorphone 1 MG/ML 1 ML SYRINGE IVP STA (15:20)
--- NOTE | 2023-09-08 16:13 | CT ---
EXAMINATION TYPE: CT ChestAbdPelvis w con CT DLP: 690.8 mGycm, Automated exposure control for dose reduction was used. DATE OF EXAM: 09/08/2023 3:50 PM COMPARISON: 02/06/2023, 05/24/2023. CLINICAL INDICATION:Female, 63 years old with history of abdominal pain, CA, Stage 4 rectal ca with n ausea vomiting, luq abd pain with tightness. sob with exertion. Technique: CT ChestAbdPelvis w con; Multiple axial images were obtained. Two-dimensional coronal and sagittal reconstructions were obtained. Contrast used:100 ml mL of Isovue 300 with IV Contrast, Oral contrast used: without Oral Contrast Findings: CHEST: LUNGS/ PLEURA: No focal consolidation, pneumothorax or pleural effusion. Stable right lower lobe nodu lar density series 201 image 38 AIRWAY: Patent and unremarkable. HEART: Size within normal limits. MEDIASTINUM: No gross evidence of adenopathy. VASCULATURE: No aortic aneurysm. MUSCULOSKELETAL: No acute osseous abnormalities. SOFT TISSUES/LYMPH NODES: Unremarkable. LOWER NECK: No significant findings. ABDOMEN: ABDOMEN LIVER: Innumerable metastatic foci throughout the liver. Comparison is to 05/24/2023 is somewhat limit ed due to phase of contrast on most recent 08/13/2023 exam also is difficult to measure sizes of these lesions. Overall however it is felt to there is progression of the lesions size and number. GALLBLADDER AND BILE DUCTS: Unremarkable. PANCREAS: Unremarkable. SPLEEN: Unremarkable. ADRENAL GLANDS: Unremarkable. KIDNEYS AND URETERS: No evidence of hydronephrosis or renal calculus. The ureters are unremarkable. PELVIS BLADDER: Unremarkable REPRODUCTIVE: Unremarkable. ABDOMEN & PELVIS STOMACH AND BOWEL: No evidence of bowel obstruction. Posterior duodenal diverticulum off the third/se cond portion the appendix is normal. Wall thickening of the right rectal wall remains present. Modera te large amount stool throughout the colon PERITONEUM: No evidence of pneumoperitoneum or free fluid. VASCULATURE: No evidence of aortic aneurysm. MUSCULOSKELETAL: No acute osseous abnormalities LYMPH NODES: No gross evidence for lymphadenopathy. SOFT TISSUE/ABDOMINAL WALL: Unremarkable IMPRESSION: 1. Right rectal wall wall thickening with innumerable foci throughout the liver compatible with prim letha malignancy and metastatic disease as reported in history. This felt to be progression of the live r lesions which are poorly compared to prior CT different phase of contrast. 2. No evidence for acute process within the thorax. 3. The left upper quadrant is relatively unremarkable there is moderate to large amount of stool thr oughout the colon.
--- NOTE | 2023-09-08 16:20 | XR ---
EXAMINATION TYPE: XR chest 1V DATE OF EXAM: 09/08/2023 3:51 PM CLINICAL INDICATION:Female, 63 years old with history of pain; [facility] COMPARISON: Chest radiographs from 05/07/2023. TECHNIQUE: XR chest 1V Frontal view of the chest. FINDINGS: Lungs/Pleura: There is no evidence of pleural effusion, focal consolidation, or pneumothorax. Pulmonary vascularity: Unremarkable. Heart/mediastinum: Cardiomediastinal silhouette is unremarkable. Atherosclerotic calcifications are seen in the aorta. Musculoskeletal: No acute osseous pathology. IMPRESSION: No acute cardiopulmonary disease/process.
[2023-09-08] MEDS: SODIUM CHLORIDE 0.9% 2,000 ML IV ONE (17:00)
[2023-09-08] MEDS ORDERED: NALOXONE 0.4 MG/ML 1 ML VIAL IV PRN (17:03)
[2023-09-08] MEDS: SENNOSIDES-DOCUSATE SODIUM 1 EACH TAB PO STA (19:16)
[2023-09-08] MEDS: HYDROmorphone 1 MG/ML 1 ML SYRINGE IVP PRN (20:01)
[2023-09-08] MEDS: SODIUM CHLORIDE 0.9% 1,000 ML IV SCH (20:20)
[2023-09-08] MEDS: GLYCERIN ADULT SUPPOSITORY 1 EACH RECTAL STA (22:58)
[2023-09-08] MEDS: NA PHOS,M-B/NA PHOS,DI-BA 133 ML ENEMA RECTAL STA (22:59)
[2023-09-08] MEDS: ONDANSETRON 4 MG/2 ML VIAL IVP PRN (23:51)
[2023-09-09 01:14] LABS: Appearance,Urine Turbid (Clear); Bacteria,Urine Occasional /hpf; Bilirubin,Urine Negative (Negative); Blood,Urine Trace (Negative); Color,Urine Colorless; Glucose,Urine (UA) Negative (Negative); Ketones,Urine Negative (Negative); Leukocyte Esterase,Urine Large (Negative); Mucus,Urine Rare /hpf; Nitrite,Urine Negative (Negative); Protein,Urine 1+ (Negative); RBC,Urine 9 /hpf (0-5); Squamous Epithelial Cell,Urine 31 /hpf (0-4); Urobilinogen,Urine <2.0 mg/dL (<2.0); WBC,Urine 48 /hpf (0-5)
[2023-09-09 01:17] LABS: Specific Gravity,Urine >1.050 (1.001-1.035)
[2023-09-09] MEDS: SENNOSIDES-DOCUSATE SODIUM 1 EACH TAB PO SCH ×2 (08:29→20:40)
[2023-09-09 09:44] LABS: ALT 37 U/L (4-34); AST 46 U/L (14-36); African American GFR (CKD) >90 (>60 ml/min/1.73 sqM); Albumin 3.1 g/dL (3.5-5.0); Albumin/Globulin Ratio 1.3; Alkaline Phosphatase 490 U/L (38-126); Anion Gap 5 mmol/L; Blood Urea Nitrogen 21 mg/dL (7-17); Calcium 8.7 mg/dL (8.4-10.2); Carbon Dioxide 24 mmol/L (22-30); Chloride 109 mmol/L (98-107); Globulin 2.4 g/dL; Glucose 102 mg/dL (74-99); Magnesium 1.7 mg/dL (1.6-2.3); Non-African American GFR(CKD) >90 (>60 ml/min/1.73 sqM); Phosphorus 3.8 mg/dL (2.5-4.5); Potassium 4.4 mmol/L (3.5-5.1); Sodium 138 mmol/L (137-145); Total Bilirubin 0.6 mg/dL (0.2-1.3); Total Protein 5.5 g/dL (6.3-8.2)
[2023-09-09 10:40] LABS: Basophils % (A) 0 %; Eosinophils % (A) 0 %; HCT 29.7 % (34.0-46.0); Hypochromasia Slight; Lymphocytes # (A) 0.7 k/uL (1.0-4.8); Lymphocytes % (A) 5 %; MCH 33.1 pg (25.0-35.0); MCHC 31.9 g/dL (31.0-37.0); MCV 103.9 fL (80.0-100.0); Macrocytosis Slight; Mean Platelet Volume 8.5; Monocytes # (A) 0.8 k/uL (0-1.0); Monocytes % (A) 6 %; Neutrophils # (A) 11.9 k/uL (1.3-7.7); Neutrophils % (A) 87 %; Platelet Count 271 k/uL (150-450); RBC 2.85 m/uL (3.80-5.40); RDW 13.5 % (11.5-15.5); WBC 13.7 k/uL (3.8-10.6)
[2023-09-09 10:45] LABS: HGB 9.5 gm/dL (11.4-16.0)
[2023-09-09] MEDS ORDERED: DEXTROSE 50% SYRINGE 50 ML IVP PRN ×2 (11:25)
[2023-09-09 11:42] VITALS: BMI 23.8
[2023-09-09 12:32] LABS: Glucose,Whole Blood 132 mg/dL (70-110)
[2023-09-09] MEDS: INSULIN ASPART (NovoLOG) 100 UNIT/ML VIAL SQ SCH (12:38)
[2023-09-09] MEDS: MAGNESIUM HYDROXIDE 2,400 MG/30 ML CUP PO STA (15:36)
[2023-09-09 17:07] LABS: Glucose,Whole Blood 159 mg/dL (70-110)
--- NOTE | 2023-09-09 18:40 | P.HPIM ---
History of Present Illness H&P Date: 09/10/23 Chief Complaint: Nausea, vomiting, abdominal pain Is a 63-year-old female with past medical history significant for stage IV rectal cancer, completed chemotherapy and radiation, follows with Dr. Pathak, presented to the ER with nausea, vomiting and epigastric to upper back pain for approximately 1 week. Reports her nausea medication has not been helpful. States she is waiting for a follow-up appointment with Dr. Pathak regarding future plans. Chest abdomen and pelvis CT reported right rectal wall thickening with innumerable foci throughout the liver compatible with primary malignancy and metastatic disease, felt to be progression of liver lesions, poorly compared to prior CT, no evidence for acute process within the thorax, left upper quadrant is relatively unremarkable, moderate to large amount of stool throughout the colon. Chest x-ray reported no acute cardiopulmonary disease/process. EKG reporting sinus tachycardia. Afebrile, WBC 13.7, lactic acid 1.4. Hemoglobin 11.2, 9.5, MCV 103.9, platelets 340, 271. Renal function stable, electrolytes within normal limits. Blood sugar stable, T. bili 0.6, AST 70, 46, ALT 53, 37, alk phos 615, 490. UA reporting occasional bacteria, few WBC clumps, 9 RBCs, 48 WBCs, large leukocytes, negative nitrates, empiric antibiotics initiated. Review of Systems ROS Statement: Those systems with pertinent positive or pertinent negative responses have been documented in the HPI. ROS Other: All systems not noted in ROS Statement are negative. Past Medical History Past Medical History: Cancer, Diabetes Mellitus, Hyperlipidemia, Hypertension Additional Past Medical History / Comment(s): rectal ca History of Any Multi-Drug Resistant Organisms: None Reported Past Surgical History: Hysterectomy Past Anesthesia/Blood Transfusion Reactions: No Reported Reaction Past Psychological History: No Psychological Hx Reported Smoking Status: Current every day smoker Past Alcohol Use History: None Reported Additional Past Alcohol Use History / Comment(s): has not had any alcohol since 2011, pt states smoking one pack of cigarettes every 3 days Past Drug Use History: Marijuana Additional Drug Use History / Comment(s): Pt states she has smoked marijuana a couple times since this recent pain started - Past Family History Mother Family Medical History: CVA/TIA Father Family Medical History: Cancer Medications and Allergies Home Medications Medication Instructions Recorded Confirmed Type Atorvastatin [Lipitor] 20 mg PO DAILY 02/28/22 09/08/23 History Insulin Degludec [Tresiba 12 units SQ DAILY 02/28/22 09/08/23 History Flextouch U-200 Pen] lisinopriL [Prinivil] 10 mg PO DAILY 02/28/22 09/08/23 History Albuterol Sulfate [Albuterol 1 - 2 puff PO RT-Q6H PRN 02/06/23 09/08/23 History Sulfate Hfa] Allergies Allergy/AdvReac Type Severity Reaction Status Date / Time Penicillins Allergy Anaphylaxis Verified 09/08/23 15:44 & Hives Sulfa (Sulfonamide Allergy Anaphylaxis Verified 09/08/23 15:44 Antibiotics) & Hives steroids Allergy Diarrhea Uncoded 09/08/23 15:44 Physical Exam Vitals: Vital Signs Temp Pulse Pulse Resp BP BP BP 09/09/23 12:30 98 F 73 17 101/62 09/09/23 07:41 97.8 F 78 15 114/70 09/09/23 02:06 76 81/48 92/57 09/09/23 01:19 98.5 F 91 18 86/54 09/08/23 19:35 97.4 F L 100 20 150/60 09/08/23 19:15 80 16 118/60 09/08/23 17:01 85 16 116/63 09/08/23 16:48 82 16 83/51 09/08/23 15:33 92 16 101/61 09/08/23 15:18 101 H 18 109/71 09/08/23 13:39 98.2 F 113 H 20 86/45 Pulse Ox 09/09/23 12:30 95 09/09/23 07:41 98 09/09/23 02:06 09/09/23 01:19 96 09/08/23 19:35 99 09/08/23 19:15 95 09/08/23 17:01 97 09/08/23 16:48 97 09/08/23 15:33 96 09/08/23 15:18 97 09/08/23 13:39 98 Intake and Output 09/08/23 09/09/23 09/09/23 22:59 06:59 14:59 Intake Total 1170 Balance 1170 Intake: Intake, IV Titration 1170 Amount Sodium Chloride 0.9% 1, 1170 000 ml @ 130 mls/hr IV . Q7H42M [facility] Rx#:[id number] Other: Voiding Method Toilet # Voids 1 Weight 58.967 kg 58.967 kg PHYSICAL EXAM: VITAL SIGNS: [As above] GENERAL: Alert and oriented x 3, sitting up in bed, no acute distress HEENT: Normocephalic, atraumatic ,conjunctivae normal. eyes normal. NECK: Supple, no JVD. No thyroid enlargement. No LNs CARDIOVASCULAR: S1, S2 regular. No murmur RESPIRATION: Unlabored, equal air entry, clear to auscultation , bilateral bases diminished. ABDOMEN: Soft, mild bloating, diffuse tenderness. No guarding. no masses palpable. No guarding, no rigidity, bowel sounds heard. LEGS: No edema. no swelling PSYCHIATRY: Alert and oriented X3, mood and affect normal. NERVOUS SYSTEM: Cranial N 2-12 grossly normal. No focal deficits. Strength and sensation grossly intact. Skin: Warm and dry, no rash Results CBC & Chem 7: 09/09/23 07:46 09/09/23 07:46 Labs: Abnormal Lab Results - Last 24 Hours (Table) 09/08/23 09/08/23 09/09/23 Range/Units 13:43 13:43 00:05 WBC 15.1 H (3.8-10.6) k/uL RBC 3.34 L (3.80-5.40) m/uL Hgb 11.2 L (11.4-16.0) gm/dL Hct 33.5 L (34.0-46.0) % MCV 100.5 H D (80.0-100.0) fL Neutrophils # 12.6 H (1.3-7.7) k/uL Lymphocytes # (1.0-4.8) k/uL Chloride (98-107) mmol/L BUN 32 H (7-17) mg/dL Glucose 173 H (74-99) mg/dL POC Glucose (mg/dL) (70-110) mg/dL AST 70 H (14-36) U/L ALT 53 H (4-34) U/L Alkaline Phosphatase 615 H (38-126) U/L Total Protein (6.3-8.2) g/dL Albumin (3.5-5.0) g/dL Urine Appearance Turbid H (Clear) Ur Specific [place] >1.050 H (1.001-1.035) Urine Protein 1+ H (Negative) Urine Blood Trace H (Negative) Ur Leukocyte Esterase Large H (Negative) Urine RBC 9 H (0-5) /hpf Urine WBC 48 H (0-5) /hpf Urine WBC Clumps Few H (None) /hpf Ur Squamous Epith Cells 31 H (0-4) /hpf Urine Bacteria Occasional H (None) /hpf Urine Mucus Rare H (None) /hpf 09/09/23 09/09/23 09/09/23 Range/Units 07:46 07:46 12:20 WBC 13.7 H (3.8-10.6) k/uL RBC 2.85 L (3.80-5.40) m/uL Hgb 9.5 L D (11.4-16.0) gm/dL Hct 29.7 L (34.0-46.0) % MCV 103.9 H (80.0-100.0) fL Neutrophils # 11.9 H (1.3-7.7) k/uL Lymphocytes # 0.7 L (1.0-4.8) k/uL Chloride 109 H (98-107) mmol/L BUN 21 H (7-17) mg/dL Glucose 102 H (74-99) mg/dL POC Glucose (mg/dL) 132 H (70-110) mg/dL AST 46 H (14-36) U/L ALT 37 H (4-34) U/L Alkaline Phosphatase 490 H (38-126) U/L Total Protein 5.5 L (6.3-8.2) g/dL Albumin 3.1 L (3.5-5.0) g/dL Urine Appearance (Clear) Ur Specific [place] (1.001-1.035) Urine Protein (Negative) Urine Blood (Negative) Ur Leukocyte Esterase (Negative) Urine RBC (0-5) /hpf Urine WBC (0-5) /hpf Urine WBC Clumps (None) /hpf Ur Squamous Epith Cells (0-4) /hpf Urine Bacteria (None) /hpf Urine Mucus (None) /hpf Thrombosis Risk Factor Assmnt - Choose All That Apply Each Risk Factor Represents 2 Points: Age 61-74 years Other congenital or acquired thrombophilia - If yes, enter type in comment: No Thrombosis Risk Factor Assessment Total Risk Factor Score: 2 Thrombosis Risk Factor Assessment Level: Low Risk Assessment and Plan Assessment: Abdominal pain, epigastric radiating to upper back, rectal mass. CT reporting right rectal wall thickening with anterior numerous foci throughout the liver compatible with primary malignancy and metastatic disease, suspected progression of liver lesions, poorly compared to prior CT, Dehydration secondary to the above Constipation secondary to all the above, CT reports moderate to large amount of stool throughout the colon Possible acute UTI Plan: Continue on current medication resume ,monitoring and symptomatic treatment. IV fluid hydration, cathartics. Urine culture in progress ,empiric antibiotics initiated. Pain management. Prognosis guarded given multiple complex medical issues. Oncology consulted, recommendations pending. The impression and plan of care has been dictated as directed. : I performed a history and examination of this patient, discussed the same with the dictator. I agree with the dictator's note ,documented as a scribe. Any additional findings or plans will be noted.
[2023-09-09 22:01] LABS: Glucose,Whole Blood 91 mg/dL (70-110)
[2023-09-10] MEDS: HYDROmorphone 0.5 MG/0.5 ML SYRINGE IVP PRN (01:38)
[2023-09-10 07:36] LABS: Glucose,Whole Blood 84 mg/dL (70-110)
--- NOTE | 2023-09-10 07:40 | P.CONS ---
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 She is a patient of Dr. Fiordaliza Pathak. She was initially seen in consultation on 02/07/2023 at [facility], where she presented for progressive constipation. This progressed to increased abdominal pain in the setting of progressive fatigue. She had lost 70 pounds over the past 2 years, some of which has been intentional as weight loss with diabetes mellitus type 2. She denied any prior colonoscopy. CT abdomen/pelvis revealed multiple hypodense lesions in the liver. Colonoscopy performed on 02/08/2023 noted 3 to 4 cm ulcerated lesion in the distal rectum extending up to the dentate line with pathology being consistent with invasive poorly differentiated neuroendocrine carcinoma. Following discharge, she has established with Dr. Peguero of radiation oncology with tentative plans to begin palliative radiation therapy to the rectum. She did have PET/CT performed on 02/27/2023, which was notable for liver metastases in addition to potential thoracic spine and early rib metastases. She initiated cycle 1 of carboplatin/etoposide after completing 9 fractions of palliative radiation therapy on 03/19/2023 and completed cycle 6 on 07/12/2023. Repeat staging CT scans performed on 05/24/2023 revealed decreased size and number of liver lesions with no new lesions consistent with a partial radiographic response. Staging CT scans performed on 08/13/2023 noted decreased number and size of previously noted liver lesions with no evidence of metastatic disease consistent with partial response. Patient presented to the emergency room with complaints of progressing abdominal pain and back pain and nausea vomiting. On admission chest x-ray revealed no acute cardiopulmonary processes. CT chest abdomen pelvis with contrast showed right rectal wall thickening with a foci throughout the liver. No evidence for acute processes within the thorax. Moderate to large amount of stool throughout the colon. Labs reviewed, WBC 15.1, hemoglobin 11.2, platelets 240,000. Creatinine 0.67, GFR greater than 90. Bilirubin 0.6, with transaminitis noted. Patient reports abdominal pain is diffuse but worse in the upper quadrants. Nausea vomiting has improved since admission. Patient states prior to admission her bowel movements which were at her baseline and denies constipation. Patient has been given suppositories and started on Senna and had 1 small BM this morning. Review of Systems 10 point ROS is negative except as stated in the HPI Past Medical History Past Medical History: Cancer, Diabetes Mellitus, Hyperlipidemia, Hypertension Additional Past Medical History / Comment(s): rectal ca History of Any Multi-Drug Resistant Organisms: None Reported Past Surgical History: Hysterectomy Past Anesthesia/Blood Transfusion Reactions: No Reported Reaction Past Psychological History: No Psychological Hx Reported Smoking Status: Current every day smoker Past Alcohol Use History: None Reported Additional Past Alcohol Use History / Comment(s): has not had any alcohol since 2011, pt states smoking one pack of cigarettes every 3 days Past Drug Use History: Marijuana Additional Drug Use History / Comment(s): Pt states she has smoked marijuana a couple times since this recent pain started - Past Family History Mother Family Medical History: CVA/TIA Father Family Medical History: Cancer Medications and Allergies Home Medications Medication Instructions Recorded Confirmed Type Atorvastatin [Lipitor] 20 mg PO DAILY 02/28/22 09/08/23 History Insulin Degludec [Tresiba 12 units SQ DAILY 02/28/22 09/08/23 History Flextouch U-200 Pen] lisinopriL [Prinivil] 10 mg PO DAILY 02/28/22 09/08/23 History Albuterol Sulfate [Albuterol 1 - 2 puff PO RT-Q6H PRN 02/06/23 09/08/23 History Sulfate Hfa] Allergies Allergy/AdvReac Type Severity Reaction Status Date / Time Penicillins Allergy Anaphylaxis Verified 09/08/23 15:44 & Hives Sulfa (Sulfonamide Allergy Anaphylaxis Verified 09/08/23 15:44 Antibiotics) & Hives steroids Allergy Diarrhea Uncoded 09/08/23 15:44 Physical Exam Vitals: Vital Signs Temp Pulse Pulse Resp BP BP BP 09/09/23 12:30 98 F 73 17 101/62 09/09/23 07:41 97.8 F 78 15 114/70 09/09/23 02:06 76 81/48 92/57 09/09/23 01:19 98.5 F 91 18 86/54 09/08/23 19:35 97.4 F L 100 20 150/60 09/08/23 19:15 80 16 118/60 09/08/23 17:01 85 16 116/63 09/08/23 16:48 82 16 83/51 09/08/23 15:33 92 16 101/61 09/08/23 15:18 101 H 18 109/71 Pulse Ox 09/09/23 12:30 95 09/09/23 07:41 98 09/09/23 02:06 09/09/23 01:19 96 09/08/23 19:35 99 09/08/23 19:15 95 09/08/23 17:01 97 09/08/23 16:48 97 09/08/23 15:33 96 09/08/23 15:18 97 Intake and Output 09/08/23 09/09/23 09/09/23 22:59 06:59 14:59 Intake Total 1170 Balance 1170 Intake: Intake, IV Titration 1170 Amount Sodium Chloride 0.9% 1, 1170 000 ml @ 130 mls/hr IV . Q7H42M [facility] Rx#:[id number] Other: Voiding Method Toilet # Voids 1 Weight 58.967 kg 58.967 kg - Constitutional General appearance: average body habitus, no acute distress - EENT Eyes: anicteric sclerae, EOMI ENT: hearing grossly normal - Respiratory Respiratory: bilateral: CTA - Cardiovascular Rhythm: regular Heart sounds: normal: S1, S2 - Gastrointestinal General gastrointestinal: soft, tenderness Localized gastrointestinal: tender: diffuse (>RUQ) - Integumentary Integumentary: no cyanotic - Neurologic Neurologic: CNII-XII intact - Musculoskeletal Musculoskeletal: strength equal bilaterally - Psychiatric Psychiatric: A&O x's 3 Results CBC & Chem 7: 09/09/23 07:46 09/09/23 07:46 Labs: Abnormal Lab Results - Last 24 Hours (Table) 09/09/23 09/09/23 09/09/23 Range/Units 00:05 07:46 07:46 WBC 13.7 H (3.8-10.6) k/uL RBC 2.85 L (3.80-5.40) m/uL Hgb 9.5 L D (11.4-16.0) gm/dL Hct 29.7 L (34.0-46.0) % MCV 103.9 H (80.0-100.0) fL Neutrophils # 11.9 H (1.3-7.7) k/uL Lymphocytes # 0.7 L (1.0-4.8) k/uL Chloride 109 H (98-107) mmol/L BUN 21 H (7-17) mg/dL Glucose 102 H (74-99) mg/dL POC Glucose (mg/dL) (70-110) mg/dL AST 46 H (14-36) U/L ALT 37 H (4-34) U/L Alkaline Phosphatase 490 H (38-126) U/L Total Protein 5.5 L (6.3-8.2) g/dL Albumin 3.1 L (3.5-5.0) g/dL Urine Appearance Turbid H (Clear) Ur Specific Tina >1.050 H (1.001-1.035) Urine Protein 1+ H (Negative) Urine Blood Trace H (Negative) Ur Leukocyte Esterase Large H (Negative) Urine RBC 9 H (0-5) /hpf Urine WBC 48 H (0-5) /hpf Urine WBC Clumps Few H (None) /hpf Ur Squamous Epith Cells 31 H (0-4) /hpf Urine Bacteria Occasional H (None) /hpf Urine Mucus Rare H (None) /hpf 09/09/23 Range/Units 12:20 WBC (3.8-10.6) k/uL RBC (3.80-5.40) m/uL Hgb (11.4-16.0) gm/dL Hct (34.0-46.0) % MCV (80.0-100.0) fL Neutrophils # (1.3-7.7) k/uL Lymphocytes # (1.0-4.8) k/uL Chloride (98-107) mmol/L BUN (7-17) mg/dL Glucose (74-99) mg/dL POC Glucose (mg/dL) 132 H (70-110) mg/dL AST (14-36) U/L ALT (4-34) U/L Alkaline Phosphatase (38-126) U/L Total Protein (6.3-8.2) g/dL Albumin (3.5-5.0) g/dL Urine Appearance (Clear) Ur Specific Tina (1.001-1.035) Urine Protein (Negative) Urine Blood (Negative) Ur Leukocyte Esterase (Negative) Urine RBC (0-5) /hpf Urine WBC (0-5) /hpf Urine WBC Clumps (None) /hpf Ur Squamous Epith Cells (0-4) /hpf Urine Bacteria (None) /hpf Urine Mucus (None) /hpf Chest x-ray: report reviewed CT scan - abdomen: report reviewed CT scan - chest: report reviewed CT scan - pelvis: report reviewed Assessment and Plan (1) Back pain Current Visit: Yes Status: Acute Priority: High Code(s): M54.9 - DORSALGIA, UNSPECIFIED SNOMED Code(s): 058051916 (2) Abdominal pain Current Visit: Yes Status: Acute Priority: High Code(s): R10.9 - UNSPECIFIED ABDOMINAL PAIN SNOMED Code(s): 87489221 (3) Constipation Current Visit: Yes Status: Acute Priority: Medium Code(s): K59.00 - CONSTIPATION, UNSPECIFIED SNOMED Code(s): 27008173 (4) Neuroendocrine neoplasm of rectum Current Visit: Yes Status: Acute Priority: High Code(s): D3A.8 - OTHER BENIGN NEUROENDOCRINE TUMORS SNOMED Code(s): 9898363079 Plan: Abdominal pain, back pain, constipation: Presented to the emergency room with complaints of progressing abdominal pain and back pain and nausea vomiting. -CT chest abdomen pelvis with contrast showed right rectal wall thickening with a foci throughout the liver. No evidence for acute processes within the thorax. Moderate to large amount of stool throughout the colon. -CBC showed WBC 15.1, hemoglobin 11.2, platelets 240,000. Bilirubin 0.6, with transaminitis noted. -Patient has been given suppositories and started on Senna and had 1 small BM this morning. Senokot S BID and Milk of magnesia ordered -Patient ran out of pain medications previously prescribed by rad onc, she is unsure of what medication/dosing she was taking. Pain med regimen adjusted. Hopefully once patient has a large BM, pain will improve. Will continue to monitor and make adjustments to regimen as needed Neuroendocrine carcinoma of rectum: -Full oncology history in HPI -She initiated cycle 1 of carboplatin/etoposide after completing 9 fractions of palliative radiation therapy on 03/19/2023 and completed cycle 6 on 07/12/2023. Repeat staging CT scans performed on 08/13/2023 noted decreased number and size of previously noted liver lesions with no evidence of metastatic disease consistent with partial response. -Unfortunately CT CAP appears to show disease progression. Results was discussed with patient and family today -Will schedule clinic f/u upon discharge to further discuss goals of care and treatment options
[2023-09-10] MEDS: MAGNESIUM HYDROXIDE 2,400 MG/30 ML CUP PO PRN (08:36)
[2023-09-10 10:33] LABS: Basophils # (A) 0.04 X 10*3/uL (0.00-0.10); Basophils % (A) 0.4 %; Eosinophils # (A) 0.15 X 10*3/uL (0.04-0.35); Eosinophils % (A) 1.3 %; HCT 28.4 % (37.2-46.3); Lymphocytes # (A) 0.79 X 10*3/uL (0.90-5.00); MCH 32.6 pg (27.0-32.0); MCHC 31.7 g/dL (32.0-37.0); MCV 102.9 FL (80.0-97.0); Mean Platelet Volume 10.4 FL (9.5-12.2); Monocytes % (A) 8.8 %; NRBC Per 100 WBC 0 X 10*3/uL (0.00-0.01); Neutrophils # (A) 9.26 X 10*3/uL (1.80-7.70); Platelet Count 241 X 10*3/uL (140-440); RBC 2.76 X 10*6/uL (4.10-5.20); RDW 13.2 % (11.5-14.5)
[2023-09-10 10:50] LABS: BUN/Creat Ratio 20.83 Ratio (12.00-20.00); Blood Urea Nitrogen 12.5 mg/dL (9.0-27.0); Chloride 106 mmol/L (96-109); Glucose 77 mg/dL (70-110); Potassium 4.4 mmol/L (3.5-5.5); Sodium 135 mmol/L (135-145)
[2023-09-10 10:51] LABS: ALT 27 U/L (8-44); AST 32 U/L (13-35); Albumin 3.1 g/dL (3.8-4.9); Albumin/Globulin Ratio 1.72 Ratio (1.60-3.17); Alkaline Phosphatase 457 U/L (41-126); Calcium 8.3 mg/dL (8.7-10.3); Carbon Dioxide 19.3 mmol/L (21.6-31.8); Globulin 1.8 g/dL (1.6-3.3); Total Bilirubin 0.4 mg/dL (0.3-1.2); Total Protein 4.9 g/dL (6.2-8.2)
[2023-09-10] MEDS: HYDROmorphone 1 MG/ML 1 ML SYRINGE IVP STA (11:28)
--- NOTE | 2023-09-10 11:38 | P.PN ---
Subjective Progress Note Date: 09/10/23 Principal diagnosis: abd pain In f/u today pt is reporting persistent abdominal pain. Any food or fluid that she ingests "goes down, right back up". She reports a heaviness in epigastric area, it is painful, she has to change positions frequently to help with pain. She is having intermittent nausea but vomiting is not associated with nausea. The pain radiates from the upper abdomen to her shoulders, previously pain went straight through to her back. She denies any acute changes in bowel or bladder habits, no rectal pain. She has been checked for pancreatitis with no elevation in labs. Objective - Vital Signs Vital signs: Vital Signs Temp 98.8 F 09/10/23 07:42 Pulse 80 09/10/23 07:42 Resp 16 09/10/23 07:42 BP 118/68 09/10/23 07:42 Pulse Ox 93 L 09/10/23 07:42 FiO2 Intake & Output 09/09/23 09/10/23 09/10/23 18:59 06:59 18:59 Intake Total 2100 Balance 2100 Weight 58.967 kg Intake: Intake, IV Titration 1560 Amount Sodium Chloride 0.9% 1, 1560 000 ml @ 130 mls/hr IV . Q7H42M [facility] Rx#:[id number] Oral 540 Other: Voiding Method Toilet Toilet # Voids 1 # Bowel Movements 2 - Constitutional General appearance: Present: average body habitus, cooperative, mild distress - EENT Eyes: Present: anicteric sclerae, EOMI ENT: Present: hearing grossly normal - Respiratory Details: Respirations even and unlabored at rest - Cardiovascular Details: Skin warm and dry to the touch, no diaphoresis - Peripheral edema leg Peripheral Edema: bilateral: None - Gastrointestinal Gastrointestinal Comment(s): Severe discomfort in the epigastric and right upper quadrant area to minimal palpation, the epigastric area is very firm to the touch, no pain in the lower abdomen, periumbilical area, bowel sounds are noted - Integumentary Integumentary: Present: normal - Neurologic Neurologic: Present: CNII-XII intact - Musculoskeletal Musculoskeletal: Present: strength equal bilaterally - Psychiatric Psychiatric: Present: A&O x's 3, appropriate affect, intact judgment & insight - Labs CBC & Chem 7: 09/10/23 06:53 09/10/23 06:53 Labs: Abnormal Lab Results - Last 24 Hours (Table) 09/09/23 09/09/23 09/10/23 Range/Units 12:20 17:05 06:53 WBC (4.50-10.00) X 10*3/uL RBC (4.10-5.20) X 10*6/uL Hgb (12.0-15.0) g/dL Hct (37.2-46.3) % MCV (80.0-97.0) FL MCH (27.0-32.0) pg MCHC (32.0-37.0) g/dL Immature Gran # (0.00-0.04) X 10*3/uL Neutrophils # (1.80-7.70) X 10*3/uL Lymphocytes # (0.90-5.00) X 10*3/uL Carbon Dioxide (21.6-31.8) mmol/L BUN/Creatinine Ratio (12.00-20.00) Ratio POC Glucose (mg/dL) 132 H 159 H (70-110) mg/dL Hemoglobin A1c 6.9 H (<=6.0) % Calcium (8.7-10.3) mg/dL Alkaline Phosphatase (41-126) U/L Total Protein (6.2-8.2) g/dL Albumin (3.8-4.9) g/dL 09/10/23 09/10/23 Range/Units 06:53 06:53 WBC 11.30 H (4.50-10.00) X 10*3/uL RBC 2.76 L (4.10-5.20) X 10*6/uL Hgb 9.0 L (12.0-15.0) g/dL Hct 28.4 L (37.2-46.3) % MCV 102.9 H (80.0-97.0) FL MCH 32.6 H (27.0-32.0) pg MCHC 31.7 L (32.0-37.0) g/dL Immature Gran # 0.06 H (0.00-0.04) X 10*3/uL Neutrophils # 9.26 H (1.80-7.70) X 10*3/uL Lymphocytes # 0.79 L (0.90-5.00) X 10*3/uL Carbon Dioxide 19.3 L (21.6-31.8) mmol/L BUN/Creatinine Ratio 20.83 H (12.00-20.00) Ratio POC Glucose (mg/dL) (70-110) mg/dL Hemoglobin A1c (<=6.0) % Calcium 8.3 L (8.7-10.3) mg/dL Alkaline Phosphatase 457 H (41-126) U/L Total Protein 4.9 L (6.2-8.2) g/dL Albumin 3.1 L (3.8-4.9) g/dL Microbiology - Last 24 Hours (Table) 09/09/23 00:05 Urine Culture - Final Urine,Voided Assessment and Plan (1) Vomiting without nausea Current Visit: Yes Status: Acute Priority: High Code(s): R11.11 - VOMITING WITHOUT NAUSEA SNOMED Code(s): 789853756864782 (2) Abdominal pain Current Visit: Yes Status: Acute Priority: High Code(s): R10.9 - UNSPECIFIED ABDOMINAL PAIN SNOMED Code(s): 61221492 (3) Constipation Current Visit: Yes Status: Acute Priority: Medium Code(s): K59.00 - CONSTIPATION, UNSPECIFIED SNOMED Code(s): 25380977 (4) Neuroendocrine neoplasm of rectum Current Visit: Yes Status: Acute Priority: Medium Code(s): D3A.8 - OTHER BENIGN NEUROENDOCRINE TUMORS SNOMED Code(s): 1078992508 Plan: Epigastric pain -Persistent epigastric pain. Patient does not associated with not eating or with eating. Pain is now radiating up to the shoulders versus straight through to the back. Described as heavy, inferior to the sternum. -Imaging reporting large to moderate amount of stool. Patient is on senna Colace, receiving milk of magnesia daily, has had an enema as well as a suppository. Only small amounts of soft stool have been expelled. Continue aggressive bowel regimen for now. [place] fluids as tolerated -GI consulted, case discussed with GI CIVILIAN JAIL OFFICER. -Pain medications continue Vomiting without nausea -Patient describes as liquid or foods "goes down, right up" -As above, GI consulted, case discussed with GI CIVILIAN JAIL OFFICER -Continue with supportive medications, IV fluids Constipation -Moderate to heavy stool burden per imaging. -Patient continues on multiple medications to promote stool movement -May have to consider surgical consult, pending GI evaluation Neuroendocrine carcinoma of rectum -Full oncology history in consult -S/P 9 fractions of palliative radiation therapy on 03/19/2023 and 6 cycles of chemo 07/12/2023. Repeat staging CT scans performed on 08/13/2023 noted decreased number and size of previously noted liver lesions with no evidence of metastatic disease consistent with partial response. Inpt CT CAP appears to show disease progression, report states that comparing images was difficult, no specific measurements. Plans are to review the images with radiologist. These short- term changes are suspicious, seem to be too minimal of a change to explain patient's drastic changes in symptoms. But, disease progression is not completely ruled out at this time -Pending GI evaluation, acute hep panel, patient's response to treatment of epigastric pain and constipation. Possibly more detailed imaging of the liver in the future. Doctor attests: I performed a history and physical examination of this patient, developed impression and plan of care. Discussed with dictator. I agree with dictators note, documented as a scribe.
[2023-09-10 12:24] LABS: Glucose,Whole Blood 103 mg/dL (70-110)
--- NOTE | 2023-09-10 12:36 | P.CONS ---
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 Pathak and Dr. Peguero radiation oncologist with metastasis to the liver under current radiation therapy with reported recent staging CT in August 2023 noting decreased number and size of previous noted liver lesions with no further metastatic disease. Patient had presented to the emergency department 2 days ago with complaints of progressing abdominal pain back pain with nausea and vomiting. Oncology currently following and evaluated patient today who continues to have vomiting without nausea and epigastric pain. Gastroenterology was consulted for further evaluation. Patient states she has had nausea and vomiting for the last weeks duration with the last time vomiting on Saturday. She states nausea has improved, she is tolerating clear liquid diet. She states prior to that for last weeks duration she would vomit after taking her pills and it was all water. Also complains of epigastric and upper abdominal pain with radiation into her back. Mildly elevated AST and ALT on admission which are normal today. No elevation in amylase or lipase. Patient states that she had 2 small bowel movements. No previous history of upper endoscopy, last colonoscopy 02/08/2023 with findings of the 3 to 4 cm ulcerated lesion in the distal rectum, 1 cm mid rectal polyp status post polypectomy and 2.5 cm rectosigmoid polyp status post polypectomy. Review of Systems REVIEW OF SYSTEMS: CARDIOPULMONARY: No chest pain or shortness of breath. Gastrointestinal: Epigastric pain. Vomiting without nausea. No hematemesis, coffee-ground emesis. No rectal bleeding, or melena. GENITOURINARY: No dysuria or hematuria. MUSCULOSKELETAL: Reports normal range of motion., Joint pain. SKIN: No rashes. No jaundice. ENDOCRINE: No chills, fevers. No excessive weight gain or loss. No polydipsia or polyuria. PSYCHIATRIC: Unremarkable. NEUROLOGY: No change in mental status. Denies dizziness, headache. ENT: Vision unremarkable. CONSTITUTIONAL: No recent weight loss. No fever, chills, night sweats. Past Medical History Past Medical History: Cancer, Diabetes Mellitus, Hyperlipidemia, Hypertension Additional Past Medical History / Comment(s): rectal ca History of Any Multi-Drug Resistant Organisms: None Reported Past Surgical History: Hysterectomy Past Anesthesia/Blood Transfusion Reactions: No Reported Reaction Past Psychological History: No Psychological Hx Reported Smoking Status: Current every day smoker Past Alcohol Use History: None Reported Additional Past Alcohol Use History / Comment(s): has not had any alcohol since 2011, pt states smoking one pack of cigarettes every 3 days Past Drug Use History: Marijuana Additional Drug Use History / Comment(s): Pt states she has smoked marijuana a couple times since this recent pain started - Past Family History Mother Family Medical History: CVA/TIA Father Family Medical History: Cancer Medications and Allergies Home Medications Medication Instructions Recorded Confirmed Type Atorvastatin [Lipitor] 20 mg PO DAILY 02/28/22 09/08/23 History Insulin Degludec [Tresiba 12 units SQ DAILY 02/28/22 09/08/23 History Flextouch U-200 Pen] lisinopriL [Prinivil] 10 mg PO DAILY 02/28/22 09/08/23 History Albuterol Sulfate [Albuterol 1 - 2 puff PO RT-Q6H PRN 02/06/23 09/08/23 History Sulfate Hfa] Allergies Allergy/AdvReac Type Severity Reaction Status Date / Time Penicillins Allergy Anaphylaxis Verified 09/08/23 15:44 & Hives Sulfa (Sulfonamide Allergy Anaphylaxis Verified 09/08/23 15:44 Antibiotics) & Hives steroids Allergy Diarrhea Uncoded 09/08/23 15:44 Physical Exam Vitals: Vital Signs Temp Pulse Resp BP BP Pulse Ox 09/10/23 07:42 98.8 F 80 16 118/68 93 L 09/10/23 01:13 98.8 F 85 16 113/67 91 L 09/09/23 18:59 99.3 F 79 16 107/67 94 L 09/09/23 12:30 98 F 73 17 101/62 95 Intake and Output 09/09/23 09/10/23 09/10/23 22:59 06:59 14:59 Intake Total 2100 Balance 2100 Intake: Intake, IV Titration 1560 Amount Sodium Chloride 0.9% 1, 1560 000 ml @ 130 mls/hr IV . Q7H42M [facility] Rx#:[id number] Oral 540 Other: Voiding Method Toilet # Voids 1 # Bowel Movements 2 General appearance: The patient is alert, oriented, appears in no acute distress. HET: Head is normocephalic and atraumatic. Conjunctiva pink. Sclera anicteric. Neck: Supple without lymphadenopathy. Trachea midline. Heart: Regular. Lungs: Equal expansion, normal respiratory effort. Abdomen: Soft, epigastric tenderness, nondistended. Skin: No rashes. No jaundice. Extremities: Normal skin color and turgor. No pedal edema. Neurological: No focal deficits. Alert and oriented x3. Results CBC & Chem 7: 09/10/23 06:53 09/10/23 06:53 Labs: Abnormal Lab Results - Last 24 Hours (Table) 09/09/23 09/09/23 09/10/23 Range/Units 12:20 17:05 06:53 WBC (4.50-10.00) X 10*3/uL RBC (4.10-5.20) X 10*6/uL Hgb (12.0-15.0) g/dL Hct (37.2-46.3) % MCV (80.0-97.0) FL MCH (27.0-32.0) pg MCHC (32.0-37.0) g/dL Immature Gran # (0.00-0.04) X 10*3/uL Neutrophils # (1.80-7.70) X 10*3/uL Lymphocytes # (0.90-5.00) X 10*3/uL Carbon Dioxide (21.6-31.8) mmol/L BUN/Creatinine Ratio (12.00-20.00) Ratio POC Glucose (mg/dL) 132 H 159 H (70-110) mg/dL Hemoglobin A1c 6.9 H (<=6.0) % Calcium (8.7-10.3) mg/dL Alkaline Phosphatase (41-126) U/L Total Protein (6.2-8.2) g/dL Albumin (3.8-4.9) g/dL 09/10/23 09/10/23 Range/Units 06:53 06:53 WBC 11.30 H (4.50-10.00) X 10*3/uL RBC 2.76 L (4.10-5.20) X 10*6/uL Hgb 9.0 L (12.0-15.0) g/dL Hct 28.4 L (37.2-46.3) % MCV 102.9 H (80.0-97.0) FL MCH 32.6 H (27.0-32.0) pg MCHC 31.7 L (32.0-37.0) g/dL Immature Gran # 0.06 H (0.00-0.04) X 10*3/uL Neutrophils # 9.26 H (1.80-7.70) X 10*3/uL Lymphocytes # 0.79 L (0.90-5.00) X 10*3/uL Carbon Dioxide 19.3 L (21.6-31.8) mmol/L BUN/Creatinine Ratio 20.83 H (12.00-20.00) Ratio POC Glucose (mg/dL) (70-110) mg/dL Hemoglobin A1c (<=6.0) % Calcium 8.3 L (8.7-10.3) mg/dL Alkaline Phosphatase 457 H (41-126) U/L Total Protein 4.9 L (6.2-8.2) g/dL Albumin 3.1 L (3.8-4.9) g/dL Microbiology - Last 24 Hours (Table) 09/09/23 00:05 Urine Culture - Final Urine,Voided Comments: CT chest abdomen pelvis with contrast reports right rectal wall thickening with innumerable foci throughout the liver compatible with primary malignancy and metastatic disease as reported in history. This is felt to be progression of the liver lesions which are poorly compared to prior CT different phase of contrast. No evidence for acute process within the thorax. The left upper quadrant is relatively unremarkable there is moderate to large amount of stool throughout the colon. 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 Had rather acute onset nausea and vomiting and upper abdominal pain radiating into her shoulders all of last week and presented to the emergency department on Saturday. Since Saturday she has had no further vomiting, still has some mild nausea. Unclear etiology likely secondary to underlying malignancy. Continue with symptomatic and supportive treatment consider possible upper endoscopy if symptoms do not continue to improve. Current Visit: Yes Status: Acute Code(s): R11.2 - NAUSEA WITH VOMITING, UNSPECIFIED SNOMED Code(s): 66639827 (2) Abdominal pain Narrative/Plan: Unclear etiology of abdominal pain in the upper abdomen patient reports across the entire abdomen radiating into her back and shoulders has been ongoing for at least a couple weeks duration, likely secondary to metastasis to the liver. CT chest abdomen and pelvis without any acute findings other than stool throughout the colon consistent with constipation, she has had a couple small bowel movements today. Current Visit: Yes Status: Acute Priority: High Code(s): R10.9 - UNSPECIFIED ABDOMINAL PAIN SNOMED Code(s): 88611492 (3) Constipation Current Visit: Yes Status: Acute Priority: Medium Code(s): K59.00 - CONSTIPATION, UNSPECIFIED SNOMED Code(s): 57042420 (4) Neuroendocrine neoplasm of rectum Current Visit: Yes Status: Acute Priority: Medium Code(s): D3A.8 - OTHER BENIGN NEUROENDOCRINE TUMORS SNOMED Code(s): 3432332044 Plan: 1. Continue symptomatic and supportive care 2. Advance diet as tolerated, n.p.o. after midnight 3. Continue antiemetics as needed 4. Will add Protonix 40 mg daily 5. MiraLAX daily for constipation 6. Pain medication as needed 7. Encourage ambulation 8. Will proceed with EGD tomorrow Thank you for this consultation, we will continue to follow. Dr. Roxy Lomeli I agree with the dictator's note, documented as a scribe by Luisa Rios.
[2023-09-10] MEDS: polyethylene glycoL 3350 17 GM POWD.PACK PO SCH (12:56)
[2023-09-10 17:15] LABS: Glucose,Whole Blood 115 mg/dL (70-110)
[2023-09-10 17:27] LABS: Hepatitis A Antibody IgM Nonreactive (Nonreactive); Hepatitis B Core IgM Nonreactive (Nonreactive); Hepatitis B Surface Antigen Nonreactive (Nonreactive); Hepatitis C IgG Antibody Nonreactive (Nonreactive)
--- NOTE | 2023-09-10 17:49 | P.PN ---
Subjective Progress Note Date: 09/10/23 H&P Date: 09/10/23 Chief Complaint: Nausea, vomiting, abdominal pain Is a 63-year-old female with past medical history significant for stage IV rectal cancer, completed chemotherapy and radiation, follows with Dr. Pathak, presented to the ER with nausea, vomiting and epigastric to upper back pain for approximately 1 week. Reports her nausea medication has not been helpful. States she is waiting for a follow-up appointment with Dr. Pathak regarding future plans. Chest abdomen and pelvis CT reported right rectal wall thickening with innumerable foci throughout the liver compatible with primary malignancy and metastatic disease, felt to be progression of liver lesions, poorly compared to prior CT, no evidence for acute process within the thorax, left upper quadrant is relatively unremarkable, moderate to large amount of stool throughout the colon. Chest x-ray reported no acute cardiopulmonary disease/process. EKG reporting sinus tachycardia. Afebrile, WBC 13.7, lactic acid 1.4. Hemoglobin 11.2, 9.5, MCV 103.9, platelets 340, 271. Renal function stable, electrolytes within normal limits. Blood sugar stable, T. bili 0.6, AST 70, 46, ALT 53, 37, alk phos 615, 490. UA reporting occasional bacteria, few WBC clumps, 9 RBCs, 48 WBCs, large leukocytes, negative nitrates, empiric antibiotics initiated. 09/10/2023 maintained on IV fluid hydration .sitting up in bed, consuming her clear liquid breakfast. Tolerating well with no nausea or vomiting. 2 bowel movements yesterday-patient reports small. Recent medicated with oxycodone HCl, currently rating pain at a 5 out of 10. States she" wished people could get a shot like we do with our dogs when it is time to be put down". Palliative and hospice care discussed. Offered antidepressant such as Lexapro, patient declined states she is not depressed. Denies chest pain, palpitations or shortness of breath. Hemoglobin 9, down from 11.2 on admission. GI has been consulted per oncology. Blood sugars controlled, hemoglobin A1c 6.9. Renal function stable. Hepatitis serology nonreactive. Objective - Vital Signs Vital signs: Vital Signs Temp 99 F 09/10/23 13:23 Pulse 72 09/10/23 13:23 Resp 17 09/10/23 13:23 BP 118/74 09/10/23 13:23 Pulse Ox 94 L 09/10/23 13:23 FiO2 Intake & Output 09/09/23 09/10/23 09/10/23 18:59 06:59 18:59 Intake Total 2100 Balance 2100 Weight 58.967 kg Intake: Intake, IV Titration 1560 Amount Sodium Chloride 0.9% 1, 1560 000 ml @ 130 mls/hr IV . Q7H42M [facility] Rx#:[id number] Oral 540 Other: Voiding Method Toilet Toilet # Voids 1 # Bowel Movements 2 - Exam VITAL SIGNS: [As above] GENERAL: Alert and oriented x 3, sitting up in bed, no acute distress, eating her clear liquid breakfast. Teary-eyed at times. HEENT: Normocephalic, atraumatic ,conjunctivae pink. eyes normal. NECK: Supple, no JVD. No thyroid enlargement. No LNs CARDIOVASCULAR: S1, S2 regular. No murmur RESPIRATION: Unlabored, equal air entry, clear to auscultation , bilateral bases diminished. ABDOMEN: Soft, epigastric tenderness. No guarding. no masses palpable.+BS LEGS: No edema. no swelling NERVOUS SYSTEM: Cranial N 2-12 grossly normal. No focal deficits. Strength and sensation grossly intact. Skin: Warm and dry, no rash, - Labs CBC & Chem 7: 09/10/23 06:53 09/10/23 06:53 Labs: Abnormal Lab Results - Last 24 Hours (Table) 09/10/23 09/10/23 09/10/23 Range/Units 06:53 06:53 06:53 WBC 11.30 H (4.50-10.00) X 10*3/uL RBC 2.76 L (4.10-5.20) X 10*6/uL Hgb 9.0 L (12.0-15.0) g/dL Hct 28.4 L (37.2-46.3) % MCV 102.9 H (80.0-97.0) FL MCH 32.6 H (27.0-32.0) pg MCHC 31.7 L (32.0-37.0) g/dL Immature Gran # 0.06 H (0.00-0.04) X 10*3/uL Neutrophils # 9.26 H (1.80-7.70) X 10*3/uL Lymphocytes # 0.79 L (0.90-5.00) X 10*3/uL Carbon Dioxide 19.3 L (21.6-31.8) mmol/L BUN/Creatinine Ratio 20.83 H (12.00-20.00) Ratio Hemoglobin A1c 6.9 H (<=6.0) % Calcium 8.3 L (8.7-10.3) mg/dL Alkaline Phosphatase 457 H (41-126) U/L Total Protein 4.9 L (6.2-8.2) g/dL Albumin 3.1 L (3.8-4.9) g/dL Microbiology - Last 24 Hours (Table) 09/09/23 00:05 Urine Culture - Final Urine,Voided Assessment and Plan Assessment: Abdominal pain, epigastric radiating to upper back, in a patient with history of neuroendocrine neoplasm of rectum. CT reporting right rectal wall thickening with anterior numerous foci throughout the liver compatible with primary malignancy and metastatic disease, suspected progression of liver lesions, poorly compared to prior CT. Anemia secondary to the above Dehydration secondary to the above Constipation secondary to all the above, CT reports moderate to large amount of stool throughout the colon Possible acute UTI, ruled out, urine culture negative. Plan: Continue on current medication resume ,monitoring and symptomatic treatment. Maintain IV fluid hydration, bowel regimen. GI consult in place, recommendations pending. pain management. prognosis guarded given multiple complex medical issues. Oncology following with recommendations noted and appreciated. Prognosis guarded given multiple complex medical issues. The impression and plan of care has been dictated as directed. : I performed a history and examination of this patient, discussed the same with the dictator. I agree with the dictator's note ,documented as a scribe. Any additional findings or plans will be noted.
[2023-09-10 20:16] LABS: Glucose,Whole Blood 173 mg/dL (70-110)
[2023-09-11 06:03] LABS: Glucose,Whole Blood 111 mg/dL (70-110)
[2023-09-11] MEDS: PANTOPRAZOLE 40 MG/10 ML VIAL IVP SCH (09:21)
[2023-09-11 12:22] LABS: Glucose,Whole Blood 112 mg/dL (70-110)
[2023-09-11 12:22] LABS: Basophils # (A) 0.04 X 10*3/uL (0.00-0.10); Basophils % (A) 0.4 %; Eosinophils # (A) 0.15 X 10*3/uL (0.04-0.35); Eosinophils % (A) 1.6 %; HCT 28.5 % (37.2-46.3); HGB 9.4 g/dL (12.0-15.0); Lymphocytes # (A) 0.77 X 10*3/uL (0.90-5.00); Lymphocytes % (A) 8.4 %; MCH 32.4 pg (27.0-32.0); MCV 98.3 FL (80.0-97.0); Mean Platelet Volume 10.3 FL (9.5-12.2); Monocytes # (A) 0.76 X 10*3/uL (0.20-1.00); Monocytes % (A) 8.3 %; NRBC Per 100 WBC 0 X 10*3/uL (0.00-0.01); Neutrophils # (A) 7.35 X 10*3/uL (1.80-7.70); Neutrophils % (A) 80.6 %; Platelet Count 257 X 10*3/uL (140-440); RDW 12.7 % (11.5-14.5); WBC 9.13 X 10*3/uL (4.50-10.00)
[2023-09-11 12:23] LABS: BUN/Creat Ratio 12.33 Ratio (12.00-20.00); Blood Urea Nitrogen 7.4 mg/dL (9.0-27.0); Calcium 8.6 mg/dL (8.7-10.3); Carbon Dioxide 21.9 mmol/L (21.6-31.8); Chloride 103 mmol/L (96-109); Glucose 106 mg/dL (70-110); Potassium 4.3 mmol/L (3.5-5.5); Sodium 136 mmol/L (135-145)
[2023-09-11] MEDS: IV FLUID CONTINUATION 1,000 ML IV ONE (12:56)
[2023-09-11] MEDS ORDERED: LIDOCAINE 1% INJ 10MG/ML (20 ML MDV) ONE (12:56)
[2023-09-11] MEDS ORDERED: PROPOFOL 10 MG/ML 20 ML VIAL IV ONE (12:56)
--- NOTE | 2023-09-11 13:09 | P.PCN ---
Date of Procedure: 09/11/23 Procedure(s) Performed: BRIEF HISTORY: Patient is a 63-year-old, pleasant, white female admitted to hospital with epigastric discomfort, epigastric fullness and pressure-like sensation in this area associate with intermittent nausea vomiting and constipation for the last few months duration. She was diagnosed with metastatic neuroendocrine tumor of the rectum in February 2023 following which she had radiation therapy as well as chemotherapy.. PROCEDURE PERFORMED: Esophagogastroduodenoscopy with biopsy. PREOPERATIVE DIAGNOSIS: Epigastric fullness, pressure/pain and nausea vomiting. IV sedation per anesthesia. PROCEDURE: After informed consent was obtained, the patient was brought into the endoscopy unit. IV sedation was administered by Anesthesia under continuous monitoring. Initially the Olympus GIF-140 video endoscope was inserted into the mouth. Esophagus intubated without any difficulty. It was gradually advanced into the stomach and duodenum and carefully examined. The bulb and the second part of the duodenum appeared normal. The scope at this time was withdrawn to the stomach, adequately insufflated with air, and upon careful examination, mucosa of the antrum, gastritis and biopsies were done from this area. In the distal part of the stomach along the lesser curvature there was a 7 mm broad- based polyp with small superficial central ulceration and multiple biopsies were done from this area. Rest of the body, cardia and the fundus appeared normal. The scope was then withdrawn into the esophagus. The GE junction was located at 39 cm from the incisors. The esophagus appeared normal. There were no erosions or ulcerations seen and the patient tolerated the procedure well. IMPRESSION: 1. Mild antral gastritis. 2. 7 mm polyp in the distal body of the stomach with central small ulceration s/p multiple biopsies. RECOMMENDATIONS: The findings of this examination were discussed with the patient. Follow the biopsy results. Continue Protonix 40 mg daily and antiemetics as needed. Recommend small frequent meals..
[2023-09-11] MEDS: polyethylene glycoL 3350 17 GM POWD.PACK PO SCH (13:44)
[2023-09-11 17:00] LABS: Glucose,Whole Blood 120 mg/dL (70-110)
[2023-09-11 20:21] LABS: Glucose,Whole Blood 137 mg/dL (70-110)
[2023-09-12 07:34] LABS: Glucose,Whole Blood 122 mg/dL (70-110)
[2023-09-12 12:39] LABS: Glucose,Whole Blood 126 mg/dL (70-110)
--- NOTE | 2023-09-12 15:31 | P.PN ---
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 Pathak and Dr. Peguero radiation oncologist with metastasis to the liver under current radiation therapy with reported recent staging CT in August 2023 noting decreased number and size of previous noted liver lesions with no further metastatic disease. Patient had presented to the emergency department 2 days ago with complaints of progressing abdominal pain back pain with nausea and vomiting. Oncology currently following and evaluated patient today who continue s to have vomiting without nausea and epigastric pain. Gastroenterology was consulted for further evaluation. Patient states she has had nausea and vomiting for the last weeks duration with the last time vomiting on Saturday. She states nausea has improved, she is tolerating clear liquid diet. She states prior to that for last weeks duration she would vomit after taking her pills and it was all water. Also complains of epigastric and upper abdominal pain with radiation into her back. Mildly e levated AST and ALT on admission which are normal today. No elevation in amylase or lipase. Patient states that she had 2 small bowel movements. No previous history of upper endoscopy, last colonoscopy 02/08/2023 with findings of the 3 to 4 cm ulcerated lesion in the distal rectum, 1 cm mid rectal polyp status post polypectomy and 2.5 cm rectosigmoid polyp status post polypectomy. 09/12/2023 Patient seen and examined today as a follow-up. States she is trying to have a bowel movement. No abdominal pain, nausea or vomiting. She underwent upper endoscopy yesterday with findings of mild antral gastritis and a 7 mm polyp distal body of stomach with small ulceration status post multiple biopsies. Objective - Vital Signs Vital signs: Vital Signs Temp 98.2 F 09/12/23 07:28 Pulse 84 09/12/23 07:28 Resp 16 09/12/23 07:28 BP 177/73 09/12/23 07:28 Pulse Ox 98 09/12/23 07:28 FiO2 Intake & Output 09/11/23 09/12/23 09/12/23 18:59 06:59 18:59 Intake Total 1300 Balance 1300 Intake: IV 100 Intake, IV Titration 600 Amount Sodium Chloride 0.9% 1, 600 000 ml @ 130 mls/hr IV . Q7H42M [facility] Rx#:[id number] Oral 600 Other: Voiding Method Toilet Toilet Toilet # Voids 2 1 - Exam General appearance: The patient is alert, oriented, appears in no acute distress. HET: Head is normocephalic and atraumatic. Conjunctiva pink. Sclera anicteric. Neck: Supple without lymphadenopathy. Abdomen: Soft, nontender, nondistended with bowel sounds. No guarding or rigidity. Extremities: Normal skin color and turgor. No pedal edema Skin: No rashes, no jaundice Neurological: No focal deficits. Alert and oriented. - Labs CBC & Chem 7: 09/11/23 08:09 09/11/23 08:09 Labs: Abnormal Lab Results - Last 24 Hours (Table) 09/11/23 09/11/23 09/11/23 Range/Units 08:09 08:09 12:10 RBC 2.90 L (4.10-5.20) X 10*6/uL Hgb 9.4 L (12.0-15.0) g/dL Hct 28.5 L (37.2-46.3) % MCV 98.3 H (80.0-97.0) FL MCH 32.4 H (27.0-32.0) pg Immature Gran # 0.06 H (0.00-0.04) X 10*3/uL Lymphocytes # 0.77 L (0.90-5.00) X 10*3/uL BUN 7.4 L (9.0-27.0) mg/dL POC Glucose (mg/dL) 112 H (70-110) mg/dL Calcium 8.6 L (8.7-10.3) mg/dL 09/11/23 09/11/23 09/12/23 Range/Units 16:59 20:20 07:31 RBC (4.10-5.20) X 10*6/uL Hgb (12.0-15.0) g/dL Hct (37.2-46.3) % MCV (80.0-97.0) FL MCH (27.0-32.0) pg Immature Gran # (0.00-0.04) X 10*3/uL Lymphocytes # (0.90-5.00) X 10*3/uL BUN (9.0-27.0) mg/dL POC Glucose (mg/dL) 120 H 137 H 122 H (70-110) mg/dL Calcium (8.7-10.3) mg/dL Assessment and Plan (1) Nausea and vomiting Narrative/Plan: 63-year-old female diagnosed in February 2023 with poorly differentiated neuro endocrine tumor of the rectum who has undergone both chemotherapy and radiation therapy which was completed and July of this year. Had rather acute onset nausea and vomiting and upper abdominal pain radiating into her shoulders all of last week and presented to the emergency department on Saturday. Since Saturday she has had no further vomiting, still has some mild nausea. Unclear etiology likely secondary to underlying malignancy. Upper endoscopy completed mild antral gastritis, polyp in distal body of stomach with small ulceration status post multiple biopsies. Unlikely cause upper abdominal pain and back pain. Will continue with Protonix 40 mg daily and antiemetics as needed. Recommend small frequent meals. Current Visit: Yes Status: Acute Code(s): R11.2 - NAUSEA WITH VOMITING, UNSPECIFIED SNOMED Code(s): 76423140 (2) Abdominal pain Current Visit: Yes Status: Acute Priority: High Code(s): R10.9 - UNSPECIFIED ABDOMINAL PAIN SNOMED Code(s): 65329678 (3) Constipation Narrative/Plan: Continue with bowel regimen. Can consider magnesium citrate if needed Current Visit: Yes Status: Acute Priority: Medium Code(s): K59.00 - CONSTIPATION, UNSPECIFIED SNOMED Code(s): 51254292 (4) Neuroendocrine neoplasm of rectum Current Visit: Yes Status: Acute Priority: Medium Code(s): D3A.8 - OTHER BENIGN NEUROENDOCRINE TUMORS SNOMED Code(s): 6199983446 Plan: 1. Continue symptomatic and supportive care 2. Diet as tolerated 3. Continue antiemetics as needed 4. Continue Protonix 40 mg daily 5. MiraLAX twice daily for constipation 6. Pain medication as needed 7. Encourage ambulation 8. Increase water intake 9. Recommend small frequent meals Thank you for this consultation, patient is cleared from gastroenterology. We will sign off at this time. Discussed with patient follow-up with gastroenterology in 1 to [address] Roxy Lomeli I agree with the dictator's note, documented as a scribe by Luisa Rios.
--- NOTE | 2023-09-12 16:31 | P.PN ---
Subjective Progress Note Date: 09/11/23 H&P Date: 09/10/23 Chief Complaint: Nausea, vomiting, abdominal pain Is a 63-year-old female with past medical history significant for stage IV rectal cancer, completed chemotherapy and radiation, follows with Dr. Pathak, presented to the ER with nausea, vomiting and epigastric to upper back pain for approximately 1 week. Reports her nausea medication has not been helpful. States she is waiting for a follow-up appointment with Dr. Pathak regarding future plans. Chest abdomen and pelvis CT reported right rectal wall thickening with innumerable foci throughout the liver compatible with primary malignancy and metastatic disease, felt to be progression of liver lesions, poorly compared to prior CT, no evidence for acute process within the thorax, left upper quadrant is relatively unremarkable, moderate to large amount of stool throughout the colon. Chest x-ray reported no acute cardiopulmonary disease/process. EKG reporting sinus tachycardia. Afebrile, WBC 13.7, lactic acid 1.4. Hemoglobin 11.2, 9.5, MCV 103.9, platelets 340, 271. Renal function stable, electrolytes within normal limits. Blood sugar stable, T. bili 0.6, AST 70, 46, ALT 53, 37, alk phos 615, 490. UA reporting occasional bacteria, few WBC clumps, 9 RBCs, 48 WBCs, large leukocytes, negative nitrates, empiric antibiotics initiated. 09/10/2023 maintained on IV fluid hydration .sitting up in bed, consuming her clear liquid breakfast. Tolerating well with no nausea or vomiting. 2 bowel movements yesterday-patient reports small. Recent medicated with oxycodone HCl, currently rating pain at a 5 out of 10. States she" wished people could get a shot like we do with our dogs when it is time to be put down". Palliative and hospice care discussed. Offered antidepressant such as Lexapro, patient declined states she is not depressed. Denies chest pain, palpitations or shortness of breath. Hemoglobin 9, down from 11.2 on admission. GI has been consulted per oncology. Blood sugars controlled, hemoglobin A1c 6.9. Renal function stable. Hepatitis serology nonreactive. 09/11/2023 NPO, scheduled for a EGD today with GI. Reports mild nausea this morning spontaneously resolved without requiring medication. Reports pain remains severe, last medicated last night. Labs pending. Denies chest pain, palpitations or shortness of breath. Maintaining O2 sats in the 90s on room air. Objective - Vital Signs Vital signs: Vital Signs Temp 98.1 F 09/11/23 12:07 Pulse 79 09/11/23 12:07 Resp 16 09/11/23 12:07 BP 143/79 09/11/23 12:07 Pulse Ox 95 09/11/23 12:07 FiO2 Intake & Output 09/10/23 09/11/23 09/11/23 18:59 06:59 18:59 Intake Total 1140 100 Balance 1140 100 Intake: IV 100 Intake, IV Titration 600 Amount Sodium Chloride 0.9% 1, 600 000 ml @ 130 mls/hr IV . Q7H42M [facility] Rx#:[id number] Oral 540 Other: Voiding Method Toilet Toilet Toilet # Voids 1 0 # Bowel Movements 0 - Exam VITAL SIGNS: [As above] GENERAL: Alert and oriented x 3, sitting up in bed, no acute distress. HEENT: Normocephalic, atraumatic ,conjunctivae pink. eyes normal. NECK: Supple, no JVD. CARDIOVASCULAR: S1, S2 regular. No murmur RESPIRATION: Unlabored, equal air entry, clear to auscultation , bilateral bases diminished. ABDOMEN: Soft, epigastric tenderness. No guarding. no masses palpable.+BS LEGS: No edema. no swelling NERVOUS SYSTEM: Cranial N 2-12 grossly normal. No focal deficits. Strength and sensation grossly intact. Skin: Warm and dry, no rash, - Labs CBC & Chem 7: 09/11/23 08:09 09/11/23 08:09 Labs: Abnormal Lab Results - Last 24 Hours (Table) 09/10/23 09/10/23 09/11/23 Range/Units 17:11 20:14 06:01 RBC (4.10-5.20) X 10*6/uL Hgb (12.0-15.0) g/dL Hct (37.2-46.3) % MCV (80.0-97.0) FL MCH (27.0-32.0) pg Immature Gran # (0.00-0.04) X 10*3/uL Lymphocytes # (0.90-5.00) X 10*3/uL BUN (9.0-27.0) mg/dL POC Glucose (mg/dL) 115 H 173 H 111 H (70-110) mg/dL Calcium (8.7-10.3) mg/dL 09/11/23 09/11/23 09/11/23 Range/Units 08:09 08:09 12:10 RBC 2.90 L (4.10-5.20) X 10*6/uL Hgb 9.4 L (12.0-15.0) g/dL Hct 28.5 L (37.2-46.3) % MCV 98.3 H (80.0-97.0) FL MCH 32.4 H (27.0-32.0) pg Immature Gran # 0.06 H (0.00-0.04) X 10*3/uL Lymphocytes # 0.77 L (0.90-5.00) X 10*3/uL BUN 7.4 L (9.0-27.0) mg/dL POC Glucose (mg/dL) 112 H (70-110) mg/dL Calcium 8.6 L (8.7-10.3) mg/dL 09/11/23 Range/Units 16:59 RBC (4.10-5.20) X 10*6/uL Hgb (12.0-15.0) g/dL Hct (37.2-46.3) % MCV (80.0-97.0) FL MCH (27.0-32.0) pg Immature Gran # (0.00-0.04) X 10*3/uL Lymphocytes # (0.90-5.00) X 10*3/uL BUN (9.0-27.0) mg/dL POC Glucose (mg/dL) 120 H (70-110) mg/dL Calcium (8.7-10.3) mg/dL Assessment and Plan Assessment: Abdominal pain, epigastric radiating to upper back, in a patient with history of neuroendocrine neoplasm of rectum. CT reporting right rectal wall thickening with anterior numerous foci throughout the liver compatible with primary malignancy and metastatic disease, suspected progression of liver lesions, poorly compared to prior CT. Anemia secondary to the above Dehydration secondary to the above Constipation secondary to all the above, CT reports moderate to large amount of stool throughout the colon Possible acute UTI, ruled out, urine culture negative. Plan: Continue on current medication resume ,monitoring and symptomatic treatment. Pain management, RN notified patient needs pain medication. maintain IV fluid hydration, PPI, EGD pending. Discharge planning in progress for potentially later today pending EGD results, final DC recommendations and clearance per GI and oncology. The impression and plan of care has been dictated as directed. : I performed a history and examination of this patient, discussed the same with the dictator. I agree with the dictator's note ,documented as a scribe. Any additional findings or plans will be noted.
[2023-09-12 16:58] LABS: Glucose,Whole Blood 121 mg/dL (70-110)
--- NOTE | 2023-09-12 17:39 | P.PN ---
Subjective Progress Note Date: 09/12/23 Principal diagnosis: abd pain In f/u today pt reports she feels much better, she had large amount of stool over night. She still has some abd pain but feels it is getting better. S/P EGD with polyp removed. No F, V. Objective - Vital Signs Vital signs: Vital Signs Temp 98.2 F 09/12/23 07:28 Pulse 84 09/12/23 07:28 Resp 16 09/12/23 07:28 BP 177/73 09/12/23 07:28 Pulse Ox 98 09/12/23 07:28 FiO2 Intake & Output 09/11/23 09/12/23 09/12/23 18:59 06:59 18:59 Intake Total 1300 Balance 1300 Intake: IV 100 Intake, IV Titration 600 Amount Sodium Chloride 0.9% 1, 600 000 ml @ 130 mls/hr IV . Q7H42M [facility] Rx#:[id number] Oral 600 Other: Voiding Method Toilet Toilet Toilet # Voids 2 1 - Constitutional General appearance: Present: average body habitus, cooperative, no acute distress - EENT Eyes: Present: anicteric sclerae, EOMI ENT: Present: hearing grossly normal - Respiratory Details: resp even and unlabored - Gastrointestinal General gastrointestinal: Present: soft - Integumentary Integumentary: Present: normal - Neurologic Neurologic: Present: CNII-XII intact - Musculoskeletal Musculoskeletal: Present: strength equal bilaterally - Psychiatric Psychiatric: Present: A&O x's 3, appropriate affect, intact judgment & insight - Labs CBC & Chem 7: 09/11/23 08:09 09/11/23 08:09 Labs: Abnormal Lab Results - Last 24 Hours (Table) 09/11/23 09/11/23 09/11/23 Range/Units 08:09 08:09 12:10 RBC 2.90 L (4.10-5.20) X 10*6/uL Hgb 9.4 L (12.0-15.0) g/dL Hct 28.5 L (37.2-46.3) % MCV 98.3 H (80.0-97.0) FL MCH 32.4 H (27.0-32.0) pg Immature Gran # 0.06 H (0.00-0.04) X 10*3/uL Lymphocytes # 0.77 L (0.90-5.00) X 10*3/uL BUN 7.4 L (9.0-27.0) mg/dL POC Glucose (mg/dL) 112 H (70-110) mg/dL Calcium 8.6 L (8.7-10.3) mg/dL 09/11/23 09/11/23 09/12/23 Range/Units 16:59 20:20 07:31 RBC (4.10-5.20) X 10*6/uL Hgb (12.0-15.0) g/dL Hct (37.2-46.3) % MCV (80.0-97.0) FL MCH (27.0-32.0) pg Immature Gran # (0.00-0.04) X 10*3/uL Lymphocytes # (0.90-5.00) X 10*3/uL BUN (9.0-27.0) mg/dL POC Glucose (mg/dL) 120 H 137 H 122 H (70-110) mg/dL Calcium (8.7-10.3) mg/dL Assessment and Plan (1) Vomiting without nausea Current Visit: Yes Status: Resolved Priority: High Code(s): R11.11 - VOMITING WITHOUT NAUSEA SNOMED Code(s): 182706968701773 (2) Abdominal pain Current Visit: Yes Status: Resolved Priority: High Code(s): R10.9 - UNSPECIFIED ABDOMINAL PAIN SNOMED Code(s): 48991971 (3) Constipation Current Visit: Yes Status: Resolved Priority: Medium Code(s): K59.00 - CONSTIPATION, UNSPECIFIED SNOMED Code(s): 26905072 (4) Neuroendocrine neoplasm of rectum Current Visit: Yes Status: Acute Priority: Medium Code(s): D3A.8 - OTHER BENIGN NEUROENDOCRINE TUMORS SNOMED Code(s): 9920211766 Plan: Epigastric pain -Epigastric pain improved s/p BM. Pain is still there but milder per pt, no longer radiating up to the shoulders -Pt encouraged to continue aggressive bowel regimen, liberal fluids as tolerated -GI saw pt, s/p EGD with polyp removal -Pain medications continue PRN Vomiting without nausea -Resolved Constipation -Resolved Neuroendocrine carcinoma of rectum -Full oncology history in consult -S/P 9 fractions of palliative radiation therapy on 03/19/2023 and 6 cycles of chemo 07/12/2023. Repeat staging CT scans performed on 08/13/2023 noted decreased number and size of previously noted liver lesions with no evidence of metastatic disease consistent with partial response. Inpt CT CAP appears to show disease progression, report states that comparing images was difficult, no specific tello urements. Plans are to review the images with radiologist. These short-term changes are suspicious, seem to be too minimal of a change to explain patient's drastic symptoms. Symptoms are improving with BM and s/p EGD. Disease progression is not completely ruled out at this time, she will f/u with Med Onc short term. Doctor attests: I performed a history and physical examination of this patient, developed impression and plan of care. Discussed with dictator. I agree with dictators note, documented as a scribe.
[2023-09-12 20:08] LABS: Glucose,Whole Blood 187 mg/dL (70-110)
[2023-09-13 07:11] LABS: Glucose,Whole Blood 146 mg/dL (70-110)
[2023-09-13 11:55] LABS: Glucose,Whole Blood 139 mg/dL (70-110)
[2023-09-13 14:00] VITALS: BP 128/71; PULSE 62; RESP 18; TEMP 97.6
--- NOTE | 2023-09-13 15:01 | P.PN ---
Subjective Progress Note Date: 09/12/23 H&P Date: 09/10/23 Chief Complaint: Nausea, vomiting, abdominal pain Is a 63-year-old female with past medical history significant for stage IV rectal cancer, completed chemotherapy and radiation, follows with Dr. Pathak, presented to the ER with nausea, vomiting and epigastric to upper back pain for approximately 1 week. Reports her nausea medication has not been helpful. States she is waiting for a follow-up appointment with Dr. Pathak regarding future plans. Chest abdomen and pelvis CT reported right rectal wall thickening with innumerable foci throughout the liver compatible with primary malignancy and metastatic disease, felt to be progression of liver lesions, poorly compared to prior CT, no evidence for acute process within the thorax, left upper quadrant is relatively unremarkable, moderate to large amount of stool throughout the colon. Chest x-ray reported no acute cardiopulmonary disease/process. EKG reporting sinus tachycardia. Afebrile, WBC 13.7, lactic acid 1.4. Hemoglobin 11.2, 9.5, MCV 103.9, platelets 340, 271. Renal function stable, electrolytes within normal limits. Blood sugar stable, T. bili 0.6, AST 70, 46, ALT 53, 37, alk phos 615, 490. UA reporting occasional bacteria, few WBC clumps, 9 RBCs, 48 WBCs, large leukocytes, negative nitrates, empiric antibiotics initiated. 09/10/2023 maintained on IV fluid hydration .sitting up in bed, consuming her clear liquid breakfast. Tolerating well with no nausea or vomiting. 2 bowel movements yesterday-patient reports small. Recent medicated with oxycodone HCl, currently rating pain at a 5 out of 10. States she" wished people could get a shot like we do with our dogs when it is time to be put down". Palliative and hospice care discussed. Offered antidepressant such as Lexapro, patient declined states she is not depressed. Denies chest pain, palpitations or shortness of breath. Hemoglobin 9, down from 11.2 on admission. GI has been consulted per oncology. Blood sugars controlled, hemoglobin A1c 6.9. Renal function stable. Hepatitis serology nonreactive. 09/11/2023 NPO, scheduled for a EGD today with GI. Reports mild nausea this morning spontaneously resolved without requiring medication. Reports pain remains severe, last medicated last night. Labs pending. Denies chest pain, palpitations or shortness of breath. Maintaining O2 sats in the 90s on room air. 09/12/23 completed EGD yesterday reporting mild antral gastritis, 7 mm polyp distal body of stomach, central small ulceration status post multiple biopsies. Tolerated procedure well. Continue on bowel regimen. no bowel movement, states she does not feel constipated. Reports she normally does not have a bowel movement daily. Currently denies nausea or vomiting. Reports mid epigastric pain, radiating to back and shoulder blades rated at a 7 out of 10. Objective - Vital Signs Vital signs: Vital Signs Temp 98.8 F 09/12/23 12:08 Pulse 71 09/12/23 12:08 Resp 16 09/12/23 12:08 BP 157/79 09/12/23 12:08 Pulse Ox 96 09/12/23 12:08 FiO2 Intake & Output 09/11/23 09/12/23 09/12/23 18:59 06:59 18:59 Intake Total 1300 Balance 1300 Weight 58.967 kg Intake: IV 100 Intake, IV Titration 600 Amount Sodium Chloride 0.9% 1, 600 000 ml @ 130 mls/hr IV . Q7H42M [facility] Rx#:[id number] Oral 600 Other: Voiding Method Toilet Toilet Toilet # Voids 2 1 - Exam VITAL SIGNS: [As above] GENERAL: Alert and oriented x 3, sitting up in bed, no acute distress. HEENT: Normocephalic, atraumatic ,conjunctivae pink. eyes normal. NECK: Supple, no JVD. CARDIOVASCULAR: S1, S2 regular. No murmur RESPIRATION: Unlabored, equal air entry, clear to auscultation . ABDOMEN: Soft, nondistended, nontender. No guarding. no masses palpable.+BS LEGS: No edema. no swelling NERVOUS SYSTEM: Cranial N 2-12 grossly normal. No focal deficits. Skin: Warm and dry, no rash, - Labs CBC & Chem 7: 09/11/23 08:09 09/11/23 08:09 Labs: Abnormal Lab Results - Last 24 Hours (Table) 09/11/23 09/11/23 09/12/23 Range/Units 16:59 20:20 07:31 POC Glucose (mg/dL) 120 H 137 H 122 H (70-110) mg/dL 09/12/23 Range/Units 12:11 POC Glucose (mg/dL) 126 H (70-110) mg/dL Assessment and Plan Assessment: Abdominal pain, epigastric radiating to upper back, in a patient with history of neuroendocrine neoplasm of rectum. CT reporting right rectal wall thickening with anterior numerous foci throughout the liver compatible with primary malignancy and metastatic disease, suspected progression of liver lesions, poorly compared to prior CT. Anemia secondary to the above Dehydration secondary to the above Constipation secondary to all the above, CT reports moderate to large amount of stool throughout the colon Possible acute UTI, ruled out, urine culture negative. Plan: Continue on current medication resume ,monitoring and symptomatic treatment. Increase ambulation as tolerated maintain bowel regimen, PPI, small frequent meals. Pain management. discharge planning in progress for a.m. The impression and plan of care has been dictated as directed. : I performed a history and examination of this patient, discussed the same with the dictator. I agree with the dictator's note ,documented as a scribe. Any additional findings or plans will be noted.
--- NOTE | 2023-09-13 18:52 | P.DS ---
Providers Date of admission: 09/08/23 17:04 Expected date of discharge: 09/13/23 Attending physician: King Shen MD Consults: 09/09/23 08:38 Consult Physician Routine Consulting Provider: Teddy Luu Consult Reason/Comments: Rectal Ca Stage IV, pain, N/V/ Do you want consulting provider notified?: Yes Primary care physician: King Shen MD Hospital Course: Final Diagnoses: Abdominal pain, epigastric radiating to upper back, in a patient with history of neuroendocrine neoplasm of rectum. CT reporting right rectal wall thickening with anterior numerous foci throughout the liver compatible with primary malignancy and metastatic disease, suspected progression of liver lesions, poorly compared to prior CT. status post EGD reporting mild gastritis, 7 mm polyp distal body of stomach, central small ulceration status post multiple biopsies. Disease progression remains a possibility. Anemia secondary to the above Dehydration secondary to the above Constipation secondary to all the above, CT reports moderate to large amount of stool throughout the colon Possible acute UTI, ruled out, urine culture negative. Hospital course:Is a 63-year-old female with past medical history significant for stage IV rectal cancer, completed chemotherapy and radiation, follows with Dr. Pathak, presented to the ER with nausea, vomiting and epigastric to upper back pain for approximately 1 week. Reports her nausea medication has not been helpful. States she is waiting for a follow-up appointment with Dr. Pathak regarding future plans. Chest abdomen and pelvis CT reported right rectal wall thickening with innumerable foci throughout the liver compatible with primary malignancy and metastatic disease, felt to be progression of liver lesions, poorly compared to prior CT, no evidence for acute process within the thorax, left upper quadrant is relatively unremarkable, moderate to large amount of stool throughout the colon. Chest x-ray reported no acute cardiopulmonary disease/process. EKG reporting sinus tachycardia. Afebrile, WBC 13.7, lactic acid 1.4. Hemoglobin 11.2, 9.5, MCV 103.9, platelets 340, 271. Renal function stable, electrolytes within normal limits. Blood sugar stable, T. bili 0.6, AST 70, 46, ALT 53, 37, alk phos 615, 490. UA reporting occasional bacteria, few WBC clumps, 9 RBCs, 48 WBCs, large leukocytes, negative nitrates, empiric antibiotics initiated. 09/10/2023 maintained on IV fluid hydration .sitting up in bed, consuming her clear liquid breakfast. Tolerating well with no nausea or vomiting. 2 bowel movements yesterday-patient reports small. Recent medicated with oxycodone HCl, currently rating pain at a 5 out of 10. States she" wished people could get a shot like we do with our dogs when it is time to be put down". Palliative and hospice care discussed. Offered antidepressant such as Lexapro, patient declined states she is not depressed. Denies chest pain, palpitations or shortness of breath. Hemoglobin 9, down from 11.2 on admission. GI has been consulted per oncology. Blood sugars controlled, hemoglobin A1c 6.9. Renal function stable. Hepatitis serology nonreactive. 09/11/2023 NPO, scheduled for a EGD today with GI. Reports mild nausea this morning spontaneously resolved without requiring medication. Reports pain remains severe, last medicated last night. Labs pending. Denies chest pain, palpitations or shortness of breath. Maintaining O2 sats in the 90s on room air. 09/12/23 completed EGD yesterday reporting mild antral gastritis, 7 mm polyp distal body of stomach, central small ulceration status post multiple biopsies. Tolerated procedure well. Continue on bowel regimen. no bowel movement, states she does not feel constipated. Reports she normally does not have a bowel movement daily. Currently denies nausea or vomiting. Reports mid epigastric pain, radiating to back and shoulder blades rated at a 7 out of 10. Increase ambulation as tolerated maintain bowel regimen, PPI, small frequent meals. Pain management. discharge planning in progress for a.m. 09/13/2023 reports she had a large bowel movement last night, currently has no pain at rest rating it at a 0. Denies nausea ,vomiting or abdominal pain. Cleared by GI for discharge and patient has been advised to follow-up for biopsy results. Disease progression remains a possibility.patient will be discharged home today in a stable condition with guarded prognosis pending final DC recommendations/pain management, clearance for discharge per oncology. Patient has been advised to follow-up with oncology-to be arranged by oncology. The impression and plan of care has been dictated as directed. : I performed a history and examination of this patient, discussed the same with the dictator. I agree with the dictator's note ,documented as a scribe. Any additional findings or plans will be noted. Patient Condition at Discharge: Stable Plan - Discharge Summary Discharge Rx Participant: No New Discharge Prescriptions: New polyethylene glycoL 3350 [Miralax] 17 gm PO DAILY packet Magnesium Hydroxide [Milk of Magnesia] 2,400 mg PO DAILY PRN ml PRN Reason: Constipation Sennosides-Docusate Sodium [Senokot-S] 2 each PO BID tab Continue lisinopriL [Prinivil] 10 mg PO DAILY Insulin Degludec [Tresiba Flextouch U-200 Pen] 12 units SQ DAILY Albuterol Sulfate [Albuterol Sulfate Hfa] 1 - 2 puff PO RT-Q6H PRN PRN Reason: Shortness Of Breath Discontinued Atorvastatin [Lipitor] 20 mg PO DAILY Discharge Medication List Insulin Degludec [Tresiba Flextouch U-200 Pen] 12 units SQ DAILY 02/28/22 [History] lisinopriL [Prinivil] 10 mg PO DAILY 02/28/22 [History] Albuterol Sulfate [Albuterol Sulfate Hfa] 1 - 2 puff PO RT-Q6H PRN 02/06/23 [History] Magnesium Hydroxide [Milk of Magnesia] 2,400 mg PO DAILY PRN ml 09/13/23 [Rx] Sennosides-Docusate Sodium [Senokot-S] 2 each PO BID tab 09/13/23 [Rx] polyethylene glycoL 3350 [Miralax] 17 gm PO DAILY packet 09/13/23 [Rx] Follow up Appointment(s)/Referral(s): King Shen MD [Primary Care Provider] - 1 Week (Please call and make follow up appointment.) Neeta Lomeli MD [STAFF PHYSICIAN] - 09/30/23 1:00 pm (For biopsy results)
== END 2023-09-13 14:05 | disposition home or self-care (01) | DRG 844 ==
LOC: EC 13:20 → 5NMEDONC 17:03 → OBSVTOIN 17:04 → 5NMEDONC 17:14
PROVIDERS: ADMIT Family Medicine; ATTEND Family Medicine
PROC: 0DB78ZX Excision of Stomach, Pylorus, Via Natural or Artificial Opening Endoscopic, Diagnostic (ICD-10-PCS; principal; 2023-09-11 07:30)
PROC: 0DB68ZX Excision of Stomach, Via Natural or Artificial Opening Endoscopic, Diagnostic (ICD-10-PCS; principal; 2023-09-11 07:30)
DX: C7B.8 Other secondary neuroendocrine tumors (principal); C22.7 Other specified carcinomas of liver; K29.60 Other gastritis without bleeding; C7A.1 Malignant poorly differentiated neuroendocrine tumors; M54.50 Low back pain, unspecified; E11.9 Type 2 diabetes mellitus without complications; E78.5 Hyperlipidemia, unspecified; E86.0 Dehydration; K31.7 Polyp of stomach and duodenum; F17.200 Nicotine dependence, unspecified, uncomplicated; I10 Essential (primary) hypertension; K59.00 Constipation, unspecified; Z86.010 Personal history of colon polyps; Z79.4 Long term (current) use of insulin; Z79.899 Other long term (current) drug therapy; Z92.21 Personal history of antineoplastic chemotherapy; Z92.3 Personal history of irradiation; Z28.310 Unvaccinated for COVID-19; Z88.0 Allergy status to penicillin; Z88.2 Allergy status to sulfonamides; Z88.8 Allergy status to other drugs, medicaments and biological substances
CPT/HCPCS: 36415; 43239; 71045; 71260; 74177; 80048; 80053; 80074; 81001; 82150; 83036; 83605; 83690; 83735; 84100; 85025; 87086; 88305; 88341; 88342; 93005; 96361; 96374; 99285

== ENCOUNTER → 2023-09-27 | Outpatient (CLI) | payer BC ==
--- NOTE | 2023-09-27 16:20 | PE ---
EXAMINATION TYPE: PET CT fusion skull to thigh DATE OF EXAM: 09/27/2023 CLINICAL INDICATION:Female, 63 years old with history of C20 MALIGNANT NEOPLASM OF RECTUM; TECHNIQUE: Following the intravenous administration of 10.47 mCi of F-18 FDG, whole body images are performed from the skull base to the midthigh. Images are reviewed on the computer in the coronal, axial, and sagittal planes. Reconstructed rotating images are created on independent workstation and reviewed on the computer. A non-contrast CT is performed in conjunction with the PET scan. Glucose level 121 mg/dL CT DLP: 260.36 mGycm, Automated exposure control for dose reduction was used. COMPARISON: CT 09/08/2023, 08/13/2023, 05/25/2023, 02/07/2023, 02/06/2023, PET/CT None, MRI: None FINDINGS: Mediastinal SUV mean is 2.4. Hepatic parenchyma SUV mean is 2.9. SKULL BASE AND NECK: Diffuse uptake identified within the thyroid gland with a max SUV of 7.5. Clini matthew correlate for thyroiditis. CHEST, MEDIASTINUM, AND HILAR REGION: No suspicious radiotracer activity. ABDOMEN AND PELVIS: Innumerable FDG avid foci throughout the liver with a maximum SUV of 13.8. Additional focal adeola hepatic enlarged lymph node with maximum SUV of 15. Right inguinal FDG avid nonenlarged lymph node with a maximum SUV of 6.8. Right rectal wall thickening with focal FDG activity with a maximum SUV of 16. This corresponds to kn own rectal cancer. MUSCULOSKELETAL STRUCTURES: Focal radiotracer activity at the right first rib costochondral junction with a max SUV of 5.8. May r epresent inflammatory change. Focal radiotracer activity identified within the left hemisacrum without visualized CT abnormality. T his demonstrates a maximum SUV of 9.8. Suspicious for metastasis. Focal radiotracer activity identified within the posterior right iliac bone without visualized CT abn ormality. This demonstrates a maximum SUV of 13.7. Suspicious for metastasis. Additional focus of radiotracer identified within the proximal right femoral diaphysis without visual ized CT correlate. This demonstrates a maximum SUV of 9.6. Suspicious for metastasis. Focal radiotracer uptake identified within the anterior left iliac bone without CT correlate. This de monstrates a maximum SUV of 5.1. Indeterminate. Additional focal radiotracer uptake within the left scapula with a maximum SUV of 6.8. No CT correlat e. Indeterminate. There are 2 foci radiotracer uptake identified within the posterior left sixth and seventh ribs with a maximum SUV of 3.7. Indeterminate. OTHER CT: Moderate mucosal thickening of the left maxilla sinus. Moderate centrilobular emphysematous changes. Stable right lower lobe pleural-based 7 mm nodular density. No FDG activity. Bilateral luu tid bulb calcifications. Moderate sclerotic calcification of the aorta and its branches. Mitral annul us calcifications. Stable subcentimeter left adrenal gland nodule. Moderate colonic stool burden. Pel michael phleboliths. Presacral edema. IMPRESSION: 1. Focal FDG activity within the right aspect of the rectum related to known primary malignancy. 2. Innumerable FDG avid lesions throughout the liver compatible with known metastasis. 3. FDG avid adeola hepatis and right inguinal lymph nodes compatible with metastasis. 4. Scattered osseous focal FDG uptake without CT correlate. Findings are favored to represent osseou s metastasis.
== END | disposition home or self-care (01) ==
LOC: RADPETMAIN 11:20
PROVIDERS: ATTEND Internal Medicine
DX: C20 Malignant neoplasm of rectum (principal); K76.9 Liver disease, unspecified; R93.7 Abnormal findings on diagnostic imaging of other parts of musculoskeletal system
CPT/HCPCS: 78815; A9552